=== PATIENT | male | born 1950 | race African-American/Black ===

== ENCOUNTER 2016-10-07 22:03 | Inpatient (IN) | payer BC, OTHER ==
[2016-10-07 22:08] VITALS: BMI 23.3
--- NOTE | 2016-10-07 23:19 | PDOC ---
History of Present Illness - History of Present Illness Initial Comments: 10/08/16 00:43 Patient is a 66 year old male with significant medical hx of pancreatitis s/p pancreatic resection (1983), HTN, [place], cocaine use and ETOH abuse who is presenting to the ED with slurred speech, chest pain, and unsteady gait since yesterday. Yesterday the patient was discharged after a week long incarceration for public urination. The patient states that on his way out he realized that he was stumbling and having difficulty ambulating. The patient does not usually walk with a cane or a walker. Patient was noted to have slurred speech by his daughter when he got home and currently has slurred speech on interview. He is also noted to be drooling during interview, which he states is unusual. The patient also endorses an episode of non-radiating, centralized chest pain that occurred one hour ago without any shortness of breath or palpitations. Social Hx: ETOH abuse, cocaine use. Patients last drink was a beer he had prior to leaving for the ED. The patient last used cocaine last night. Daughter: [phone] <TrentChayito - Last Filed: 10/08/16 01:33> <Krysten,Charlie - Last Filed: 10/08/16 02:38> - General Chief Complaint: Weakness Stated Complaint: CHEST PAIN Time Seen by Provider: 10/07/16 23:19 Past History <Chayito Newman - Last Filed: 10/08/16 01:33> - Past Medical History Asthma: No Cardiac Disorders: No COPD: No Diabetes: No GI Disorders: Yes (H/O PANCREATITIS.) Disorders: No HTN: Yes Kidney Stones: No Suicide Attempt (Hx): No Seizures: No - Surgical History Abdominal Surgery: Yes (pancreatic resection in 1983) Appendectomy: No Cardiac Surgery: No Cholecystectomy: No Lung Surgery: No Neurologic Surgery: No Orthopedic Surgery: Yes (left knee in 1988) - Reproductive History Testicular Surgery: No - Psycho/Social/Smoking Cessation Hx Anxiety: No Suicidal Ideation: No Smoking History: Current every day smoker Have you smoked in the past 12 months: Yes Number of Cigarettes Smoked Daily: 4 Information on smoking cessation initiated: No 'Breaking Loose' booklet given: 10/01/11 Hx Alcohol Use: Yes (4x/week) Drug/Substance Use Hx: Yes (none x 3 months) Substance Use Type: Alcohol, Cocaine Hx Substance Use Treatment: Yes ([facility]) <Charlie Bashir - Last Filed: 10/08/16 02:38> - Past Medical History Allergies/Adverse Reactions: Allergies Allergy/AdvReac Type Severity Reaction Status Date / Time No Known Allergies Allergy Verified 10/07/16 23:29 Home Medications: Ambulatory Orders Unobtainable [Unobtainable] 10/07/16 Review of Systems - Review of Systems Comments:: 10/08/16 00:43 CONSTITUTIONAL: No fever, no chills, no fatigue EYES: No visual changes ENT: No ear pain, no sore throat CARDIOVASCULAR: Chest pain. No palpitations RESPIRATORY: No cough, no SOB GI: No abdominal pain, no nausea, no vomiting, no constipation, no diarrhea GENITOURINARY: No dysuria, no frequency, no hematuria MUSKULOSKELETAL: No backpain, no joint pain, no myalgias SKIN: No rash NEURO: Slurred speech, difficulty ambulating. No headache <Chayito Newman - Last Filed: 10/08/16 01:33> *Physical Exam - Vital Signs Last Vital Signs Temp Pulse Resp BP Pulse Ox 98 F 72 18 123/84 96 10/07/16 22:05 10/07/16 22:05 10/07/16 22:05 10/07/16 22:05 10/07/16 22:05 <Chayito Newman - Last Filed: 10/08/16 01:33> - Vital Signs Last Vital Signs Temp Pulse Resp BP Pulse Ox 98 F 72 18 123/84 96 10/07/16 22:05 10/07/16 22:05 10/07/16 22:05 10/07/16 22:05 10/07/16 22:05 - Physical Exam Comments: 10/08/16 02:26 EXAMINATION CONSTITUTIONAL: alert, awake; follows commands; + aob; in no apparent distress HEAD: Normocephalic; atraumatic EYES: PERRL; EOM intact; no scleral icterus; conj-pink ENMT: + minimal flattening of the right nasolabial fold; normal oropharynx NECK: Supple; non-tender; no jvd CARD: Normal S1, S2; no murmurs, rubs, or gallops RESP: Normal chest excursion with respiration; breath sounds clear and equal bilaterally; no wheezes, rhonchi, or rales ABD: Soft, non-distended; non-tender; no palpable organomegaly, no palpable hernias EXT: no obvious derm; limitted left knee fle due to long standing pain; non- tender to palpation; distal pulses intact SKIN: Warm, dry, no rash NEURO: aox3; + dysarthria; no pronation drift; motor: 5/5x4; gait-deferred <Charlie Bashir - Last Filed: 10/08/16 02:38> Heart Score/ECG Review #1 10/08/16 01:29 Sinus rhythm with 1st degree AV block Septal infarct, age undetermined Abnormal ECG <Chayito Newman - Last Filed: 10/08/16 01:33> ED Treatment Course - LABORATORY CBC & Chemistry Diagram: 10/08/16 00:38 10/08/16 00:30 - ADDITIONAL ORDERS Additional order review: 10/08/16 00:38 RBC 3.63 L MCV 97.2 H MCHC 32.5 RDW 13.3 D MPV 8.2 Neutrophils % 44.9 Lymphocytes % 39.9 Monocytes % 11.3 H Eosinophils % 2.3 Basophils % 1.6 - RADIOLOGY Radiograph Interpretation: 10/08/16 01:33 Drying Machine Tender: ([email or web address]) Report Date: 10/08/2016 00:41:00 Report Status: Preliminary Begin of Report Content Referring Physician: Charlie Bashir Patient Name: Alex Camarena THIS IS A PRELIMINARY REPORT FROM IM[facility] EXAM: CT brain without contrast IMAGES: [id number] EXAM DATE AND TIME: 2016-10-08 00:41:30.0 REASON FOR EXAM: Slurred speech and falls COMPARISON: CT brain October 04, 2007 FINDINGS: Involutional changes. No hemorrhage. No mass. Tiny lacunar infarct right alvin of indeterminate age. Otherwise no visible infarct at this time. Osseous structures are intact. THIS DOCUMENT HAS BEEN ELECTRONICALLY SIGNED Mauricio Quiroz MD 10/08/2016 01:11 AMBER Kim Please call Imaging Sustainable Development Policy Analyst [phone] ([phone]) with questions. End of Report Content <Chayito Newman - Last Filed: 10/08/16 01:33> - LABORATORY CBC & Chemistry Diagram: 10/08/16 00:38 10/08/16 00:30 <Charlie Bashir - Last Filed: 10/08/16 02:38> Medical Decision Making - Medical Decision Making 10/08/16 02:31 Patient is a 66-year-old male with history polysubstance abuse, [place], hypertension or [place] with multiple complains including ataxia, associated with frequent falls, dysarthria, intermittent urinary incontinence and intermittent left-sided chest pain. Most patient's symptoms started during or immediately after his incarceration. Patient was discharged 24 hours prior to arrival in the ER. In the ER, patient is awake and alert, with alcohol on breath. Physical exam is noted for dysarthria and minimal flattening of the right nasolabial fold. There is no pronation drift. Patient is unable to ambulate at this time.CT of head shows a small lacunar infarct within the alvin of unknown chronicity. CBC is within normal limit. CMP reveals elevated CPK likely related to cocaine induced rhabdomyolysis with a normal troponin. Moderate hypomagnesemia is also noted. Patient has received IV fluid and IV magnesium sulfate. We'll administer aspirin. Patient has also received IV thiamine. Patient will require admission for continuous IV hydration, cardiac evaluation regarding his chest pain, further evaluation of ataxia and dysarthria which may be related to a Wernicke's encephalopathy versus cerebellar infarct not appreciated on head CT. Will admit. <Charlie Bashir - Last Filed: 10/08/16 02:38> *DC/Admit/Observation/Transfer - Attestations Scribe Attestion: 10/08/16 00:44 Documentation prepared by Chayito Newman, acting as phlebotomist medical lab assistant for Charlie Bashir MD. <Chayito Newman - Last Filed: 10/08/16 01:33> - Discharge Dispostion Admit: Yes <Charlie Bashir - Last Filed: 10/08/16 02:38> Diagnosis at time of Disposition: Dysarthria, Hypomagnesemia Chest pain Qualifiers: Chest pain type: unspecified Qualified Code(s): R07.9 - Chest pain, unspecified Rhabdomyolysis Qualifiers: Rhabdomyolysis type: non-traumatic Qualified Code(s): M62.82 - Rhabdomyolysis - Discharge Dispostion Condition at time of disposition: Fair
[2016-10-07] MEDS ORDERED: THIAMINE HCL 200 MG/2 ML VIAL IVPB ONE (23:34)
[2016-10-08 00:36] LABS: BASOPHIL 1.6 % (0-2.0); EOSINOPHIL 2.3 % (0-4.5); MCH 31.6 pg (25.7-33.7); MCHC 32.5 g/dl (32.0-35.9); MEAN CELL VOLUME 97.2 fl (80-96); MEAN PLT VOLUME 8.2 fl (7.5-11.1); NEUTROPHILS 44.9 % (42.8-82.8); PLATELET COUNT 202 K/MM3 (134-434); RDW 13.3 % (11.9-15.9); WHITE BLOOD COUNT 5.4 K/mm3 (4.0-10.0)
[2016-10-08] MEDS ORDERED: THIAMINE HCL 200 MG/2 ML VIAL ONE (00:49)
[2016-10-08 01:02] LABS: INR 1.19 (0.82-1.09); PROTHROMBIN TIME (PATIENT) 13.1 SEC (9.98-11.88)
[2016-10-08 01:13] LABS: ALBUMIN 3.9 g/dl (3.4-5.0); ANION GAP 11 (8-16); CO2 29 mmol/L (21-32); CREATININE 0.8 mg/dL (0.7-1.3); GLUCOSE,RANDOM 74 mg/dL (74-106); SGPT/ALT 39 U/L (12-78)
[2016-10-08 01:26] LABS: ALK PHOS 68 U/L (45-117); BILIRUBIN,TOTAL 0.3 mg/dL (0.2-1.0); TOT PROT 7.4 g/dl (6.4-8.2); TROPONIN I < 0.02 ng/ml (0.00-0.05)
[2016-10-08 01:28] LABS: MAGNESIUM 1.4 mg/dL (1.8-2.4); SGOT/AST 67 U/L (15-37)
[2016-10-08] MEDS ORDERED: SODIUM CHLORIDE 500 ML IV STA (01:33)
[2016-10-08] MEDS ORDERED: MAGNESIUM SULF 50% (8.12 MEQ/2 ML-1 GM VIAL) IVPB ONE ×2 (01:33→09:02)
[2016-10-08] MEDS ORDERED: ASPIRIN 325 MG TABLET PO ONE (01:34)
[2016-10-08] MEDS ORDERED: ASPIRIN 325 MG ENTERIC COATED TABLET (FP) ONE (02:03)
[2016-10-08] MEDS ORDERED: MAGNESIUM SULF 50% (8.12 MEQ/2 ML-1 GM VIAL) ONE ×2 (02:04→10:10)
--- NOTE | 2016-10-08 02:46 | HP ---
CHIEF COMPLAINT: Chest Pain, Slurred Speech PCP: HISTORY OF PRESENT ILLNESS: This is a 66 y/o male with a past medical history of Hypertension, [place], Pancreatitis s/p pancreatic resection, Polysubstance Abuse- Alcohol, Cocaine. Who presents to the ED with chest pain, slurred speech. Patient received with dysarthia unable to get HPI. Per ED record: who is presenting to the ED with slurred speech, chest pain, and unsteady gait since yesterday. Yesterday the patient was discharged after a week long incarceration for public urination. The patient states that on his way out he realized that he was stumbling and having difficulty ambulating. The patient does not usually walk with a cane or a walker. Patient was noted to have slurred speech by his daughter when he got home and currently has slurred speech on interview. He is also noted to be drooling during interview, which he states is unusual. The patient also endorses an episode of non-radiating, centralized chest pain that occurred one hour ago without any shortness of breath or palpitations. Social Hx: ETOH abuse, cocaine use. Patients last drink was a beer he had prior to leaving for the ED. The patient last used cocaine last night. Daughter: Yesenia Johnson [phone] ER course was notable for: (1) Mg 1.7 (2) CK 1192, Trop < 0.02 (3) EKG- SR with 1st degree AV Block, Septal Infarct, age undetermined Recent Travel: None PAST MEDICAL HISTORY: See HPI PAST SURGICAL HISTORY: L- Knee Social History: Smoking: Cigarettes 1 PPD x 50 yrs Alcohol: Beers Daily Drugs: Cocaine, last use 10/07 Family History: Unable to Obtain Allergies No Known Allergies Allergy (Verified 10/07/16 23:29) HOME MEDICATIONS: Home Medications Medication Instructions Recorded Unobtainable [Unobtainable] 10/07/16 REVIEW OF SYSTEMS CONSTITUTIONAL: Absent: fever, chills, diaphoresis, generalized weakness, malaise, loss of appetite, weight change HEENT: Absent: rhinorrhea, nasal congestion, throat pain, throat swelling, difficulty swallowing, mouth swelling, ear pain, eye pain, visual changes CARDIOVASCULAR: chest pain Absent: syncope, palpitations, irregular heart rate, lightheadedness, peripheral edema RESPIRATORY: Absent: cough, shortness of breath, dyspnea with exertion, orthopnea, wheezing, stridor, hemoptysis GASTROINTESTINAL: Absent: abdominal pain, abdominal distension, nausea, vomiting, diarrhea, constipation, melena, hematochezia GENITOURINARY: Absent: dysuria, frequency, urgency, hesitancy, hematuria, flank pain, genital pain MUSCULOSKELETAL: arthralgia, back pain Absent: myalgia, joint swelling, neck pain SKIN: Absent: rash, itching, pallor HEMATOLOGIC/IMMUNOLOGIC: Absent: easy bleeding, easy bruising, lymphadenopathy, frequent infections ENDOCRINE: Absent: unexplained weight gain, unexplained weight loss, heat intolerance, cold intolerance NEUROLOGIC: unsteady gait, slurred speech Absent: headache, focal weakness or paresthesias, dizziness, seizure, mental status changes, bladder or bowel incontinence PSYCHIATRIC: Absent: anxiety, depression, suicidal or homicidal ideation, hallucinations. PHYSICAL EXAMINATION Vital Signs - 24 hr 10/07/16 22:05 Temperature 98 F Pulse Rate 72 Respiratory 18 Rate Blood Pressure 123/84 O2 Sat by Pulse 96 Oximetry (%) GENERAL: Asleep but easily arousable and oriented x2, in no acute distress. HEAD: Normal with no signs of trauma. EYES: Pupils equal, round and reactive to light, extraocular movements intact, sclera anicteric, conjunctiva clear. No lid lag. EARS, NOSE, THROAT: Ears normal, nares patent, oropharynx clear without exudates. Dry mucous membranes. NECK: Normal range of motion, supple without lymphadenopathy, JVD, or masses. LUNGS: Breath sounds equal, clear to auscultation bilaterally. No wheezes, and no crackles. No accessory muscle use. HEART: Regular rate and rhythm, normal S1 and S2 without murmur, rub or gallop. Chest Pain reproducible to mid-sternum upon palpation ABDOMEN: Soft, nontender, not distended, normoactive bowel sounds, no guarding, no rebound, no masses. No hepatomegaly or splenomegaly. MUSCULOSKELETAL: Normal range of motion at all joints. No bony deformities or tenderness. No CVA tenderness. UPPER EXTREMITIES: 2+ pulses, warm, well-perfused. No cyanosis. No clubbing. No peripheral edema. LOWER EXTREMITIES: 2+ pulses, warm, well-perfused. No calf tenderness. No peripheral edema. NEUROLOGICAL: Cranial nerves II-XII intact. Grasp equal bilaterally, no drift. Gait not observed. Slurred speech PSYCHIATRIC: Cooperative. Good eye contact. Appropriate mood and affect. SKIN: Warm, dry, normal turgor, no rashes or lesions noted, normal capillary refill. Laboratory Results - last 24 hr 10/08/16 10/08/16 10/08/16 00:30 00:30 00:30 WBC RBC Hgb Hct MCV MCHC RDW Plt Count MPV Neutrophils % Lymphocytes % Monocytes % Eosinophils % Basophils % INR 1.19 H Sodium 142 Potassium 3.7 Chloride 102 Carbon Dioxide 29 Anion Gap 11 BUN 10 D Creatinine 0.8 Creat Clearance w eGFR > 60 Random Glucose 74 D Calcium 9.0 Magnesium 1.4 L Total Bilirubin 0.3 AST 67 H D ALT 39 D Alkaline Phosphatase 68 Creatine Kinase 1192 H Troponin I < 0.02 Total Protein 7.4 Albumin 3.9 Alcohol, Quantitative 22.8 H* 10/08/16 00:38 WBC 5.4 RBC 3.63 L Hgb 11.5 L Hct 35.3 L MCV 97.2 H MCHC 32.5 RDW 13.3 D Plt Count 202 MPV 8.2 Neutrophils % 44.9 Lymphocytes % 39.9 Monocytes % 11.3 H Eosinophils % 2.3 Basophils % 1.6 INR Sodium Potassium Chloride Carbon Dioxide Anion Gap BUN Creatinine Creat Clearance w eGFR Random Glucose Calcium Magnesium Total Bilirubin AST ALT Alkaline Phosphatase Creatine Kinase Troponin I Total Protein Albumin Alcohol, Quantitative Heart Score/ECG Review #1 10/08/16 01:29 Sinus rhythm with 1st degree AV block Septal infarct, age undetermined Abnormal ECG <Trent,Chayito - Last Filed: RADIOLOGY Radiograph Interpretation: 10/08/16 01:33 Outpatient Services Director: ([email or web address]) Report Date: 10/08/2016 00:41:00 Report Status: Preliminary Begin of Report Content Referring Physician: Charlie Bashir Patient Name: Alex Camarena THIS IS A PRELIMINARY REPORT FROM IMAGING COMMERCIAL MARKETING SPECIALIST EXAM: CT brain without contrast IMAGES: 399 EXAM DATE AND TIME: 2016-10-08 00:41:30.0 REASON FOR EXAM: Slurred speech and falls COMPARISON: CT brain October 04, 2007 FINDINGS: Involutional changes. No hemorrhage. No mass. Tiny lacunar infarct right alvin of indeterminate age. Otherwise no visible infarct at this time. Osseous structures are intact. THIS DOCUMENT HAS BEEN ELECTRONICALLY SIGNED Mauricio Quiroz MD 10/08/2016 01:11 AMBER Kim Please call Imaging Customer Solutions Specialist [phone] ([phone]) with questions. End of Report Content ASSESSMENT/PLAN: This is a 66 y/o male with a PMHs of: HTN, [place], Pancreatitis, s/p pancreatic resection, Polysubstance Abuse- Cocaine/Alcohol. Admitted to Telemetry Chest Pain, Hypomagnesium, Rhabdomyolosis for further evaluation of their emergent condition. Plan: 1. Cardiac: Chest Pain r/o NH - Tele monitoring - Hx NH - HEART Score 4 - MAKI Score 1 - EKG- see above, no study avail to compare - Chest Xray- see above - Appreciate Cardiology Consult - Serial Enzymes - Asa given in ED - Continue Asa - Hold BB secondary to Cocaine Use - HgbA1C in am - Echo in am - CBC, BMP in am Hypertension - Controlled - Monitor BP - Consider ELVIS/ARB - Avoid BB- Cocaine Use - Monitor renal function 2. Hypomagensium - Likely secondary to Chronic Alcohol Abuse - Cardiac monitoring - Magnesium given in ED - Monitor BMP - Replete as indicated - Monitor phosphorous 3. Rhabdomyolosis - Likely secondary to Cocaine use - Tele monitoring - CK 1192 - NS bolus given in ED - IVF- monitor for fluids overload - Monitor CKs - Urine pending- patient voided on floor, ordered [place] Catheter 4. Neuro: - Slurred Speech - Likely secondary to Alcohol Abuse - CT Head- See above - NIHSS 4 - Swallow Eval - Appreciate Neuro Consult 4. Polysubstance Abuse Alcohol Abuse - ETOH 22.8 - CIWA Ar Score 4 - Monitor DTs - Folic Acid, Thiamine given in ED, will continue - Reassess in am for Librium prn - Alcohol Detox in outpatient when d/c Cocaine Abuse - Discussed with patient cessation - Consider Detox Consult - Will need Outpatient Rehab upon d/c - Continue to monitor Tobacco Dependency - Smoking Cessation discussed with patient - Nicoderm Patch 5. GI: Pancreatitis -stable - hx s/p pancreatic resection - Continue to monitor and treat with interventions accordingly 6. FEN - D5 1/2 NS 100ml/hr - Replete Mg, monitor - Low Na Diet 7. DVT Prophylaxis - SCDs - Heparin SQ Code Status: Full Code Dispo: Requires Inpatient Care Problem List - Problem (1) Chest pain Code(s): R07.9 - CHEST PAIN, UNSPECIFIED Qualifiers: Chest pain type: unspecified Qualified Code(s): R07.9 - Chest pain, unspecified (2) Alcohol dependence Code(s): F10.20 - ALCOHOL DEPENDENCE, UNCOMPLICATED (3) Dysarthria Code(s): R47.1 - DYSARTHRIA AND ANARTHRIA (4) Hypomagnesemia Code(s): E83.42 - HYPOMAGNESEMIA (5) Rhabdomyolysis Code(s): M62.82 - RHABDOMYOLYSIS Qualifiers: Rhabdomyolysis type: non-traumatic Qualified Code(s): M62.82 - Rhabdomyolysis (6) HTN (hypertension) Code(s): I10 - ESSENTIAL (PRIMARY) HYPERTENSION (7) Cocaine abuse Code(s): F14.10 - COCAINE ABUSE, UNCOMPLICATED (8) History of NH (myocardial infarction) Code(s): I25.2 - OLD MYOCARDIAL INFARCTION (9) DVT prophylaxis Code(s): XML7997 - Visit type - Emergency Visit Emergency Visit: Yes ED Registration Date: 10/08/16 Care time: The patient presented to the Emergency Department on the above date and was hospitalized for further evaluation of their emergent condition. - New Patient This patient is new to me today: Yes Date on this admission: 10/08/16 - Critical Care Critical Care patient: No
[2016-10-08] MEDS ORDERED: DEXTROSE 5%-0.45% SALINE 1,000 ML IV SCH (03:00)
[2016-10-08 06:19] LABS: EOSINOPHIL 2.6 % (0-4.5); MCH 31.8 pg (25.7-33.7); MCHC 32.9 g/dl (32.0-35.9); MEAN CELL VOLUME 96.8 fl (80-96); MEAN PLT VOLUME 8.5 fl (7.5-11.1); NEUTROPHILS 49.3 % (42.8-82.8); PLATELET COUNT 203 K/MM3 (134-434); RDW 13.9 % (11.9-15.9)
[2016-10-08 06:44] LABS: ANION GAP 6 (8-16); CALCIUM 8.4 mg/dL (8.5-10.1); CHOLESTEROL 117 mg/dL (50-200); CO2 32 mmol/L (21-32); CREATININE 0.8 mg/dL (0.7-1.3); GLUCOSE,RANDOM 93 mg/dL (74-106); LDL CHOLESTEROL (ONLY SJRH) 48 mg/dL (5-100); PHOSPHOROUS 3.1 mg/dL (2.5-4.9)
[2016-10-08 06:56] LABS: TROPONIN I < 0.02 ng/ml (0.00-0.05)
[2016-10-08] MEDS ORDERED: POTASSIUM CHLORIDE TABS 20 MEQ TABLET.ER (FP) PO ONE ×2 (07:45→14:00)
--- NOTE | 2016-10-08 09:35 | EKG ---
Test Reason : Blood Pressure : / mmHG Vent. Rate : 066 BPM Atrial Rate : 066 BPM P-R Int : 218 ms QRS Dur : 118 ms QT Int : 438 ms P-R-T Axes : 052 058 081 degrees QTc Int : 459 ms SINUS RHYTHM WITH 1ST DEGREE A-V BLOCK SEPTAL INFARCT , AGE UNDETERMINED ABNORMAL ECG WHEN COMPARED WITH ECG OF 28-FEB-2008 13:30, SEPTAL INFARCT IS NOW PRESENT QT HAS LENGTHENED Confirmed by APOLINAR KASPER MD ([id number]) on 10/08/2016 9:34:32 AM Referred By: Confirmed By:APOLINAR KASPER MD
[2016-10-08] MEDS ORDERED: FOLIC ACID 1 MG TABLET (FP) PO ONE (10:00)
[2016-10-08] MEDS: ASPIRIN 81 MG CHEWABLE TABLETS PO SCH (10:06)
--- NOTE | 2016-10-08 10:59 | CONSULT ---
Admitting History and Physical - Primary Care Physician PCP: Trung Nguyen - Admission History of Present Illness: Per EMR: "HISTORY OF PRESENT ILLNESS: This is a 66 y/o male with a past medical history of Hypertension, [place], Pancreatitis s/p pancreatic resection, Polysubstance Abuse- Alcohol, Cocaine. Who presents to the ED with chest pain, slurred speech. Patient received with dysarthia unable to get HPI. Per ED record: who is presenting to the ED with slurred speech, chest pain, and unsteady gait since yesterday. Yesterday the patient was discharged after a week long incarceration for public urination. The patient states that on his way out he realized that he was stumbling and having difficulty ambulating. The patient does not usually walk with a cane or a walker. Patient was noted to have slurred speech by his daughter when he got home and currently has slurred speech on interview. He is also noted to be drooling during interview, which he states is unusual. The patient also endorses an episode of non-radiating, centralized chest pain that occurred one hour ago without any shortness of breath or palpitations. Social Hx: ETOH abuse, cocaine use. Patients last drink was a beer he had prior to leaving for the ED. The patient last used cocaine last night." Tearful. Verbal but imprecise articulation. Fully oriented. History Source: Patient, Medical Record Limitations to Obtaining History: Clinical Condition - Smoking History Smoking history: Current every day smoker Have you smoked in the past 12 months: Yes Aproximately how many cigarettes per day: 4 - Alcohol/Substance Use Hx Alcohol Use: Yes (4x/week) History - Admission Reason For Visit: DYSARTHRIA/ CHEST PAIN - Diagnostics X-ray: Report Reviewed CT Scan: Report Reviewed - General Mental Status: Alert and Oriented, Awake and Alert, Able to Follow Commands Attention: Intact Ability to Follow Directions: Good - Hearing Hearing: Functional Speech Evaluation - Communication Primary Language: CHADIAN Oral Expression Ability: Yes: Mild Impairment - Speech Production Able to Make Needs Known: Yes: Mildly Impaired Intelligibility: Yes: Mildly Impaired - Speech Characteristics Voice Loudness: Mildly Soft/Quiet Voice Pitch: Yes: Normal Voice Phonatory-based Quality: Yes: Normal Speech Pattern: Impaired Speech Clarity: < 75% Nasal Resonance: Normal Articulation: Yes: Imprecise Rate of Speech: Too Fast - Language/Auditory Comprehension Follows: Yes: 1 Stage Simple Commands - Language/Verbal Expression Able to Communicate Wants and Needs: Yes: Mildly Impaired - Swallow Evaluation/Bedside Assessment Current Nutritional Intake: Regular, Thin Liquids Oral Secretions: Yes: WFL Dentition: Yes: Edentulous, Missing Teeth Facial Symmetry on Retraction: Symmetrical Facial Movement: Controlled Sensation: Normal Against Resistance Opening: Normal Against Resistance Closing: Normal Pucker Lips: Normal Smile: Normal Lingual Movement: Normal Lingual Speed of Movement: Normal Lingual Movement Strgth Against Opposition: Normal Lingual Movement Characteristics: Normal Velopharyngeal Movement: Normal Laryngeal Elevation: WFL Laryngeal Movement: Able to Palpate Rate of Intake: WFL Bolus Size: WFL Labial Seal: WFL Chewing: Impaired (extended time, edentulous) A-P Transit: WFL Pocketing: None Coughing/Throat Clear: No Change in Voice: No Recommendations - Speech Evaluation, Impression/Plan Impression: Tearful. Verbal but imprecise articulation. Fully oriented.Oral- peripheral evaluation symmetric Edentulous - Dysphagia Impressions/Plan Dysphagia Impressions: Mild Impairment (possible difficulty with mastication), Ongoing Evaluation *Silent aspiration: cannot be R/O at bedside - Recommendations Diet Consistency: Regular (very soft foods, may need ground meat with gravy) Medication Administration: Whole with water Liquids: Thin Liquids
[2016-10-08] MEDS: SODIUM CHLORIDE 1,000 ML IV SCH (11:17)
[2016-10-08] MEDS ORDERED: chlordiazePOXIDE HCL 25 MG CAPSULE PO PRN ×2 (11:43→15:17)
--- NOTE | 2016-10-08 11:45 | PN ---
Physical Exam: SUBJECTIVE: Patient seen and examined OBJECTIVE: Mildly anxious on exam, crying. Oxygen saturations noted to be in the 80s, 2 liters of nasal cannula ordered CIWA 1 on exam - no signs of acute alcohol withdrawal-Librium PRN with close monitoring If patient exhibits s/s of withdrawal, will order Librium protocol I spoke to patient's daughter Keyona [phone] and daughter confirmed that her father previously incarcerated for 1 week prior to admission and returned home yesterday. Daughter states that patient received Librium while incarcerated for ETOH withdrawal. Neuro consulted Alcohol level 22 Mag and K repleted, repeat labs in afternoon, CK elevated Blood and urine cultures to rule out infection Placed on a Librium taper by Dr. Mikie Cha Period Temp Pulse Resp BP Sys/Ramos Pulse Ox Last 24 Hr 97.6 F 50-68 14-14 99-111/62-86 95-100 GENERAL: The patient is awake, alert, and oriented, slow to respond, slurred speech HEAD: Normal with no signs of trauma. NECK: Trachea midline, full range of motion, supple. LUNGS: Breath sounds equal, clear/diminished to auscultation bilaterally-oxygen 87 on room air, now on 2 liters of nasal cannula HEART: sinus bradycardia 50s, chest pain reproducible on palpation ABDOMEN: Soft, nontender, nondistended, normoactive bowel sounds, no guarding, no rebound, no hepatosplenomegaly, no masses. EXTREMITIES: no edema. NEUROLOGICAL: slurred speech, crying, mild anxiety, facial symmetry PSYCH:depressed affect, crying SKIN: Warm, dry, normal turgor, no rashes or lesions noted Laboratory Results - last 24 hr 10/08/16 10/08/16 10/08/16 06:03 06:03 06:03 WBC 6.0 RBC 3.50 L Hgb 11.1 L Hct 33.8 L MCV 96.8 H MCHC 32.9 RDW 13.9 Plt Count 203 MPV 8.5 Neutrophils % 49.3 Lymphocytes % 33.9 Monocytes % 13.2 H Eosinophils % 2.6 Basophils % 1.0 Sodium 142 Potassium 3.1 L Chloride 104 Carbon Dioxide 32 Anion Gap 6 L BUN 10 Creatinine 0.8 Random Glucose 93 D Hemoglobin A1c % 6.2 H Calcium 8.4 L Phosphorus 3.1 Magnesium Creatine Kinase 1094 H CK-MB (CK-2) Rel Index Troponin I < 0.02 Triglycerides 51 Cholesterol 117 Total LDL Cholesterol 48 HDL Cholesterol 71 H 10/08/16 10/08/16 06:03 08:28 WBC RBC Hgb Hct MCV MCHC RDW Plt Count MPV Neutrophils % Lymphocytes % Monocytes % Eosinophils % Basophils % Sodium Potassium Chloride Carbon Dioxide Anion Gap BUN Creatinine Random Glucose Hemoglobin A1c % Calcium Phosphorus Magnesium 1.5 L Creatine Kinase CK-MB (CK-2) Rel Index Cancelled Troponin I Triglycerides Cholesterol Total LDL Cholesterol HDL Cholesterol Active Medications Generic Name Dose Route Start Last Admin Trade Name Freq PRN Reason Stop Dose Admin Aspirin 81 mg 10/08/16 10:00 10/08/16 10:06 Asa - PO 81 mg DAILY ALLY Administration Chlordiazepoxide HCl 25 mg 10/08/16 11:43 Librium - PO Q4H PRN WITHDRAWAL(CONT SUBST) Sodium Chloride 1,000 mls @ 125 mls/hr 10/08/16 11:15 10/08/16 11:17 Normal Saline - IV 125 mls/hr ASDIR ALLY Administration Potassium Chloride 20 meq 10/08/16 14:00 K-Dur - PO 10/08/16 14:01 ONCE ONE Thiamine HCl 100 mg 10/09/16 10:00 Vitamin B1 - PO DAILY ALLY ASSESSMENT/PLAN: Patient is a 66 year old male with a significant past medical history of hypertension, MO, pancreatitis s/p pancreatic resection, polysubstance abuse and alcohol abuse. He presented to the ER on 10/08/2016 with chest pain, slurred speech and unsteady gait since yesterday. Yesterday the patient was discharged after a week long incarceration for public urination. The patient states that on his way out he realized that he was stumbling and having difficulty ambulating. Patient was noted to have slurred speech by his daughter when he got home and currently has slurred speech on exam. The patient also endorses an episode of non-radiating, centralized chest pain that is reproducible on exam. Imagin10/08/2016 CT Head - No evidence of acute intracranial hemorrhage, edema, midline shift, mass effect or skull fracture 10/08/2016 Brain MRI ordered and pending Neurology: Rule out CVA Assessment/Plan: Patient presents with slurred speech and unsteady gait Continue ASA 81mg, started on Lipitor Physical Therapy requested Neurology consulted CT Head with no evidence of acute intracranial hemorrhage, edema, midline shift , mass effect or skull fracture Brain MRI ordered Blood cultures and urine cultures ordered to rule out infection Cardiology: Myocardial Infarction - history Assessment/Plan: On ASA 81mg Beta blockers contraindicated secondary to cocaine use BP at goal, sinus bradycardia on cardiac rehabilitation program director Troponins negative x 3 Cardiology following Muscular/Skeletal: Rhabdomylysis - acute Assessment/Plan: CPK [id number] Likely secondary to recent cocaine use Monitor CPK ivf of NS @ 125cc/hr Endocrine: Assessment/Plan: hmga1c 6.4, Start on sliding scale BGMs before meals Psyche: ETOH abuse/withdrawal Assessment/Plan: started on a Librium taper by Dr. Mikie Stout Fluids: Normal saline @125cc/hr Electrolytes: hypomagnesium repleted, hypokalemia repleted Nutrition: low sodium diet Prophylaxis: GI: protonix 40mg daily DVT: Lovenox 40mg daily Disposition: Patient requires inpatient hospitalization. Full Code. Visit type - Emergency Visit Emergency Visit: Yes ED Registration Date: 10/08/16 Care time: The patient presented to the Emergency Department on the above date and was hospitalized for further evaluation of their emergent condition. - New Patient This patient is new to me today: Yes Date on this admission: 10/08/16 - Critical Care Critical Care patient: No - Discharge Referral Referred to [facility] No
[2016-10-08 13:51] LABS: TROPONIN I < 0.02 ng/ml (0.00-0.05)
[2016-10-08] MEDS: FOLIC ACID 1 MG TABLET (FP) PO SCH (14:00)
--- NOTE | 2016-10-08 15:24 | CONSULT ---
Consult Detox [facility] Reason for Current Admission/Consult: Alcohol Detox Referred by:: Trung Nguyen NP - History History of Present Illness: 66 y/o man with a long hx. of alcoholism is admitted to r/o cva.Pt. has hx. of pancreatitis and pancreatic resection surgery. - History Source History Provided By: Patient, Medical Record - Alcohol/Substance Use Hx Alcohol Use: Yes (4x/week) - Current Drug/Alcohol Use Alcohol Route: Oral Frequency: Daily Amount used: Beer 1(6pack) Date of Last Use: 10/08/16 - Significant Medical Findings: Laboratory Last Values WBC 6.0 K/mm3 (4.0-10.0) 10/08/16 06:03 RBC 3.50 M/mm3 (4.00-5.60) L 10/08/16 06:03 Hgb 11.1 GM/dL (11.7-16.9) L 10/08/16 06:03 Hct 33.8 % (35.4-49) L 10/08/16 06:03 MCV 96.8 fl (80-96) H 10/08/16 06:03 MCHC 32.9 g/dl (32.0-35.9) 10/08/16 06:03 RDW 13.9 % (11.9-15.9) 10/08/16 06:03 Plt Count 203 K/MM3 (134-434) 10/08/16 06:03 MPV 8.5 fl (7.5-11.1) 10/08/16 06:03 Neutrophils % 49.3 % (42.8-82.8) 10/08/16 06:03 Lymphocytes % 33.9 % (8-40) 10/08/16 06:03 Monocytes % 13.2 % (3.8-10.2) H 10/08/16 06:03 Eosinophils % 2.6 % (0-4.5) 10/08/16 06:03 Basophils % 1.0 % (0-2.0) 10/08/16 06:03 INR 1.19 (0.82-1.09) H 10/08/16 00:30 Sodium 142 mmol/L (136-145) 10/08/16 06:03 Potassium 3.1 mmol/L (3.5-5.1) L 10/08/16 06:03 Chloride 104 mmol/L (98-107) 10/08/16 06:03 Carbon Dioxide 32 mmol/L (21-32) 10/08/16 06:03 Anion Gap 6 (8-16) L 10/08/16 06:03 BUN 10 mg/dL (7-18) 10/08/16 06:03 Creatinine 0.8 mg/dL (0.7-1.3) 10/08/16 06:03 Creat Clearance w eGFR > 60 (>60) 10/08/16 00:30 Random Glucose 93 mg/dL (74-106) D 10/08/16 06:03 Hemoglobin A1c % 6.2 % (4.8-6.0) H 10/08/16 06:03 Calcium 8.4 mg/dL (8.5-10.1) L 10/08/16 06:03 Phosphorus 3.1 mg/dL (2.5-4.9) 10/08/16 06:03 Magnesium 1.5 mg/dL (1.8-2.4) L 10/08/16 08:28 Total Bilirubin 0.3 mg/dL (0.2-1.0) 10/08/16 00:30 AST 67 U/L (15-37) H D 10/08/16 00:30 ALT 39 U/L (12-78) D 10/08/16 00:30 Alkaline Phosphatase 68 U/L (45-117) 10/08/16 00:30 Creatine Kinase 970 IU/L (39-308) H 10/08/16 12:40 Creatine Kinase Index 1.3 % (0.0-5.0) 10/08/16 12:40 CK-MB (CK-2) 12.672 ng/ml (0.5-3.6) H 10/08/16 12:40 CK-MB (CK-2) Rel Index Cancelled 10/08/16 00:30 Troponin I < 0.02 ng/ml (0.00-0.05) 10/08/16 12:40 Total Protein 7.4 g/dl (6.4-8.2) 10/08/16 00:30 Albumin 3.9 g/dl (3.4-5.0) 10/08/16 00:30 Triglycerides 51 mg/dL (35-160) 10/08/16 06:03 Cholesterol 117 mg/dL (50-200) 10/08/16 06:03 Total LDL Cholesterol 48 mg/dL (5-100) 10/08/16 06:03 HDL Cholesterol 71 mg/dL (40-60) H 10/08/16 06:03 Alcohol, Quantitative 22.8 mg/dl (0-5) H* 10/08/16 00:30 labs noted CIWA Score - CIWA Score Nausea/Vomitin-Mild Nausea/No Vomiting Muscle Tremors: 4-Moderate,w/Arms Extend Anxiety: 4-Mod. Anxious/Guarded Agitation: 3 Paroxysmal Sweats: 3 Orientation: 2-Disoriented Date<2 days Tacttile Disturbances: 1-Very Mild Itch/Numbness Auditory Disturbances: 0-None Visual Disturbances: 0-None Headache: 0-None Present CIWA-Ar Total Score: 18 Assessment Plan - Diagnosis (1) Alcohol dependence with uncomplicated withdrawal Status: Acute - Plan Plan: Detox with librium and after care treatment to avoid relapse. - Medication Detox Regimen/Protocol: Librium
--- NOTE | 2016-10-08 16:18 | CON.CARD ---
Cardiology Consult (text) - Consultation Consultation Note: CC: CP 66 yo smoker with h/o HTN, MA? (possible cath 6 months ago), pancreatitis s/p pancreatic resection (1983), cocaine use and ETOH abuse who is presenting to the ED with slurred speech, unsteady gait and who also noted symptoms of cp. Has been in alf since yesterday and was given librium. Upon discharge he drank alcohol and smoked cocaine. Subsequently, he noticed that he was staggering/off balance and states he did not drink enough alcohol to cause such symptoms. Additionally his daughter noted slurred speech although he states this is as a result of not wearing dentures. Per report he also endorsed brief episode of cp without any shortness of breath or palpitations. However, currently denying discomfort to me. PEARSON after walking 1/2 flight of stairs stable. States 6 months ago had episode of CP and was brought to [facility] where he describes something being done to his arm (an injection vs. radial artery catheterization?). He says he may have been "cleaned out" and being discharged on three medications which he is no longer taking. Does not recall the name plavix or clopidogrel, unclear if he was stented. no orthopnea, pnd, le edema, palps, bleeding no f/c/s, n/v/d, headache, cough, congestion, rashes. + raynaud's symptoms, + joint discomfort. pmhx/pshx: per hpi Social Hx: tobacco, ETOH abuse, crack/cocaine use. family hx: denies premature cad. ros: per hpi Ambulatory Orders Unobtainable [Unobtainable] 10/07/16 Current Medications Aspirin (Asa -) 81 mg PO DAILY [facility] Last Admin: 10/08/16 10:06 Dose: 81 mg Chlordiazepoxide HCl (Librium -) 25 mg PO Q4H PRN PRN Reason: WITHDRAWAL(CONT SUBST) Stop: 10/11/16 15:16 Chlordiazepoxide HCl (Librium -) 50 mg PO [id number] ALLY Stop: 10/09/16 11:01 Chlordiazepoxide HCl (Librium -) 25 mg PO [id number] ALLY Stop: 10/10/16 11:01 Chlordiazepoxide HCl (Librium -) 15 mg PO [id number] ALLY Stop: 10/11/16 11:01 Folic Acid (Folic Acid -) 1 mg PO DAILY [facility] Last Admin: 10/08/16 14:00 Dose: 1 mg Sodium Chloride (Normal Saline -) 1,000 mls @ 125 mls/hr IV ASDIR [facility] Last Admin: 10/08/16 11:17 Dose: 125 mls/hr Thiamine HCl (Vitamin B1 -) 100 mg PO DAILY [facility] Vital Signs - 24 hr 10/07/16 10/07/16 10/08/16 22:05 22:19 06:46 Temperature 98 F 97.6 F Pulse Rate 72 Pulse Rate [ 68 Left] Respiratory 18 14 Rate Blood Pressure 123/84 Blood Pressure 111/62 [Left Arm] O2 Sat by Pulse 96 96 96 Oximetry (%) 10/08/16 10/08/16 10/08/16 07:45 11:04 11:44 Temperature 97.4 F L Pulse Rate Pulse Rate [ 55 L 50 L 52 L Left] Respiratory 14 14 14 Rate Blood Pressure Blood Pressure 99/69 109/86 113/89 [Left Arm] O2 Sat by Pulse 100 95 95 Oximetry (%) 10/08/16 10/08/16 14:35 14:41 Temperature 98.7 F Pulse Rate 60 Pulse Rate [ Left] Respiratory 16 Rate Blood Pressure 101/62 Blood Pressure [Left Arm] O2 Sat by Pulse 99 Oximetry (%) Intake & Output 10/06/16 10/07/16 10/08/16 10/09/16 07:59 07:59 07:59 07:59 Intake Total 440 Balance 440 Weight 145 lb 145 lb nad, calm jvd flat, neck supple diminshed air mov't, exp wheezes rrr nl s1, s2 no mrg + bs soft nt nd ext without e/c/c + tapering of digits aaox3 no jaundice, diaphoresis no carotid bruits CBC, BMP 10/08/16 06:03 10/08/16 06:03 Laboratory Tests 10/08/16 10/08/16 10/08/16 00:30 00:30 06:03 INR 1.19 H Hemoglobin A1c % Magnesium Total Bilirubin 0.3 AST 67 H D ALT 39 D Alkaline Phosphatase 68 Creatine Kinase 1192 H 1094 H CK-MB (CK-2) 15.010 H Troponin I < 0.02 < 0.02 Triglycerides 51 Total LDL Cholesterol 48 HDL Cholesterol 71 H 10/08/16 10/08/16 10/08/16 06:03 08:28 12:40 INR Hemoglobin A1c % 6.2 H Magnesium 1.5 L Total Bilirubin AST ALT Alkaline Phosphatase Creatine Kinase 970 H CK-MB (CK-2) Troponin I < 0.02 Triglycerides Total LDL Cholesterol HDL Cholesterol EKG reviewed, sr av delay, poor r wave progression. no acute ischemic changes tele: SR/SB echo here: mild conc lvh. nl lvef. mild anterior apical HK. 1+ TR. bline ao root dilation CXR: chronic parenchymal/pleural disease in right paratracheal region, no acute pulmonary disease 66 yo smoker with h/o HTN, MA? (possible cath 6 months ago), pancreatitis s/p pancreatic resection (1983), cocaine use and ETOH abuse who is presenting to the ED with slurred speech, unsteady gait and who also noted symptoms of cp. CP - elevated CK c/w recent cocaine use trop negative. patient currently denies chest discomfort to me. prior cardiac hx unclear. Would clarify with daughter whether he had cardiac catheterization/cath 6 months ago. If so, patient has not been able to be compliant with DAPT and would be a poor candidate for future intervention especially in light of having other reasons to have had chest discomfort such as recent cocaine use, h/o pancreatitis - echo with distal HK. Would manage medically with ASA. Would not start statin given elevated ck, etoh abuse and abnormal lfts. - recommend ongoing outpatient follow up. - electrolyte repletion Abnormal gait - ongoing neuro work up per pmd tobacco/crack cocaine use. - cessation counseling
[2016-10-08 17:16] LABS: MAGNESIUM 2.1 mg/dL (1.8-2.4)
[2016-10-08] MEDS: chlordiazePOXIDE HCL 25 MG CAPSULE PO SCH ×2 (17:30→22:09)
[2016-10-08 20:04] LABS: URINE APPEARANCE CLEAR; URINE BILIRUBIN NEGATIVE (NEGATIVE); URINE BLOOD NEGATIVE (NEGATIVE); URINE COLOR LTYELLOW; URINE GLUCOSE (UA) NEGATIVE (NEGATIVE); URINE KETONE NEGATIVE (NEGATIVE); URINE LEUK ESTERASE NEGATIVE (NEGATIVE); URINE NITRITE NEGATIVE (NEGATIVE); URINE PROTEIN NEGATIVE (NEGATIVE); URINE UROBILINOGEN NEGATIVE E.U./dl (0.2-1.0)
[2016-10-08] MEDS ORDERED: ATORVASTATIN CA 20 MG TABLET (FP) PO SCH (22:00)
[2016-10-08] MEDS: INSULIN SLIDING SCALE (NOVOLOG) 1 VIAL SQ SCH (22:01)
[2016-10-08] MEDS: guaiFENesin 200 MG/10 ML 10 ML UNIT-DOSE CUPS PO PRN (22:08)
[2016-10-08] MEDS: ENOXAPARIN NA (PORCINE) 40 MG/0.4 ML DISP.SYRIN SQ SCH (22:08)
[2016-10-09] MEDS: chlordiazePOXIDE HCL 25 MG CAPSULE PO SCH ×4 (05:06→22:36)
[2016-10-09] MEDS: INSULIN SLIDING SCALE (NOVOLOG) 1 VIAL SQ SCH (06:01)
[2016-10-09 06:45] LABS: BASOPHIL 0.7 % (0-2.0); EOSINOPHIL 1.7 % (0-4.5); MCH 32.5 pg (25.7-33.7); MCHC 33.4 g/dl (32.0-35.9); MEAN CELL VOLUME 97.3 fl (80-96); MEAN PLT VOLUME 8.4 fl (7.5-11.1); NEUTROPHILS 53.4 % (42.8-82.8); PLATELET COUNT 184 K/MM3 (134-434); RDW 13.8 % (11.9-15.9); WHITE BLOOD COUNT 5.7 K/mm3 (4.0-10.0)
[2016-10-09 07:42] LABS: ALBUMIN 3.1 g/dl (3.4-5.0); ANION GAP 8 (8-16); CALCIUM 8.4 mg/dL (8.5-10.1); CO2 28 mmol/L (21-32); GLUCOSE,RANDOM 97 mg/dL (74-106); MAGNESIUM 1.6 mg/dL (1.8-2.4)
[2016-10-09 07:46] LABS: ALK PHOS 62 U/L (45-117); BILIRUBIN,TOTAL 0.3 mg/dL (0.2-1.0); CREATININE 0.7 mg/dL (0.7-1.3); SGOT/AST 38 U/L (15-37); SGPT/ALT 28 U/L (12-78); TOT PROT 5.9 g/dl (6.4-8.2)
[2016-10-09] MEDS ORDERED: PANTOPRAZOLE 40 MG TABLET (FP) PO SCH (10:00)
[2016-10-09] MEDS: ENOXAPARIN NA (PORCINE) 40 MG/0.4 ML DISP.SYRIN SQ SCH (10:42)
[2016-10-09] MEDS: THIAMINE HCL 100 MG TABLET (FP) PO SCH (10:42)
[2016-10-09] MEDS: ASPIRIN 81 MG CHEWABLE TABLETS PO SCH (10:42)
[2016-10-09] MEDS: FOLIC ACID 1 MG TABLET (FP) PO SCH (10:42)
[2016-10-09] MEDS: guaiFENesin 200 MG/10 ML 10 ML UNIT-DOSE CUPS PO PRN ×2 (10:44→22:56)
[2016-10-09] MEDS ORDERED: MAGNESIUM SULF 50% (8.12 MEQ/2 ML-1 GM VIAL) IVPB ONE (10:45)
--- NOTE | 2016-10-09 11:17 | PN ---
Progress Note (short form) - Note Progress Note: s: no cp sob palps dizzy o: Vital Signs Period Temp Pulse Resp BP Sys/Ramos Pulse Ox Last 24 Hr 97.4 F-98.7 F 50-60 14-20 86-113/51-89 95-100 nad, calm jvd flat, neck supple exp wheezes rrr nl s1, s2 no mrg + bs soft nt nd ext without e/c/c aaox3 no jaundice, diaphoresis no carotid bruits Current Medications Generic Name Dose Route Start Last Admin Trade Name Freq PRN Reason Stop Dose Admin Aspirin 81 mg 10/08/16 10:00 10/09/16 10:42 Asa - PO 81 mg DAILY ALLY Administration Chlordiazepoxide HCl 25 mg 10/08/16 15:17 Librium - PO 10/11/16 15:16 Q4H PRN WITHDRAWAL(CONT SUBST) Chlordiazepoxide HCl 25 mg 10/09/16 17:00 Librium - PO 10/10/16 11:01 [id number] ALLY Chlordiazepoxide HCl 15 mg 10/10/16 17:00 Librium - PO 10/11/16 11:01 [id number] ALLY Enoxaparin Sodium 40 mg 10/08/16 22:00 10/09/16 10:42 Lovenox - SQ 40 mg DAILY ALLY Administration Folic Acid 1 mg 10/08/16 12:15 10/09/16 10:42 Folic Acid - PO 1 mg DAILY ALLY Administration Guaifenesin 10 ml 10/08/16 19:57 10/09/16 10:44 Robitussin - PO 10 ml Q4H PRN Administration COUGH Sodium Chloride 1,000 mls @ 125 mls/hr 10/08/16 11:15 10/08/16 11:17 Normal Saline - IV 125 mls/hr ASDIR ALLY Administration Thiamine HCl 100 mg 10/09/16 10:00 10/09/16 10:42 Vitamin B1 - PO 100 mg DAILY ALLY Administration CBC, BMP 10/09/16 06:00 10/09/16 06:00 EKG reviewed, sr av delay, poor r wave progression. no acute ischemic changes tele: SR/SB echo 09/2016: mild conc lvh. nl lvef. mild anterior apical HK. 1+ TR. bline ao root dilation CXR: chronic parenchymal/pleural disease in right paratracheal region, no acute pulmonary disease a/p: 66 yo smoker with h/o HTN, [place]? (possible cath 6 months ago), pancreatitis s /p pancreatic resection (1983), cocaine use and ETOH abuse who is presenting to the ED with slurred speech, unsteady gait and who also noted symptoms of cp. CP - elevated CK c/w recent cocaine use, trop negative. prior cardiac hx unclear. Would clarify with daughter whether he had cardiac catheterization/cath 6 months ago. With active drug use pt has not been compliant with meds and thus would be a poor candidate for future interventions. -other reasons to have had chest discomfort such as recent cocaine use, h/o pancreatitis may be more likely than cad here -echo with distal HK. Would manage medically with ASA. Would not start statin given elevated ck, etoh abuse and abnormal lfts. -no bb given cocaine use and sinus kennedi here -recommend ongoing outpatient follow up. Abnormal gait - ongoing neuro work up per pmd tobacco/crack cocaine use. - cessation counseling htn: -stable off meds, monitor for now
--- NOTE | 2016-10-09 12:23 | CONSULT ---
Consult - text type - Consultation Consultation Note: Neurology History of Present Illness Patient is a 66 year old male with significant medical hx of pancreatitis s/p pancreatic resection (1983), HTN, MS, cocaine use and ETOH abuse who is presenting to the ED with slurred speech, chest pain, and unsteady gait since yesterday. Yesterday the patient was discharged after a week long incarceration for public urination. The patient states that on his way out he realized that he was stumbling and having difficulty ambulating. The patient does not usually walk with a cane or a walker. Patient was noted to have slurred speech by his daughter and brought to the hospital. He was admitted and consult for Dr. 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 Patient speech disturbance likely related to substances and currently producing speech but will obtain MRI brain. Past History Asthma: No Cardiac Disorders: No COPD: No Diabetes: No GI Disorders: Yes (H/O PANCREATITIS.) Disorders: No HTN: Yes Kidney Stones: No Suicide Attempt (Hx): No Seizures: No - Surgical History Abdominal Surgery: Yes (pancreatic resection in 1983) Appendectomy: No Cardiac Surgery: No Cholecystectomy: No Lung Surgery: No Neurologic Surgery: No Orthopedic Surgery: Yes (left knee in 1988) - Reproductive History Testicular Surgery: No - Psycho/Social/Smoking Cessation Hx Anxiety: No Suicidal Ideation: No Smoking History: Current every day smoker Have you smoked in the past 12 months: Yes Number of Cigarettes Smoked Daily: 4 Information on smoking cessation initiated: No 'Breaking Loose' booklet given: 10/01/11 Hx Alcohol Use: Yes (4x/week) Drug/Substance Use Hx: Yes (none x 3 months) Substance Use Type: Alcohol, Cocaine Hx Substance Use Treatment: Yes ([facility]) Allergies/Adverse Reactions: Allergies Allergy/AdvReac Type Severity Reaction Status Date / Time No Known Allergies Allergy Verified 10/07/16 23:29 Review of Systems - Review of Systems Comments:: 10/08/16 00:43 CONSTITUTIONAL: No fever, no chills, no fatigue EYES: No visual changes ENT: No ear pain, no sore throat CARDIOVASCULAR: Chest pain. No palpitations RESPIRATORY: No cough, no SOB GI: No abdominal pain, no nausea, no vomiting, no constipation, no diarrhea GENITOURINARY: No dysuria, no frequency, no hematuria MUSKULOSKELETAL: No backpain, no joint pain, no myalgias SKIN: No rash NEURO: Slurred speech, difficulty ambulating. No headache *Physical Exam Vital Signs Temperature 97.7 F 10/09/16 05:48 Pulse Rate 50 L 10/09/16 05:48 Respiratory Rate 18 10/09/16 05:48 Blood Pressure 105/65 10/09/16 05:48 O2 Sat by Pulse Oximetry (%) 100 10/08/16 21:00 CONSTITUTIONAL: alert, awake; follows commands; + aob; in no apparent distress HEAD: Normocephalic; atraumatic EYES: PERRL; EOM intact; no scleral icterus; conj-pink ENMT: + minimal flattening of the right nasolabial fold; normal oropharynx NECK: Supple; non-tender; no jvd CARD: Normal S1, S2; no murmurs, rubs, or gallops RESP: Normal chest excursion with respiration; breath sounds clear and equal bilaterally; no wheezes, rhonchi, or rales ABD: Soft, non-distended; non-tender; no palpable organomegaly, no palpable hernias EXT: no obvious derm; limitted left knee fle due to long standing pain; non- tender to palpation; distal pulses intact SKIN: Warm, dry, no rash NEURO: awake, alert, CN intact, strength grossly intact, sensory equal, gait deferred 10/08/16 00:38 RBC 3.63 L MCV 97.2 H MCHC 32.5 RDW 13.3 D MPV 8.2 Neutrophils % 44.9 Lymphocytes % 39.9 Monocytes % 11.3 H Eosinophils % 2.3 Basophils % 1.6 - RADIOLOGY Radiograph Interpretation: 10/08/16 01:33 Tube Buffer: ([id number]) Report Date: 10/08/2016 00:41:00 Report Status: Preliminary Begin of Report Content Referring Physician: Charlie Bashir Patient Name: Alex Camarena THIS IS A PRELIMINARY REPORT FROM [facility]ANIC EXAM: CT brain without contrast IMAGES: [id number] EXAM DATE AND TIME: 2016-10-08 00:41:30.0 REASON FOR EXAM: Slurred speech and falls COMPARISON: CT brain October 04, 2007 FINDINGS: Involutional changes. No hemorrhage. No mass. Tiny lacunar infarct right alvin of indeterminate age. Otherwise no visible infarct at this time. Osseous structures are intact. CBCD WBC 5.7 K/mm3 (4.0-10.0) 10/09/16 06:00 RBC 3.32 M/mm3 (4.00-5.60) L 10/09/16 06:00 Hgb 10.8 GM/dL (11.7-16.9) L 10/09/16 06:00 Hct 32.3 % (35.4-49) L 10/09/16 06:00 MCV 97.3 fl (80-96) H 10/09/16 06:00 MCHC 33.4 g/dl (32.0-35.9) 10/09/16 06:00 RDW 13.8 % (11.9-15.9) 10/09/16 06:00 Plt Count 184 K/MM3 (134-434) 10/09/16 06:00 MPV 8.4 fl (7.5-11.1) 10/09/16 06:00 CMP Sodium 142 mmol/L (136-145) 10/09/16 06:00 Potassium 4.0 mmol/L (3.5-5.1) 10/09/16 06:00 Chloride 106 mmol/L (98-107) 10/09/16 06:00 Carbon Dioxide 28 mmol/L (21-32) 10/09/16 06:00 Anion Gap 8 (8-16) 10/09/16 06:00 BUN 7 mg/dL (7-18) D 10/09/16 06:00 Creatinine 0.7 mg/dL (0.7-1.3) 10/09/16 06:00 Creat Clearance w eGFR > 60 (>60) 10/09/16 06:00 Calcium 8.4 mg/dL (8.5-10.1) L 10/09/16 06:00 Total Bilirubin 0.3 mg/dL (0.2-1.0) 10/09/16 06:00 AST 38 U/L (15-37) H D 10/09/16 06:00 ALT 28 U/L (12-78) D 10/09/16 06:00 Alkaline Phosphatase 62 U/L (45-117) 10/09/16 06:00 Total Protein 5.9 g/dl (6.4-8.2) L D 10/09/16 06:00 Albumin 3.1 g/dl (3.4-5.0) L D 10/09/16 06:00 Medical Decision Making 66 year old male with significant medical hx of pancreatitis s/p pancreatic resection (1983), HTN, MS, cocaine use and ETOH abuse who is presenting to the ED with slurred speech, chest pain, and unsteady gait since yesterday. Yesterday the patient was discharged after a week long incarceration for public urination. The patient states that on his way out he realized that he was stumbling and having difficulty ambulating. The patient does not usually walk with a cane or a walker. Patient was noted to have slurred speech by his daughter and brought to the hospital. He was admitted and consult for Dr. 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 Patient speech disturbance likely related to substances and currently producing speech but will obtain MRI brain. Continue medical optimization, monitor for withdrawal, follw up Dr. Mikie Cha.
[2016-10-09] MEDS: SODIUM CHLORIDE 1,000 ML IV SCH (15:20)
--- NOTE | 2016-10-09 18:54 | PN ---
Physical Exam: SUBJECTIVE: Patient seen and examined. His speech is clear, he says his L sided of chest is paining today, most CP happens when he walks. OBJECTIVE: Vital Signs Period Temp Pulse Resp BP Sys/Ramos Pulse Ox Last 24 Hr 97.7 F-98.7 F 50-60 18-20 103-109/59-66 100 PE Neuro: alert, awake, cn 2-12intact [place]: CTAB CV: s1 s2 rrr no mrg r sided reproducible CP Abd: s nt nd + bs Ext: limited abduction LUE, cannot go above head MSK: L sided neck tenderness Laboratory Results - last 24 hr 10/09/16 10/09/16 10/09/16 06:00 06:00 06:00 WBC 5.7 RBC 3.32 L Hgb 10.8 L Hct 32.3 L MCV 97.3 H MCHC 33.4 RDW 13.8 Plt Count 184 MPV 8.4 Neutrophils % 53.4 Lymphocytes % 31.7 Monocytes % 12.5 H Eosinophils % 1.7 Basophils % 0.7 Sodium 142 Potassium 4.0 Chloride 106 Carbon Dioxide 28 Anion Gap 8 BUN 7 D Creatinine 0.7 Creat Clearance w eGFR > 60 POC Glucometer Random Glucose 97 Calcium 8.4 L Magnesium 1.6 L D Total Bilirubin 0.3 AST 38 H D ALT 28 D Alkaline Phosphatase 62 Creatine Kinase 627 H D Creatine Kinase Index 0.9 CK-MB (CK-2) 6.048 H CK-MB (CK-2) Rel Index Cancelled Total Protein 5.9 L D Albumin 3.1 L D Urine Color Urine Appearance Urine pH Ur Specific [place] Urine Protein Urine Glucose (UA) Urine Ketones Urine Blood Urine Nitrite Urine Bilirubin Urine Urobilinogen Ur Leukocyte Esterase Active Medications Generic Name Dose Route Start Last Admin Trade Name Freq PRN Reason Stop Dose Admin Aspirin 81 mg 10/08/16 10:00 10/09/16 10:42 Asa - PO 81 mg DAILY ALLY Administration Chlordiazepoxide HCl 25 mg 10/08/16 15:17 Librium - PO 10/11/16 15:16 Q4H PRN WITHDRAWAL(CONT SUBST) Chlordiazepoxide HCl 25 mg 10/09/16 17:00 10/09/16 17:45 Librium - PO 10/10/16 11:01 25 mg [id number] ALLY Administration Chlordiazepoxide HCl 15 mg 10/10/16 17:00 Librium - PO 10/11/16 11:01 [id number] ALLY Enoxaparin Sodium 40 mg 10/08/16 22:00 10/09/16 10:42 Lovenox - SQ 40 mg DAILY ALLY Administration Folic Acid 1 mg 10/08/16 12:15 10/09/16 10:42 Folic Acid - PO 1 mg DAILY ALLY Administration Guaifenesin 10 ml 10/08/16 19:57 10/09/16 10:44 Robitussin - PO 10 ml Q4H PRN Administration COUGH Sodium Chloride 1,000 mls @ 125 mls/hr 10/08/16 11:15 10/09/16 15:20 Normal Saline - IV 125 mls/hr ASDIR ALLY Administration Thiamine HCl 100 mg 10/09/16 10:00 10/09/16 10:42 Vitamin B1 - PO 100 mg DAILY ALLY Administration Imagin10/08/2016 CT Head - No evidence of acute intracranial hemorrhage, edema, midline shift, mass effect or skull fracture Assessment: 66 year old smoker with h/o HTN, [place]? (possible cath 6 months ago), pancreatitis s/p pancreatic resection (1983), cocaine use and ETOH abuse admitted with slurred speech, unsteady gait, and non radiating sternal CP. Plan: 1. 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 Chest pain - Likely due to cocaine use - ASA daily - Elevated CK, stop statin - No BB due to cocaine - Need cardiac hx from daughter, ? DAPT 3. ETOH abuse - Librium detox 4. Rhabdo - Continue fluids - Trend CPK 5. Borderline DM II - Diabetic diet, exercise 6. DVT: Lovenox 40mg daily Visit type - Emergency Visit Emergency Visit: Yes ED Registration Date: 10/08/16 Care time: The patient presented to the Emergency Department on the above date and was hospitalized for further evaluation of their emergent condition. - New Patient This patient is new to me today: Yes Date on this admission: 10/09/16 - Critical Care Critical Care patient: No
[2016-10-10] MEDS: chlordiazePOXIDE HCL 25 MG CAPSULE PO SCH ×2 (05:04→10:01)
[2016-10-10 07:16] LABS: ANION GAP 7 (8-16); CALCIUM 8.9 mg/dL (8.5-10.1); CO2 29 mmol/L (21-32); CREATININE 0.8 mg/dL (0.7-1.3); GLUCOSE,RANDOM 94 mg/dL (74-106); MAGNESIUM 1.4 mg/dL (1.8-2.4)
[2016-10-10] MEDS: guaiFENesin 200 MG/10 ML 10 ML UNIT-DOSE CUPS PO PRN (10:00)
[2016-10-10] MEDS: THIAMINE HCL 100 MG TABLET (FP) PO SCH (10:00)
[2016-10-10] MEDS: ENOXAPARIN NA (PORCINE) 40 MG/0.4 ML DISP.SYRIN SQ SCH (10:01)
[2016-10-10] MEDS: ASPIRIN 81 MG CHEWABLE TABLETS PO SCH (10:01)
[2016-10-10] MEDS: FOLIC ACID 1 MG TABLET (FP) PO SCH (10:01)
--- NOTE | 2016-10-10 10:51 | PN ---
Progress Note (short form) - Note Progress Note: s: no sob palps dizzy; still with occasional atypical cp o: Vital Signs Period Temp Pulse Resp BP Sys/Ramos Pulse Ox Last 24 Hr 97.9 F-98.7 F 50-60 18-18 97-117/51-69 100 nad, calm jvd flat, neck supple exp wheezes rrr nl s1, s2 no mrg + bs soft nt nd ext without e/c/c aaox3 no jaundice, diaphoresis Current Medications Generic Name Dose Route Start Last Admin Trade Name Freq PRN Reason Stop Dose Admin Aspirin 81 mg 10/08/16 10:00 10/10/16 10:01 Asa - PO 81 mg DAILY ALLY Administration Chlordiazepoxide HCl 25 mg 10/08/16 15:17 Librium - PO 10/11/16 15:16 Q4H PRN WITHDRAWAL(CONT SUBST) Chlordiazepoxide HCl 25 mg 10/09/16 17:00 10/10/16 10:01 Librium - PO 10/10/16 11:01 25 mg [id number] ALLY Administration Chlordiazepoxide HCl 15 mg 10/10/16 17:00 Librium - PO 10/11/16 11:01 [id number] ALLY Enoxaparin Sodium 40 mg 10/08/16 22:00 10/10/16 10:01 Lovenox - SQ 40 mg DAILY ALLY Administration Folic Acid 1 mg 10/08/16 12:15 10/10/16 10:01 Folic Acid - PO 1 mg DAILY ALLY Administration Guaifenesin 10 ml 10/08/16 19:57 10/10/16 10:00 Robitussin - PO 10 ml Q4H PRN Administration COUGH Sodium Chloride 1,000 mls @ 125 mls/hr 10/08/16 11:15 10/09/16 15:20 Normal Saline - IV 125 mls/hr ASDIR ALLY Administration Thiamine HCl 100 mg 10/09/16 10:00 10/10/16 10:00 Vitamin B1 - PO 100 mg DAILY ALLY Administration CBC, BMP 10/09/16 06:00 10/10/16 06:00 EKG reviewed, sr av delay, poor r wave progression. no acute ischemic changes tele: SR echo 09/2016: mild conc lvh. nl lvef. mild anterior apical HK. 1+ TR. bline ao root dilation CXR: chronic parenchymal/pleural disease in right paratracheal region, no acute pulmonary disease a/p: 66 yo smoker with h/o HTN, [place]? (possible cath 6 months ago), pancreatitis s /p pancreatic resection (1983), cocaine use and ETOH abuse who is presenting to the ED with slurred speech, unsteady gait and who also noted symptoms of cp. CP - elevated CK c/w recent cocaine use, trop negative. - prior cardiac hx unclear-->he reports cardiac cath approx 6 mos ago but does not recall results or if needed pci. - here with atypical cp, intermittently persists so will eval further with mibi tomorrow - With active drug use pt has not been compliant with meds and thus would be a poor candidate for future interventions so would avoid cath unless high risk findings on mibi -other reasons to have had chest discomfort such as recent cocaine use, h/o pancreatitis -echo with distal HK. Cont ASA. Would not start statin given elevated ck, etoh abuse and abnormal lfts. -no bb given cocaine use and sinus kennedi here Abnormal gait - ongoing neuro work up per pmd tobacco/crack cocaine use. - cessation counseling htn: -stable off meds, monitor for now
--- NOTE | 2016-10-10 10:52 | PN ---
Progress Note (short form) - Note Progress Note: Neurology History of Present Illness Patient is a 66 year old male with significant medical hx of pancreatitis s/p pancreatic resection (1983), HTN, [place], cocaine use and ETOH abuse who is presenting to the ED with slurred speech, chest pain, and unsteady gait since yesterday. Yesterday the patient was discharged after a week long incarceration for public urination. The patient states that on his way out he realized that he was stumbling and having difficulty ambulating. The patient does not usually walk with a cane or a walker. Patient was noted to have slurred speech by his daughter and brought to the hospital. He was admitted and consult for Dr. 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 Patient speech disturbance likely related to substances and currently producing speech. MRI brain ordered and completed and did not show infarct. Active Medications Aspirin (Asa -) 81 mg PO DAILY [facility] Last Admin: 10/10/16 10:01 Dose: 81 mg Chlordiazepoxide HCl (Librium -) 25 mg PO Q4H PRN PRN Reason: WITHDRAWAL(CONT SUBST) Stop: 10/11/16 15:16 Chlordiazepoxide HCl (Librium -) 25 mg PO [id number] ALLY Stop: 10/10/16 11:01 Last Admin: 10/10/16 10:01 Dose: 25 mg Chlordiazepoxide HCl (Librium -) 15 mg PO [id number] [facility] Stop: 10/11/16 11:01 Enoxaparin Sodium (Lovenox -) 40 mg SQ DAILY [facility] Last Admin: 10/10/16 10:01 Dose: 40 mg Folic Acid (Folic Acid -) 1 mg PO DAILY [facility] Last Admin: 10/10/16 10:01 Dose: 1 mg Guaifenesin (Robitussin -) 10 ml PO Q4H PRN PRN Reason: COUGH Last Admin: 10/10/16 10:00 Dose: 10 ml Sodium Chloride (Normal Saline -) 1,000 mls @ 125 mls/hr IV ASDIR [facility] Last Admin: 10/09/16 15:20 Dose: 125 mls/hr Thiamine HCl (Vitamin B1 -) 100 mg PO DAILY [facility] Last Admin: 10/10/16 10:00 Dose: 100 mg *Physical Exam Vital Signs Temperature 98.2 F 10/10/16 06:00 Pulse Rate 53 L 10/10/16 06:00 Respiratory Rate 18 10/10/16 06:00 Blood Pressure 103/51 10/10/16 06:00 O2 Sat by Pulse Oximetry (%) 100 10/09/16 21:00 CONSTITUTIONAL: alert, awake; follows commands; + aob; in no apparent distress HEAD: Normocephalic; atraumatic EYES: PERRL; EOM intact; no scleral icterus; conj-pink ENMT: + minimal flattening of the right nasolabial fold; normal oropharynx NECK: Supple; non-tender; no jvd CARD: Normal S1, S2; no murmurs, rubs, or gallops RESP: Normal chest excursion with respiration; breath sounds clear and equal bilaterally; no wheezes, rhonchi, or rales ABD: Soft, non-distended; non-tender; no palpable organomegaly, no palpable hernias EXT: no obvious derm; limitted left knee fle due to long standing pain; non- tender to palpation; distal pulses intact SKIN: Warm, dry, no rash NEURO: awake, alert, CN intact, strength grossly intact, sensory equal, gait deferred CT head and MRI brain reviewed CBCD WBC 5.7 K/mm3 (4.0-10.0) 10/09/16 06:00 RBC 3.32 M/mm3 (4.00-5.60) L 10/09/16 06:00 Hgb 10.8 GM/dL (11.7-16.9) L 10/09/16 06:00 Hct 32.3 % (35.4-49) L 10/09/16 06:00 MCV 97.3 fl (80-96) H 10/09/16 06:00 MCHC 33.4 g/dl (32.0-35.9) 10/09/16 06:00 RDW 13.8 % (11.9-15.9) 10/09/16 06:00 Plt Count 184 K/MM3 (134-434) 10/09/16 06:00 MPV 8.4 fl (7.5-11.1) 10/09/16 06:00 CMP Sodium 142 mmol/L (136-145) 10/10/16 06:00 Potassium 3.9 mmol/L (3.5-5.1) 10/10/16 06:00 Chloride 106 mmol/L (98-107) 10/10/16 06:00 Carbon Dioxide 29 mmol/L (21-32) 10/10/16 06:00 Anion Gap 7 (8-16) L 10/10/16 06:00 BUN 5 mg/dL (7-18) L D 10/10/16 06:00 Creatinine 0.8 mg/dL (0.7-1.3) 10/10/16 06:00 Creat Clearance w eGFR > 60 (>60) 10/09/16 06:00 Calcium 8.9 mg/dL (8.5-10.1) 10/10/16 06:00 Total Bilirubin 0.3 mg/dL (0.2-1.0) 10/09/16 06:00 AST 38 U/L (15-37) H D 10/09/16 06:00 ALT 28 U/L (12-78) D 10/09/16 06:00 Alkaline Phosphatase 62 U/L (45-117) 10/09/16 06:00 Total Protein 5.9 g/dl (6.4-8.2) L D 10/09/16 06:00 Albumin 3.1 g/dl (3.4-5.0) L D 10/09/16 06:00 Medical Decision Making 66 year old male with significant medical hx of pancreatitis s/p pancreatic resection (1983), HTN, [place], cocaine use and ETOH abuse who is presenting to the ED with slurred speech, chest pain, and unsteady gait since yesterday. Yesterday the patient was discharged after a week long incarceration for public urination. The patient states that on his way out he realized that he was stumbling and having difficulty ambulating. The patient does not usually walk with a cane or a walker. Patient was noted to have slurred speech by his daughter and brought to the hospital. He was admitted and consult for Dr. 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 Patient speech disturbance likely related to substances and currently producing speech, MRI brain negative. On ASA and can continue for CVA prevention. Continue medical optimization, monitor for withdrawal, follw up Dr. Mikie Cha. No acute neurologic event, no further recommendations at this time.
[2016-10-10] MEDS ORDERED: MAGNESIUM OXIDE 400 MG TABLET (FP) PO ONE (11:45)
[2016-10-10] MEDS ORDERED: MAGNESIUM SULF 50% (8.12 MEQ/2 ML-1 GM VIAL) IVPB ONE (12:00)
[2016-10-10] MEDS: SODIUM CHLORIDE 1,000 ML IV SCH (12:00)
--- NOTE | 2016-10-10 14:49 | PN ---
Physical Exam: SUBJECTIVE: Patient seen and examined. He says his back hurts, he still cant extend his R arm past shoulder height, the pain shoots to his r neck. CP is intermittent goes from Left side to right. OBJECTIVE: Vital Signs Period Temp Pulse Resp BP Sys/Ramos Pulse Ox Last 24 Hr 97.8 F-98.7 F 50-68 18-18 97-117/51-69 98-100 PE Neuro: alert, awake, cn 2-12intact [place]: L base rhonchi, + wet cough, non productive, CV: s1 s2 rrr no mrg Abd: s nt nd + bs Ext: limited abduction LUE, cannot go above head MSK: L sided neck tenderness Laboratory Results - last 24 hr 10/10/16 10/10/16 06:00 06:00 Sodium 142 Potassium 3.9 Chloride 106 Carbon Dioxide 29 Anion Gap 7 L BUN 5 L D Creatinine 0.8 Random Glucose 94 Calcium 8.9 Magnesium 1.4 L Creatine Kinase 396 H D Creatine Kinase Index 0.9 CK-MB (CK-2) 3.522 CK-MB (CK-2) Rel Index Cancelled Active Medications Generic Name Dose Route Start Last Admin Trade Name Freq PRN Reason Stop Dose Admin Aspirin 81 mg 10/08/16 10:00 10/10/16 10:01 Asa - PO 81 mg DAILY ALLY Administration Chlordiazepoxide HCl 25 mg 10/08/16 15:17 Librium - PO 10/11/16 15:16 Q4H PRN WITHDRAWAL(CONT SUBST) Chlordiazepoxide HCl 15 mg 10/10/16 17:00 Librium - PO 10/11/16 11:01 [id number] ALLY Enoxaparin Sodium 40 mg 10/08/16 22:00 10/10/16 10:01 Lovenox - SQ 40 mg DAILY ALLY Administration Folic Acid 1 mg 10/08/16 12:15 10/10/16 10:01 Folic Acid - PO 1 mg DAILY ALLY Administration Guaifenesin 10 ml 10/08/16 19:57 10/10/16 10:00 Robitussin - PO 10 ml Q4H PRN Administration COUGH Thiamine HCl 100 mg 10/09/16 10:00 10/10/16 10:00 Vitamin B1 - PO 100 mg DAILY ALLY Administration Imagin10/08/2016 CT Head - No evidence of acute intracranial hemorrhage, edema, midline shift, mass effect or skull fracture Assessment: 66 year old smoker with h/o HTN, [place]? (possible cath 6 months ago), pancreatitis s/p pancreatic resection (1983), cocaine use and ETOH abuse admitted with slurred speech, unsteady gait, and non radiating sternal CP. Plan: 1. 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 Atypical chest pain - Stress test tomorrow - ASA daily - Elevated CK, stop statin - No BB due to cocaine - Need cardiac hx from daughter, ? DAPT 3. ETOH abuse - No active withdrawal - Librium detox 4. Rhabdo - Stop fluids, due to congestion - CPK down trended - Will check CXR today 5. Borderline DM II - Diabetic diet, exercise 6. DVT: Lovenox 40mg daily Visit type - Emergency Visit Emergency Visit: Yes ED Registration Date: 10/08/16 Care time: The patient presented to the Emergency Department on the above date and was hospitalized for further evaluation of their emergent condition. - New Patient This patient is new to me today: No - Critical Care Critical Care patient: No
[2016-10-10] MEDS: chlordiazePOXIDE 5 MG CAPSULE PO SCH ×2 (17:23→21:59)
[2016-10-10] MEDS ORDERED: PT OWN MED DRAWER 7, Y5N ONE (22:03)
[2016-10-10] MEDS ORDERED: ACETAMINOPHEN 325 MG TABLET (FP) PO PRN (23:27)
[2016-10-11] MEDS: chlordiazePOXIDE 5 MG CAPSULE PO SCH ×2 (05:01→11:59)
[2016-10-11] MEDS ORDERED: MAGNESIUM SULF 50% (8.12 MEQ/2 ML-1 GM VIAL) IVPB ONE (05:42)
[2016-10-11 08:31] LABS: MAGNESIUM 2.1 mg/dL (1.8-2.4); PHOSPHOROUS 3.5 mg/dL (2.5-4.9)
[2016-10-11] MEDS ORDERED: SODIUM CHLORIDE 500 ML IV STA (08:50)
[2016-10-11 09:48] LABS: BASOPHIL 0.9 % (0-2.0); EOSINOPHIL 0.7 % (0-4.5); MCH 32.4 pg (25.7-33.7); MEAN CELL VOLUME 98.1 fl (80-96); MEAN PLT VOLUME 9.3 fl (7.5-11.1); NEUTROPHILS 55.8 % (42.8-82.8); PLATELET COUNT 193 K/MM3 (134-434); RDW 13.7 % (11.9-15.9); WHITE BLOOD COUNT 7.8 K/mm3 (4.0-10.0)
[2016-10-11] MEDS: ASPIRIN 81 MG CHEWABLE TABLETS PO SCH (09:57)
[2016-10-11] MEDS: FOLIC ACID 1 MG TABLET (FP) PO SCH (09:57)
[2016-10-11] MEDS: ENOXAPARIN NA (PORCINE) 40 MG/0.4 ML DISP.SYRIN SQ SCH (09:57)
[2016-10-11] MEDS: THIAMINE HCL 100 MG TABLET (FP) PO SCH (09:57)
[2016-10-11 10:08] LABS: ANION GAP 8 (8-16); CALCIUM 8.9 mg/dL (8.5-10.1); CO2 28 mmol/L (21-32); CREATININE 0.8 mg/dL (0.7-1.3); GLUCOSE,RANDOM 94 mg/dL (74-106)
--- NOTE | 2016-10-11 10:45 | PN ---
Progress Note, MEDICAL TECH - Note Progress Note: Selected Entries 10/10/16 10/10/16 10/10/16 01:46 06:00 09:00 Breakfast 100% Lunch Supper Temperature 98.5 F 98.2 F 10/10/16 10/10/16 10/10/16 10:00 14:00 18:25 Breakfast Lunch 100% Supper 100% Temperature 97.8 F 98.0 F 97.9 F 10/10/16 10/11/16 10/11/16 22:00 02:00 06:00 Breakfast Lunch Supper Temperature 101.9 F H 99.5 F 98.1 F 10/11/16 10/11/16 08:35 10:24 Breakfast Lunch Supper Temperature 101.4 F H 99.8 F H No dysphagia reported or observed. CXR noted.
[2016-10-11] MEDS ORDERED: ALBUTEROL SO4 2.5/IPRATROPIUM 0.5 INH SOL 3 ML VIAL.NEB. NEB ONE (11:11)
[2016-10-11] MEDS: ALBUTEROL SO4 0.083% IH SOL 2.5 MG/3 ML VIAL.NEB. NEB SCH ×3 (11:55→23:00)
[2016-10-11 12:07] LABS: URINE APPEARANCE CLEAR; URINE BILIRUBIN NEGATIVE (NEGATIVE); URINE BLOOD NEGATIVE (NEGATIVE); URINE COLOR STRAW; URINE GLUCOSE (UA) NEGATIVE (NEGATIVE); URINE KETONE NEGATIVE (NEGATIVE); URINE NITRITE NEGATIVE (NEGATIVE); URINE PROTEIN NEGATIVE (NEGATIVE); URINE UROBILINOGEN NEGATIVE E.U./dl (0.2-1.0)
[2016-10-11 12:09] LABS: URINE LEUK ESTERASE 1+ (NEGATIVE)
[2016-10-11 12:29] LABS: URINE MUCUS RARE; URINE RBC <1 /hpf (0-3); URINE WBC 9 /hpf (3-5)
--- NOTE | 2016-10-11 12:30 | PN ---
Progress Note, Physician Chief Complaint: cp History of Present Illness: shooting pain L pectoral across to Right chest/R axillary line. lasts several seconds, better sometimes if rubs the area no assctd sob or diaph/dizzy + cocaine (last was 10/06) - Current Medication List Current Medications: Active Medications Acetaminophen (Tylenol -) 650 mg PO Q4H PRN PRN Reason: FEVER Albuterol Sulfate (Ventolin 0.083% Nebulizer Soln -) 1 amp NEB Q4H [facility] Last Admin: 10/11/16 11:55 Dose: 1 amp Aspirin (Asa -) 81 mg PO DAILY [facility] Last Admin: 10/11/16 09:57 Dose: 81 mg Chlordiazepoxide HCl (Librium -) 25 mg PO Q4H PRN PRN Reason: WITHDRAWAL(CONT SUBST) Stop: 10/11/16 15:16 Enoxaparin Sodium (Lovenox -) 40 mg SQ DAILY [facility] Last Admin: 10/11/16 09:57 Dose: 40 mg Folic Acid (Folic Acid -) 1 mg PO DAILY [facility] Last Admin: 10/11/16 09:57 Dose: 1 mg Guaifenesin (Robitussin -) 10 ml PO Q4H PRN PRN Reason: COUGH Last Admin: 10/10/16 10:00 Dose: 10 ml Thiamine HCl (Vitamin B1 -) 100 mg PO DAILY [facility] Last Admin: 10/11/16 09:57 Dose: 100 mg - Objective Vital Signs: Vital Signs Temperature 99.8 F H 10/11/16 10:24 Pulse Rate 64 10/11/16 10:24 Respiratory Rate 20 10/11/16 10:24 Blood Pressure 98/57 10/11/16 10:24 O2 Sat by Pulse Oximetry (%) 96 10/11/16 10:00 Constitutional: Yes: No Distress, Calm Eyes: No: Sclera Icterus HENT: No: Nasal Congestion Cardiovascular: Yes: Regular Rate and Rhythm, S1, S2, Other (PMI non diplaced). No: Gallop, Murmur Respiratory: Yes: CTA Bilaterally. No: Accessory Muscle Use, Rales, Wheezes Gastrointestinal: Yes: Normal Bowel Sounds, Soft. No: Tenderness Musculoskeletal: Yes: Other (No kyphosis) Extremities: No: Cold Edema: No Integumentary: No: Jaundice Neurological: Yes: Alert, Oriented (x3) Psychiatric: No: Agitated Labs: CBC, BMP 10/11/16 06:58 10/11/16 06:58 INR, PTT INR 1.19 (0.82-1.09) H 10/08/16 00:30 - ....Imaging EKG: Other (tele: NSR; 24 beat VT run) Assessment/Plan echo 09/2016: mild conc lvh. nl lvef. mild anterior apical HK. 1+ TR. bline ao root dilation CXR: chronic parenchymal/pleural disease in right paratracheal region, no acute pulmonary disease a/p: 66 yo smoker with h/o HTN, [place]? (possible cath 6 months ago), pancreatitis s /p pancreatic resection (1983), cocaine use and ETOH abuse who is presenting to the ED with slurred speech, unsteady gait and who also noted symptoms of cp. CP - elevated CK c/w recent cocaine use, trop negative, no isch ecg findings - prior cardiac hx unclear-->he reports cardiac cath approx 6 mos ago but does not recall results or if needed pci...says was at [facility]--report will be requested today from office - here with atypical cp, intermittently persists so will eval further with mibi (on hold today for fever)--unless cath was recent and can obtain report and was benign, in which case will defer stress testing - With active drug use and pt has not been compliant with meds and thus would be a poor candidate for future interventions so would avoid cath unless high risk findings on mibi (hi risk for premature discontinuation of DAPT/ noncompliance and stent thrombosis if has stent) - should f/u with us in office and if can demonstrated good med compliance, can reconsider cath, depending on mibi findings and clinical course - pt advised that he is potentially hi risk for [place] given also with run of VT on tele, advised that cocaine use increases the risk significantly and he should f/ u with us for med mgmt and observation...advised him there are meds would like to put him on to decr risk of /[place] but cannot do so unless he shows abstinence with cocaine and f/u's with us--he verbalizes understanding -echo with distal HK. Cont ASA. -LDL 48, ? if on statin at home (med list unknown)--defer statin at present time -no bb given cocaine use and sinus kennedi here VTach: -run of 26 beats VT on tele this am (5:16am) -deferring BB given active cocaine use and preserved LVEF -K/Mag optimization (both good today) -if demonstrates cocaine abstinence and f/u with us, would reconsider trial of BB fever: -per hospitalist Abnormal gait - ongoing neuro work up per pmd tobacco/crack cocaine use. - cessation counseling htn: -stable off meds, monitor for now
--- NOTE | 2016-10-11 15:24 | PN ---
Physical Exam: SUBJECTIVE: Patient seen and examined. He said he would get the chills at some point, he feels weak. Events: - Febrile overnight and this AM - Tele: V tach 26 beats OBJECTIVE: Vital Signs Period Temp Pulse Resp BP Sys/Ramos Pulse Ox Last 24 Hr 97.9 F-101.9 F 58-79 20-66 98-148/55-76 96-96 PE Neuro: alert, awake, cn 2-12intact [place]: L base rhonchi, diminished , R clear CV: s1 s2 rrr no mrg Abd: s nt nd + bs Ext: limited abduction LUE, cannot go above head MSK: L sided neck tenderness, weakness CBCD WBC 7.8 K/mm3 (4.0-10.0) D 10/11/16 06:58 RBC 3.83 M/mm3 (4.00-5.60) L 10/11/16 06:58 Hgb 12.4 GM/dL (11.7-16.9) D 10/11/16 06:58 Hct 37.6 % (35.4-49) D 10/11/16 06:58 MCV 98.1 fl (80-96) H 10/11/16 06:58 MCHC 33.0 g/dl (32.0-35.9) 10/11/16 06:58 RDW 13.7 % (11.9-15.9) 10/11/16 06:58 Plt Count 193 K/MM3 (134-434) 10/11/16 06:58 MPV 9.3 fl (7.5-11.1) D 10/11/16 06:58 CMP Sodium 139 mmol/L (136-145) 10/11/16 06:58 Potassium 4.0 mmol/L (3.5-5.1) 10/11/16 06:58 Chloride 103 mmol/L (98-107) 10/11/16 06:58 Carbon Dioxide 28 mmol/L (21-32) 10/11/16 06:58 Anion Gap 8 (8-16) 10/11/16 06:58 BUN 8 mg/dL (7-18) D 10/11/16 06:58 Creatinine 0.8 mg/dL (0.7-1.3) 10/11/16 06:58 Creat Clearance w eGFR > 60 (>60) 10/09/16 06:00 Calcium 8.9 mg/dL (8.5-10.1) 10/11/16 06:58 Total Bilirubin 0.3 mg/dL (0.2-1.0) 10/09/16 06:00 AST 38 U/L (15-37) H D 10/09/16 06:00 ALT 28 U/L (12-78) D 10/09/16 06:00 Alkaline Phosphatase 62 U/L (45-117) 10/09/16 06:00 Total Protein 5.9 g/dl (6.4-8.2) L D 10/09/16 06:00 Albumin 3.1 g/dl (3.4-5.0) L D 10/09/16 06:00 10/11/16 10/11/16 06:58 09:10 Lactic Acid 1.3 Magnesium 2.1 D Active Medications Generic Name Dose Route Start Last Admin Trade Name Freq PRN Reason Stop Dose Admin Acetaminophen 650 mg 10/11/16 10:49 Tylenol - PO Q4H PRN FEVER Albuterol Sulfate 1 amp 10/11/16 11:00 10/11/16 11:55 Ventolin 0.083% Nebulizer Soln - NEB 1 amp Q4H ALLY Administration Aspirin 81 mg 10/08/16 10:00 10/11/16 09:57 Asa - PO 81 mg DAILY ALLY Administration Enoxaparin Sodium 40 mg 10/08/16 22:00 10/11/16 09:57 Lovenox - SQ 40 mg DAILY ALLY Administration Folic Acid 1 mg 10/08/16 12:15 10/11/16 09:57 Folic Acid - PO 1 mg DAILY ALLY Administration Guaifenesin 10 ml 10/08/16 19:57 10/10/16 10:00 Robitussin - PO 10 ml Q4H PRN Administration COUGH Metoprolol Succinate 25 mg 10/11/16 13:15 Toprol Xl - PO DAILY ALLY Thiamine HCl 100 mg 10/09/16 10:00 10/11/16 09:57 Vitamin B1 - PO 100 mg DAILY ALLY Administration Imagin/16/CT Head - No evidence of acute intracranial hemorrhage, edema, midline shift, mass effect or skull fracture ECHO 09/2016: mild conc lvh. nl LVEF mild anterior apical HK. 1+ TR. borderline aortic root dilation Assessment: 66 year old smoker with h/o HTN, [place]? (possible cath 6 months ago), pancreatitis s/p pancreatic resection (1983), cocaine use and ETOH abuse admitted with slurred speech, unsteady gait, and non radiating sternal CP. Plan: 1. Atypical chest pain - V tach this AM - Stress cancelled d/t fever - Per cardiology [place] cath report shows significant LAD myocardial bridge with mid-anterolateral hypokinesis on ventriculogram EF normal 60% - Start metoprolol 25mg daily for risk of VT/VT over bb vasospasm - ASA daily - Elevated CK, hold statin - Appreciate cardiology consult 2. Fever - Lactic acid wnl - CXR negative for infiltrate - Blood, urine cx pending - UA with +1 LE, 9 wbc 3. Hypotension - s/p 500cc bolus, no change, pt hemodynamically stable 4. 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 ETOH abuse - No active withdrawal - Librium detox 6. Rhabdo - Resolving - CPK down trended 7. Borderline DM II - Diabetic diet 8. DVT: Lovenox 40mg daily Visit type - Emergency Visit Emergency Visit: Yes ED Registration Date: 10/08/16 Care time: The patient presented to the Emergency Department on the above date and was hospitalized for further evaluation of their emergent condition. - New Patient This patient is new to me today: No - Critical Care Critical Care patient: No
[2016-10-11] MEDS: METOPROLOL SUCCINATE 25 MG TAB.SR.24H (FP) PO SCH (16:06)
[2016-10-11] MEDS: ACETAMINOPHEN 325 MG TABLET (FP) PO PRN (16:06)
[2016-10-11] MEDS ORDERED: PT OWN MED DRAWER 7, Y5N ONE (17:49)
[2016-10-11] MEDS: guaiFENesin 200 MG/10 ML 10 ML UNIT-DOSE CUPS PO PRN (20:50)
[2016-10-12] MEDS: ALBUTEROL SO4 0.083% IH SOL 2.5 MG/3 ML VIAL.NEB. NEB SCH ×6 (02:30→22:19)
[2016-10-12 08:32] LABS: ANION GAP 7 (8-16); CALCIUM 8.9 mg/dL (8.5-10.1); CO2 30 mmol/L (21-32); CREATININE 0.8 mg/dL (0.7-1.3); GLUCOSE,RANDOM 140 mg/dL (74-106); MAGNESIUM 1.7 mg/dL (1.8-2.4)
[2016-10-12] MEDS: FOLIC ACID 1 MG TABLET (FP) PO SCH (09:10)
[2016-10-12] MEDS: THIAMINE HCL 100 MG TABLET (FP) PO SCH (09:10)
[2016-10-12] MEDS: METOPROLOL SUCCINATE 25 MG TAB.SR.24H (FP) PO SCH (09:10)
[2016-10-12] MEDS: ASPIRIN 81 MG CHEWABLE TABLETS PO SCH (09:11)
[2016-10-12] MEDS: ENOXAPARIN NA (PORCINE) 40 MG/0.4 ML DISP.SYRIN SQ SCH (09:11)
--- NOTE | 2016-10-12 09:45 | PN ---
Progress Note (short form) - Note Progress Note: Chief Complaint: cp History of Present Illness: no complaints today, no cp, palps, dizziness, sob Current Medications Acetaminophen (Tylenol -) 650 mg PO Q4H PRN PRN Reason: FEVER Last Admin: 10/11/16 16:06 Dose: 650 mg Albuterol Sulfate (Ventolin 0.083% Nebulizer Soln -) 1 amp NEB Q4H [facility] Last Admin: 10/12/16 14:20 Dose: Not Given Aspirin (Asa -) 81 mg PO DAILY [facility] Last Admin: 10/12/16 09:11 Dose: 81 mg Enoxaparin Sodium (Lovenox -) 40 mg SQ DAILY [facility] Last Admin: 10/12/16 09:11 Dose: 40 mg Folic Acid (Folic Acid -) 1 mg PO DAILY [facility] Last Admin: 10/12/16 09:10 Dose: 1 mg Guaifenesin (Robitussin -) 10 ml PO Q4H PRN PRN Reason: COUGH Last Admin: 10/11/16 20:50 Dose: 10 ml Levofloxacin (Levaquin 500 Mg Premixed Ivpb -) 100 mls @ 100 mls/hr IVPB DAILY [facility] Last Admin: 10/12/16 12:58 Dose: 100 mls/hr Magnesium Oxide (Mag-Ox -) 400 mg PO BID [facility] Last Admin: 10/12/16 12:58 Dose: 400 mg Metoprolol Succinate (Toprol Xl -) 25 mg PO DAILY [facility] Last Admin: 10/12/16 09:10 Dose: 25 mg Thiamine HCl (Vitamin B1 -) 100 mg PO DAILY [facility] Last Admin: 10/12/16 09:10 Dose: 100 mg Vital Signs - 24 hr 10/11/16 10/12/16 10/12/16 21:00 01:00 09:00 Temperature 98.0 F 100.1 F H Pulse Rate 62 76 Respiratory 18 18 18 Rate Blood Pressure 109/50 106/66 O2 Sat by Pulse 96 96 Oximetry (%) 10/12/16 14:13 Temperature 98.3 F Pulse Rate 60 Respiratory 16 Rate Blood Pressure 91/56 O2 Sat by Pulse Oximetry (%) Intake & Output 10/10/16 10/11/16 10/12/16 10/13/16 07:59 07:59 07:59 07:59 Intake Total 3075 1900 1100 970 Output Total 1750 1650 Balance 6271 376 1099 970 Constitutional: Yes: No Distress, Calm Eyes: No: Sclera Icterus HENT: No: Nasal Congestion Cardiovascular: Yes: Regular Rate and Rhythm, S1, S2, Other (PMI non diplaced). No: Gallop, Murmur Respiratory: Yes: CTA Bilaterally. No: Accessory Muscle Use, Rales, Wheezes Gastrointestinal: Yes: Normal Bowel Sounds, Soft. No: Tenderness Musculoskeletal: Yes: Other (No kyphosis) Extremities: No: Cold Edema: No Integumentary: No: Jaundice Neurological: Yes: Alert, Oriented (x3) Psychiatric: No: Agitated Labs: CBC, BMP 10/11/16 06:58 10/12/16 06:30 Laboratory Tests 10/12/16 06:30 Magnesium 1.7 L - ....Imaging EKG: Other (tele: NSR;no more vt) Assessment/Plan echo 09/2016: mild conc lvh. nl lvef. mild anterior apical HK. 1+ TR. bline ao root dilation CXR: chronic parenchymal/pleural disease in right paratracheal region, no acute pulmonary disease chest CT: scarring/cystic changes RUL. subpleural cystic densities/bulla in [place]ETTE. atelectasis/infiltrates LLL. minimal pl effusion. mod dil of bile ducts with stones. [place] cath report reviewed by cardiology service--04/09. mild luminal irregularities. however significant LAD myocardial bridge with mid- anterolateral hypokinesis on ventriculogram (overall EF normal 60%). a/p: 66 yo smoker with h/o HTN, pancreatitis s/p pancreatic resection (1983), cocaine use and ETOH abuse who is presenting to the ED with slurred speech, unsteady gait and who also noted symptoms of cp. Pre-op clearance ERCP - Patient with recent cath with no significant disease. No prior h/o CVA or CHF. RCRI of 0 but with poor functional capacity. Would estimate his CV risk as intermediate. Given recent episode of VT I would monitor closely and replete electrolytes. No further episodes of VT on low dose metoprolol. EF preserved and no significant coronary disease. VT may have been related to transient LAD ischemia from myocardial bridge. Would minimize vasodilation with anesthesia when possible to avoid excessive LV hypercontractility and decrease the likelihood of inducing transient ischemia related to bridge. CP - elevated CK c/w recent cocaine use, trop negative, no isch ecg findings - prior cardiac hx unclear-->he reports cardiac cath approx 6 mos ago but does not recall results or if needed pci...says was at [facility]--report requested and records received as summarized above. - pt advised that he is potentially hi risk for CA given also with run of VT on tele, advised that cocaine use increases the risk significantly and he should f/ u with us for med mgmt and observation...advised him regarding risk/benefit of beta pat and cocaine use, he verbalizes understanding -echo with distal HK. Cont ASA. -LDL 48, ? if on statin at home (med list unknown)--defer statin at present time VTach/intramyocardial bridge: -run of 26 beats VT on tele this am (5:16am) -K/Mag optimization - while limited clinical trial data exists on med mgmt of LAD myocardial bridge , the standard of care is b-blockers, then CCBs if need be. surgical resection limited to symptomatic pts (angina or VT) despite meds. - given it is very possible his current CP and/or his long run of VT are related to bridging (with anterior wall hypo noted on echo here as well), and given the risks of BB in cocaine are theoretical, with the vast majority of pts tolerating bb well, the pt seems to be at higher risk from VT/CA than for bb- related coronary vasospasm. Started low dose BB (metopr succ 25 qd). Monitor for hypotension or bradycardia - in light of recent cath with no obstructive CAD, nuclear perfusion imaging is very unlikely to add further diagnostic info, or change mgmt. treatment will be sx-based, monitoring cp and ventricular ectopy on tele with BB +/- CCB. fever: -per hospitalist. chest ct images and report reviewed Abnormal gait - ongoing neuro work up per pmd. brain mri results noted, neuro consult report reviewed. tobacco/crack cocaine use. - cessation counseling htn: -stable/running low off meds, monitor now on BB.
[2016-10-12] MEDS ORDERED: POTASSIUM CHLORIDE TABS 20 MEQ TABLET.ER (FP) PO ONE (10:30)
[2016-10-12] MEDS ORDERED: MAGNESIUM SULF 50% (8.12 MEQ/2 ML-1 GM VIAL) IVPB ONE (10:30)
--- NOTE | 2016-10-12 11:20 | PN ---
Physical Exam: SUBJECTIVE: Patient seen and examined. He is oob to chair, complaints are similar. He dose note R sided abdominal pain for ~2 weeks. Events: - No events on tele - Tmax 100.1 OBJECTIVE: Vital Signs Period Temp Pulse Resp BP Sys/Ramos Pulse Ox Last 24 Hr 97.8 F-100.1 F 62-76 18-20 106-128/50-77 96-96 PE Neuro: alert, awake, cn 2-12intact [place]: L base rhonchi, R clear CV: s1 s2 rrr no mrg Abd: R lateral abd pain, soft nd +bs Ext: limited abduction LUE, cannot go above head MSK: weakness Laboratory Results - last 24 hr 10/11/16 10/12/16 11:55 06:30 Sodium 141 Potassium 3.6 Chloride 104 Carbon Dioxide 30 Anion Gap 7 L BUN 9 Creatinine 0.8 Random Glucose 140 H D Calcium 8.9 Magnesium 1.7 L Urine Color Straw Urine Appearance Clear Urine pH 5.0 Ur Specific [place] 1.010 Urine Protein Negative Urine Glucose (UA) Negative Urine Ketones Negative Urine Blood Negative Urine Nitrite Negative Urine Bilirubin Negative Urine Urobilinogen Negative Ur Leukocyte Esterase 1+ H Urine RBC <1 Urine WBC 9 Ur Epithelial Cells Rare Urine Mucus Rare Active Medications Generic Name Dose Route Start Last Admin Trade Name Freq PRN Reason Stop Dose Admin Acetaminophen 650 mg 10/11/16 10:49 10/11/16 16:06 Tylenol - PO 650 mg Q4H PRN Administration FEVER Albuterol Sulfate 1 amp 10/11/16 11:00 10/12/16 10:30 Ventolin 0.083% Nebulizer Soln - NEB 1 amp Q4H [facility] Administration Aspirin 81 mg 10/08/16 10:00 10/12/16 09:11 Asa - PO 81 mg DAILY [facility] Administration Enoxaparin Sodium 40 mg 10/08/16 22:00 10/12/16 09:11 Lovenox - SQ 40 mg DAILY [facility] Administration Folic Acid 1 mg 10/08/16 12:15 10/12/16 09:10 Folic Acid - PO 1 mg DAILY [facility] Administration Guaifenesin 10 ml 10/08/16 19:57 10/11/16 20:50 Robitussin - PO 10 ml Q4H PRN Administration COUGH Levofloxacin 100 mls @ 100 mls/hr 10/12/16 10:30 Levaquin 500 Mg Premixed Ivpb - IVPB DAILY [facility] Metoprolol Succinate 25 mg 10/11/16 13:15 10/12/16 09:10 Toprol Xl - PO 25 mg DAILY [facility] Administration Thiamine HCl 100 mg 10/09/16 10:00 10/12/16 09:10 Vitamin B1 - PO 100 mg DAILY [facility] Administration Imagin/16/CT Head - No evidence of acute intracranial hemorrhage, edema, midline shift, mass effect or skull fracture ECHO 09/2016: mild conc lvh. nl LVEF mild anterior apical HK. 1+ TR. borderline aortic root dilation Assessment: 66 year old smoker with h/o HTN, [place]? (possible cath 6 months ago), pancreatitis s/p pancreatic resection (1983), cocaine use and ETOH abuse admitted with slurred speech, unsteady gait, and non radiating sternal CP. Plan: 1. Fever d/t PNA - Low grade this AM - CT chest reviewed, left base infiltrate noted - Start levaquin 500mg daily - Urine and blood cx negative, lactic acid wnl 2. Choledocholithiasis - s/p cholecystectomy - 10cm stone noted in CBD - LFT's ordered - GI consulted for ?ERCP and addition of flagyl 3. Atypical chest pain - No need for stress test going forward - [place] cath report shows significant LAD myocardial bridge with mid- anterolateral hypokinesis on ventriculogram EF normal 60% - Continue metoprolol 25mg daily for risk of [place]/VT over bb vasospasm - ASA daily - Elevated CK, hold statin - Will start PO mg BID 4. 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 ETOH abuse - No active withdrawal - Librium detox 6. Rhabdo - Improved, off fluids 7. Borderline DM II - Diabetic diet 8. DVT - Lovenox 40mg daily Visit type - Emergency Visit Emergency Visit: Yes ED Registration Date: 10/08/16 Care time: The patient presented to the Emergency Department on the above date and was hospitalized for further evaluation of their emergent condition. - New Patient This patient is new to me today: No - Critical Care Critical Care patient: No
[2016-10-12] MEDS: LEVOFLOXACIN 500 MG IVPB 100 ML IVPB SCH (12:58)
[2016-10-12] MEDS: MAGNESIUM OXIDE 400 MG TABLET (FP) PO SCH ×2 (12:58→21:05)
--- NOTE | 2016-10-12 14:41 | EKG ---
Test Reason : Blood Pressure : / mmHG Vent. Rate : 061 BPM Atrial Rate : 061 BPM P-R Int : 232 ms QRS Dur : 114 ms QT Int : 418 ms P-R-T Axes : 049 060 084 degrees QTc Int : 420 ms SINUS RHYTHM WITH 1ST DEGREE A-V BLOCK OTHERWISE NORMAL ECG WHEN COMPARED WITH ECG OF 08-OCT-2016 00:16, NO SIGNIFICANT CHANGE WAS FOUND Confirmed by ANASTASIA COHEN MD ([id number]) on 10/12/2016 2:40:52 PM Referred By: Confirmed By:ANASTASIA COHEN MD
--- NOTE | 2016-10-12 15:29 | CON.GI ---
Consult Consult Specialty:: GI Referred by:: Hospitalist Reason for Consultation:: Stones in CBD on CT scan of chest - History of Present Illness Chief Complaint: I had pain in my chest History of Present Illness: 66M admitted for evaluation of chest pain / slurred speech and unsteady gait. He recently used intranasal cocaine. Initial blood work revealed elevated CPK and AST c/w component of rhabdomyolysis. He also had episodes of V-Tach. He is being evaluated by cardiology and has been admitted since 10/07. CT scan of chest revealed CBD stones. He has had fevers during admission and is being treated for PNA. he denies abdominal pain and says that he has loose bowel movements after meals since he had a surgery on his pancreas several years ago. he describes having pancreatitis in 1983 "because he was drinking a whole lot of alcohol" that led to the need for surgery on his pancreas and he also says that he had surgery on his stomach at that time as well. - History Source History Provided By: Patient Limitations to Obtaining History: Poor Historian - Past Medical History Cardio/Vascular: Yes: CAD, Other (LAD myocardial bridge) Gastrointestinal: Yes: Pancreatitis - Past Surgical History Additional Surgical History: Pancreatic surgery and ? gastric surgery following an episode of pancreatitis in 1983 - Alcohol/Substance Use Hx Alcohol Use: Yes (4x/week) History of Substance Use: reports: Cocaine - Smoking History Smoking history: Current every day smoker Have you smoked in the past 12 months: Yes Aproximately how many cigarettes per day: 4 - Social History Usual Living Arrangement: Alone ADL: Independent Place of : [facility] History of Recent Travel: No Home Medications - Allergies Allergies/Adverse Reactions: Allergies Allergy/AdvReac Type Severity Reaction Status Date / Time No Known Allergies Allergy Verified 10/07/16 23:29 - Home Medications Home Medications: Ambulatory Orders Unobtainable [Unobtainable] 10/07/16 Family Disease History - Family Disease History Other Family History: No family history of colorectal cancer or other GI malignancy Review of Systems - Review of Systems Constitutional: denies: Chills Cardiovascular: reports: Chest Pain Respiratory: denies: SOB Gastrointestinal: reports: Diarrhea. denies: Abdominal Pain Physical Exam-GI Vital Signs: Vital Signs Temperature 98.3 F 10/12/16 14:13 Pulse Rate 60 10/12/16 14:13 Respiratory Rate 16 10/12/16 14:13 Blood Pressure 91/56 10/12/16 14:13 O2 Sat by Pulse Oximetry (%) 96 10/12/16 09:00 Constitutional: Yes: Calm Eyes: No: Sclera Icterus Cardiovascular: Yes: Regular Rate and Rhythm, Murmur Respiratory: Yes: CTA Bilaterally Gastrointestinal Inspection: Yes: Scars (+ long surgical scar spanning from LUQ to RUQ). No: Distention ...Palpate: No: Guarding, Hepatomegaly, Splenomegaly, Tenderness Edema: No Neurological: Yes: Alert, Oriented Labs: CBC, BMP 10/11/16 06:58 10/12/16 06:30 INR, PTT INR 1.19 (0.82-1.09) H 10/08/16 00:30 Hepatic Panel Total Bilirubin 0.3 mg/dL (0.2-1.0) 10/09/16 06:00 AST 38 U/L (15-37) H D 10/09/16 06:00 ALT 28 U/L (12-78) D 10/09/16 06:00 Alkaline Phosphatase 62 U/L (45-117) 10/09/16 06:00 Albumin 3.1 g/dl (3.4-5.0) L D 10/09/16 06:00 Imaging - Results Cat Scan: Report Reviewed, Image Reviewed Problem List - Problems (1) Choledocholithiasis Assessment/Plan: Currently asymptomatic. I did discuss with Mr. Camarena that retained stones in the CBD could lead to life threatening illnesses such as bile duct infection / cholangitis and pancreatitis. I explained that for further evaluation, once cleared by cardiology, ERCP could be performed for evaluated the bile duct in an attemp to remove the stones. We discussed potential risks of the procedure like but not limited to bleeding, perforation requiring surgery to repair, infection, sedation, pancreatitis all of which could be potentially life threatening. He did not consent for the procedure but said that he would need to think about it. i asked if he wanted me to discuss trhings with his daughter and he said no. I did suggest that he discuss things with his family. I discussed Mr. Camarena' decision with Hospitalist Fernando as well. I advised alcohol cessation as well as alcohol cessation Code(s): K80.50 - CALCULUS OF BILE DUCT W/O CHOLANGITIS OR CHOLECYST W/O OBST
[2016-10-13] MEDS: ALBUTEROL SO4 0.083% IH SOL 2.5 MG/3 ML VIAL.NEB. NEB SCH ×6 (03:10→22:37)
[2016-10-13] MEDS: ACETAMINOPHEN 325 MG TABLET (FP) PO PRN ×2 (04:53→21:21)
[2016-10-13] MEDS ORDERED: MAGNESIUM SULF 50% (8.12 MEQ/2 ML-1 GM VIAL) IVPB ONE (10:45)
--- NOTE | 2016-10-13 10:47 | PN ---
Progress Note (short form) - Note Progress Note: s: no sob palps dizzy; c/o body aches (including atypical cp worse with movements), ruq pain o: Vital Signs Period Temp Pulse Resp BP Sys/Ramos Pulse Ox Last 24 Hr 98.3 F-100.6 F 58-67 16-18 91-126/56-74 95 nad, calm jvd flat, neck supple cta bl nl eff rrr nl s1, s2 no mrg + bs soft nd, mild right abd pain ext without e/c/c alert awake appropriate no jaundice, diaphoresis Current Medications Generic Name Dose Route Start Last Admin Trade Name Freq PRN Reason Stop Dose Admin Acetaminophen 650 mg 10/11/16 10:49 10/13/16 04:53 Tylenol - PO 650 mg Q4H PRN Administration FEVER Albuterol Sulfate 1 amp 10/11/16 11:00 10/13/16 07:19 Ventolin 0.083% Nebulizer Soln - NEB 1 amp Q4H ALLY Administration Aspirin 81 mg 10/08/16 10:00 10/12/16 09:11 Asa - PO 81 mg DAILY [facility] Administration Enoxaparin Sodium 40 mg 10/08/16 22:00 10/12/16 09:11 Lovenox - SQ 40 mg DAILY [facility] Administration Folic Acid 1 mg 10/08/16 12:15 10/12/16 09:10 Folic Acid - PO 1 mg DAILY [facility] Administration Guaifenesin 10 ml 10/08/16 19:57 10/11/16 20:50 Robitussin - PO 10 ml Q4H PRN Administration COUGH Levofloxacin 100 mls @ 100 mls/hr 10/12/16 10:30 10/12/16 12:58 Levaquin 500 Mg Premixed Ivpb - IVPB 100 mls/hr DAILY [facility] Administration Magnesium Oxide 400 mg 10/12/16 12:00 10/12/16 21:05 Mag-Ox - PO 400 mg BID [facility] Administration Magnesium Sulfate 2 gm 10/13/16 10:45 Magnesium Sulfate IVPB 10/13/16 10:46 ONCE ONE Metoprolol Succinate 25 mg 10/11/16 13:15 10/12/16 09:10 Toprol Xl - PO 25 mg DAILY [facility] Administration Thiamine HCl 100 mg 10/09/16 10:00 10/12/16 09:10 Vitamin B1 - PO 100 mg DAILY [facility] Administration CBC, BMP 10/11/16 06:58 10/12/16 06:30 EKG reviewed, sr av delay, poor r wave progression. no acute ischemic changes tele: SR echo 09/2016: mild conc lvh. nl lvef. mild anterior apical HK. 1+ TR. bline ao root dilation CXR: chronic parenchymal/pleural disease in right paratracheal region, no acute pulmonary disease [facility] cath report reviewed by cardiology service--04/09. mild luminal irregularities. however significant LAD myocardial bridge with mid- anterolateral hypokinesis on ventriculogram (overall EF normal 60%). a/p: 66 yo smoker with h/o HTN, pancreatitis s/p pancreatic resection (1983), cocaine use and ETOH abuse who is presenting to the ED with slurred speech, unsteady gait and who also noted symptoms of cp. Pre-op clearance ERCP - Patient with recent cath with no significant disease. No prior h/o CVA or CHF. RCRI of 0 but with poor functional capacity. Would estimate his CV risk as intermediate. Given recent episode of VT I would monitor closely and replete electrolytes. No further episodes of VT on low dose metoprolol. EF preserved and no significant coronary disease. VT may have been related to transient LAD ischemia from myocardial bridge. Would minimize vasodilation with anesthesia when possible to avoid excessive LV hypercontractility and decrease the likelihood of inducing transient ischemia related to bridge. CP - elevated CK c/w recent cocaine use, trop negative, no isch ecg findings - prior cardiac hx unclear-->he reports cardiac cath approx 6 mos ago but does not recall results or if needed pci...says was at [facility]--report requested and records received as summarized above. - pt advised that he is potentially hi risk for OK given also with run of VT on tele, advised that cocaine use increases the risk significantly and he should f/ u with us for med mgmt and observation...advised him regarding risk/benefit of beta pat and cocaine use, he verbalizes understanding -echo with distal HK. Cont ASA. -LDL 48, ? if on statin at home (med list unknown)--defer statin at present time VTach/intramyocardial bridge: -run of 26 beats VT on tele during this admit -K/Mag optimization - while limited clinical trial data exists on med mgmt of LAD myocardial bridge , the standard of care is b-blockers, then CCBs if need be. surgical resection limited to symptomatic pts (angina or VT) despite meds. - given it is very possible his current CP and/or his long run of VT are related to bridging (with anterior wall hypo noted on echo here as well), and given the risks of BB in cocaine are theoretical, with the vast majority of pts tolerating bb well, the pt seems to be at higher risk from VT/OK than for bb- related coronary vasospasm. Started low dose BB (metopr succ 25 qd) - in light of recent cath with no obstructive CAD, nuclear perfusion imaging is very unlikely to add further diagnostic info, or change mgmt. treatment will be sx-based, monitoring cp and ventricular ectopy on tele with BB +/- CCB. fever: -per hospitalist. chest ct images and report reviewed Abnormal gait - ongoing neuro work up per pmd. brain mri results noted, neuro consult report reviewed. tobacco/crack cocaine use. - cessation counseling htn: -stable, monitor now on BB.
[2016-10-13] MEDS: FOLIC ACID 1 MG TABLET (FP) PO SCH (10:59)
[2016-10-13] MEDS: MAGNESIUM OXIDE 400 MG TABLET (FP) PO SCH ×2 (10:59→21:21)
[2016-10-13] MEDS: ASPIRIN 81 MG CHEWABLE TABLETS PO SCH (10:59)
[2016-10-13] MEDS: LEVOFLOXACIN 500 MG IVPB 100 ML IVPB SCH (10:59)
[2016-10-13] MEDS: ENOXAPARIN NA (PORCINE) 40 MG/0.4 ML DISP.SYRIN SQ SCH (11:00)
[2016-10-13] MEDS: THIAMINE HCL 100 MG TABLET (FP) PO SCH (11:00)
[2016-10-13] MEDS: METOPROLOL SUCCINATE 25 MG TAB.SR.24H (FP) PO SCH (11:00)
--- NOTE | 2016-10-13 15:18 | PN ---
Physical Exam: SUBJECTIVE: Patient seen and examined. His CP is intermittent, however the pain seems to refer from his R side of abdomen. He appears more alert OBJECTIVE: Vital Signs Period Temp Pulse Resp BP Sys/Ramos Pulse Ox Last 24 Hr 98.7 F-100.6 F 58-67 16-18 105-126/62-74 95 PE Neuro: alert, awake, cn 2-12intact [place]: L base improving- scattered crackles, R clear CV: s1 s2 rrr no mrg Abd: R lateral abd pain, soft nd +bs Ext: limited abduction LUE, cannot go above head Laboratory Results - last 24 hr 10/13/16 05:35 Magnesium 1.6 L Active Medications Generic Name Dose Route Start Last Admin Trade Name Freq PRN Reason Stop Dose Admin Acetaminophen 650 mg 10/11/16 10:49 10/13/16 04:53 Tylenol - PO 650 mg Q4H PRN Administration FEVER Albuterol Sulfate 1 amp 10/11/16 11:00 10/13/16 07:19 Ventolin 0.083% Nebulizer Soln - NEB 1 amp Q4H ALLY Administration Aspirin 81 mg 10/08/16 10:00 10/13/16 10:59 Asa - PO 81 mg DAILY ALLY Administration Enoxaparin Sodium 40 mg 10/08/16 22:00 10/13/16 11:00 Lovenox - SQ 40 mg DAILY [facility]Y Administration Folic Acid 1 mg 10/08/16 12:15 10/13/16 10:59 Folic Acid - PO 1 mg DAILY [facility]Y Administration Guaifenesin 10 ml 10/08/16 19:57 10/11/16 20:50 Robitussin - PO 10 ml Q4H PRN Administration COUGH Levofloxacin 100 mls @ 100 mls/hr 10/12/16 10:30 10/13/16 10:59 Levaquin 500 Mg Premixed Ivpb - IVPB 100 mls/hr DAILY [facility]Y Administration Magnesium Oxide 400 mg 10/12/16 12:00 10/13/16 10:59 Mag-Ox - PO 400 mg BID ALLY Administration Metoprolol Succinate 25 mg 10/11/16 13:15 10/13/16 11:00 Toprol Xl - PO 25 mg DAILY ALLY Administration Thiamine HCl 100 mg 10/09/16 10:00 10/13/16 11:00 Vitamin B1 - PO 100 mg DAILY ALLY Administration Imaging: CT Head 10/08: Pontine infarct of indeterminate age, no acute intracranial hemorrhage, edema, midline shift, mass effect or skull fracture ECHO 09/2016: mild conc lvh. nl LVEF mild anterior apical HK. 1+ TR. borderline aortic root dilation CT Chest: Left base infiltrate noted, 10cm stone noted in CBD MRI brain: Negative Assessment: 66 year old smoker with h/o HTN, [place]? (possible cath 6 months ago), pancreatitis s/p pancreatic resection (1983), cocaine use and ETOH abuse admitted with slurred speech, unsteady gait, and non radiating sternal CP. Plan: 1. PNA - Levaquin 500mg daily (day 2) 2. Choledocholithiasis - For MRCP today - ERCP tentatively scheduled for Tuesday - Cardiology clearance deems pt an intermediate CV risk with recs to minimize vasodilation with anesthesia when possible to avoid excessive LV hypercontractility and decrease the likelihood of inducing transient ischemia related to bridge - D/w above with GI 3. Atypical chest pain - [place] cath report shows significant LAD myocardial bridge with mid- anterolateral hypokinesis on ventriculogram EF normal 60% - Continue metoprolol 25mg daily for risk of [place]/VT over bb vasospasm - ASA daily - Elevated CK, hold statin 4. Chronic hypomagnesemia - Likely d/t long ETOH abuse hx - Mg oxide 400mg BID - 2mg mg x1 IV 5. r/o CVA/slurred speech,unstable gait - At baseline - Likely due to intoxication 6. ETOH abuse - No active withdrawal - Librium detox 7. Rhabdo - Improved, off fluids - Check CPK for statin restart 8. Borderline DM II - Diabetic diet 9. DVT - Lovenox 40mg daily Visit type - Emergency Visit Emergency Visit: Yes ED Registration Date: 10/08/16 Care time: The patient presented to the Emergency Department on the above date and was hospitalized for further evaluation of their emergent condition. - New Patient This patient is new to me today: No - Critical Care Critical Care patient: No
[2016-10-13] MEDS ORDERED: PT OWN MED DRAWER 7, Y5N ONE (18:20)
[2016-10-14] MEDS: ALBUTEROL SO4 0.083% IH SOL 2.5 MG/3 ML VIAL.NEB. NEB SCH ×6 (03:10→22:53)
[2016-10-14 07:58] LABS: MAGNESIUM 1.8 mg/dL (1.8-2.4)
[2016-10-14 08:02] LABS: PHOSPHOROUS 4.7 mg/dL (2.5-4.9)
[2016-10-14] MEDS: ASPIRIN 81 MG CHEWABLE TABLETS PO SCH (09:43)
[2016-10-14] MEDS: FOLIC ACID 1 MG TABLET (FP) PO SCH (09:43)
[2016-10-14] MEDS: THIAMINE HCL 100 MG TABLET (FP) PO SCH (09:43)
[2016-10-14] MEDS: METOPROLOL SUCCINATE 25 MG TAB.SR.24H (FP) PO SCH (09:43)
[2016-10-14] MEDS: MAGNESIUM OXIDE 400 MG TABLET (FP) PO SCH ×2 (09:43→21:54)
[2016-10-14] MEDS: ENOXAPARIN NA (PORCINE) 40 MG/0.4 ML DISP.SYRIN SQ SCH (09:44)
[2016-10-14] MEDS: LEVOFLOXACIN 500 MG IVPB 100 ML IVPB SCH (09:44)
--- NOTE | 2016-10-14 10:15 | PN ---
Progress Note (short form) - Note Progress Note: s: no sob palps dizzy; c/o body aches (including atypical cp worse with movements), ruq pain o: Vital Signs Period Temp Pulse Resp BP Sys/Ramos Pulse Ox Last 24 Hr 98.0 F-99.5 F 59-65 16-18 100-118/59-67 100 nad, calm jvd flat, neck supple cta bl nl eff rrr nl s1, s2 no mrg + bs soft nd, mild right abd pain ext without e/c/c alert awake appropriate no jaundice, diaphoresis Current Medications Generic Name Dose Route Start Last Admin Trade Name Freq PRN Reason Stop Dose Admin Acetaminophen 650 mg 10/11/16 10:49 10/13/16 21:21 Tylenol - PO 650 mg Q4H PRN Administration FEVER Albuterol Sulfate 1 amp 10/11/16 11:00 10/14/16 07:09 Ventolin 0.083% Nebulizer Soln - NEB 1 amp Q4H ALLY Administration Aspirin 81 mg 10/08/16 10:00 10/14/16 09:43 Asa - PO 81 mg DAILY ALLY Administration Enoxaparin Sodium 40 mg 10/08/16 22:00 10/14/16 09:44 Lovenox - SQ 40 mg DAILY ALLY Administration Folic Acid 1 mg 10/08/16 12:15 10/14/16 09:43 Folic Acid - PO 1 mg DAILY ALLY Administration Guaifenesin 10 ml 10/08/16 19:57 10/11/16 20:50 Robitussin - PO 10 ml Q4H PRN Administration COUGH Levofloxacin 100 mls @ 100 mls/hr 10/12/16 10:30 10/14/16 09:44 Levaquin 500 Mg Premixed Ivpb - IVPB 100 mls/hr DAILY ALLY Administration Magnesium Oxide 400 mg 10/12/16 12:00 10/14/16 09:43 Mag-Ox - PO 400 mg BID ALLY Administration Metoprolol Succinate 25 mg 10/11/16 13:15 10/14/16 09:43 Toprol Xl - PO 25 mg DAILY ALLY Administration Thiamine HCl 100 mg 10/09/16 10:00 10/14/16 09:43 Vitamin B1 - PO 100 mg DAILY ALLY Administration CBC, BMP 10/11/16 06:58 10/12/16 06:30 EKG reviewed, sr av delay, poor r wave progression. no acute ischemic changes tele: SR echo 09/2016: mild conc lvh. nl lvef. mild anterior apical HK. 1+ TR. bline ao root dilation CXR: chronic parenchymal/pleural disease in right paratracheal region, no acute pulmonary disease [place] cath report reviewed by cardiology service--04/09. mild luminal irregularities. however significant LAD myocardial bridge with mid- anterolateral hypokinesis on ventriculogram (overall EF normal 60%). a/p: 66 yo smoker with h/o HTN, pancreatitis s/p pancreatic resection (1983), cocaine use and ETOH abuse who is presenting to the ED with slurred speech, unsteady gait and who also noted symptoms of cp. Pre-op clearance ERCP - Patient with recent cath with no significant disease. No prior h/o CVA or CHF. RCRI of 0 but with poor functional capacity. Would estimate his CV risk as intermediate. Given recent episode of VT I would monitor closely and replete electrolytes. No further episodes of VT on low dose metoprolol. EF preserved and no significant coronary disease. VT may have been related to transient LAD ischemia from myocardial bridge. Would minimize vasodilation with anesthesia when possible to avoid excessive LV hypercontractility and decrease the likelihood of inducing transient ischemia related to bridge. CP - elevated CK c/w recent cocaine use, trop negative, no isch ecg findings - recent cath showing myocardial bridging, no sig cad - pt advised that he is potentially hi risk for DE given also with run of VT on tele, advised that cocaine use increases the risk significantly and he should f/ u with us for med mgmt and observation...advised him regarding risk/benefit of beta pat and cocaine use, he verbalizes understanding -echo with distal HK. Cont ASA. -LDL 48, ? if on statin at home (med list unknown)--defer statin at present time -cont bb for myocardial bridging, current cp does not seem cardiac VTach/intramyocardial bridge: -run of 26 beats VT on tele during this admit -K/Mag optimization - while limited clinical trial data exists on med mgmt of LAD myocardial bridge , the standard of care is b-blockers, then CCBs if need be. surgical resection limited to symptomatic pts (angina or VT) despite meds. - given it is very possible his current CP and/or his long run of VT are related to bridging (with anterior wall hypo noted on echo here as well), and given the risks of BB in cocaine are theoretical, with the vast majority of pts tolerating bb well, the pt seems to be at higher risk from VT/DE than for bb- related coronary vasospasm. Started low dose BB (metopr succ 25 qd), no further vt on tele and current cp does not seem cardiac Abnormal gait - ongoing neuro work up per pmd. brain mri results noted, neuro consult report reviewed. tobacco/crack cocaine use. - cessation counseling htn: -stable, monitor now on BB.
--- NOTE | 2016-10-14 13:44 | PN ---
Progress Note (short form) - Note Progress Note: Patient sitting up eating, no distress. MRCP faile to reveal choledocholithiasis. He denies any abdominal pain. It did reveal a pancreas with multiple calcifications within the pancreatic duct. He has chronic calcific pancreatitis secondary to his prior and continued alcohol use At this point deferring ERCP at this time Pancreatic enzyme supplementation and patient advised that he needs to completely refrain from alcohol consumption He could be referred for an opinion regarding the pancreatic stones at [facility] where they have dedicated pancreaticobiliary surgeons and endoscopists that more readily deal with the pancreatic duct/ Problem List - Problems (1) Choledocholithiasis Code(s): K80.50 - CALCULUS OF BILE DUCT W/O CHOLANGITIS OR CHOLECYST W/O OBST
--- NOTE | 2016-10-14 14:02 | PN ---
Physical Exam: SUBJECTIVE: Patient seen and examined at bedside. No complaints. OBJECTIVE: Vital Signs Period Temp Pulse Resp BP Sys/Ramos Pulse Ox Last 24 Hr 98.0 F-99.5 F 59-67 16-18 100-118/59-67 98-100 GENERAL: The patient is awake, alert, and fully oriented, in no acute distress. HEAD: Normal with no signs of trauma. EYES: PERRL, extraocular movements intact, sclera anicteric, conjunctiva clear. No ptosis. LUNGS: Breath sounds equal, clear to auscultation bilaterally, no wheezes, no crackles, no accessory muscle use. HEART: Regular rate and rhythm, S1, S2 without murmur, rub or gallop. ABDOMEN: Soft, nontender, nondistended, normoactive bowel sounds, no guarding, no rebound EXTREMITIES: 2+ pulses, warm, well-perfused, no edema. NEUROLOGICAL: Cranial nerves II through XII grossly intact. Normal speech, gait not observed. CBCD WBC 7.8 K/mm3 (4.0-10.0) D 10/11/16 06:58 RBC 3.83 M/mm3 (4.00-5.60) L 10/11/16 06:58 Hgb 12.4 GM/dL (11.7-16.9) D 10/11/16 06:58 Hct 37.6 % (35.4-49) D 10/11/16 06:58 MCV 98.1 fl (80-96) H 10/11/16 06:58 MCHC 33.0 g/dl (32.0-35.9) 10/11/16 06:58 RDW 13.7 % (11.9-15.9) 10/11/16 06:58 Plt Count 193 K/MM3 (134-434) 10/11/16 06:58 MPV 9.3 fl (7.5-11.1) D 10/11/16 06:58 CMP Sodium 141 mmol/L (136-145) 10/12/16 06:30 Potassium 3.6 mmol/L (3.5-5.1) 10/12/16 06:30 Chloride 104 mmol/L (98-107) 10/12/16 06:30 Carbon Dioxide 30 mmol/L (21-32) 10/12/16 06:30 Anion Gap 7 (8-16) L 10/12/16 06:30 BUN 9 mg/dL (7-18) 10/12/16 06:30 Creatinine 0.8 mg/dL (0.7-1.3) 10/12/16 06:30 Creat Clearance w eGFR > 60 (>60) 10/09/16 06:00 Calcium 8.9 mg/dL (8.5-10.1) 10/12/16 06:30 Total Bilirubin 0.3 mg/dL (0.2-1.0) 10/09/16 06:00 AST 38 U/L (15-37) H D 10/09/16 06:00 ALT 28 U/L (12-78) D 10/09/16 06:00 Alkaline Phosphatase 62 U/L (45-117) 10/09/16 06:00 Total Protein 5.9 g/dl (6.4-8.2) L D 10/09/16 06:00 Albumin 3.1 g/dl (3.4-5.0) L D 10/09/16 06:00 Laboratory Results - last 24 hr 10/14/16 06:15 Phosphorus 4.7 D Magnesium 1.8 Creatine Kinase 130 Active Medications Generic Name Dose Route Start Last Admin Trade Name Freq PRN Reason Stop Dose Admin Acetaminophen 650 mg 10/11/16 10:49 10/13/16 21:21 Tylenol - PO 650 mg Q4H PRN Administration FEVER Albuterol Sulfate 1 amp 10/11/16 11:00 10/14/16 11:00 Ventolin 0.083% Nebulizer Soln - NEB 1 amp Q4H ALLY Administration Aspirin 81 mg 10/08/16 10:00 10/14/16 09:43 Asa - PO 81 mg DAILY ALLY Administration Enoxaparin Sodium 40 mg 10/08/16 22:00 10/14/16 09:44 Lovenox - SQ 40 mg DAILY ALLY Administration Folic Acid 1 mg 10/08/16 12:15 10/14/16 09:43 Folic Acid - PO 1 mg DAILY ALLY Administration Guaifenesin 10 ml 10/08/16 19:57 10/11/16 20:50 Robitussin - PO 10 ml Q4H PRN Administration COUGH Levofloxacin 100 mls @ 100 mls/hr 10/12/16 10:30 10/14/16 09:44 Levaquin 500 Mg Premixed Ivpb - IVPB 100 mls/hr DAILY ALLY Administration Magnesium Oxide 400 mg 10/12/16 12:00 10/14/16 09:43 Mag-Ox - PO 400 mg BID ALLY Administration Metoprolol Succinate 25 mg 10/11/16 13:15 10/14/16 09:43 Toprol Xl - PO 25 mg DAILY ALLY Administration Thiamine HCl 100 mg 10/09/16 10:00 10/14/16 09:43 Vitamin B1 - PO 100 mg DAILY ALLY Administration Imagin/16 CT Head: no acute process 10/09 MRI brain: no acute process 10/08 Echo: mild cLVH, normal LV, mild apical anterior wall hypokinesis; RV normal; trace MR, mild TR 10/11 CT chest: pneumonic infiltrate left base, minimal b/l pleural effusions; moderate dilitation of the central intrahepatic bile ducts with stones in CBD 10/12 MRCP: no evidence of choledocholilithiasis; no evidence of dilitation of the common hepatic, common bile duct or intrahepatic biliary radicles; diffuse dilitation of the pancreatic duct from head to tail with multiple stones in the dilated duct ASSESSMENT & PLAN 66 year-old male with a significant PMH of HTN, questionable CAD, chronic pancreatitis s/p pancreatic resection (1983), cocaine and ETOH abuse. Admitted with symptoms of chest pain and possible CVA. Fund to have pneumonia, patient recently released from [facility]. Chest pain LAD myocardial bridging --recent cath at [facility] showed myocardial bridging and he has had runs of VT on telemetry --per cardiology, continue beta pat nothwithstanding recent cocaine use since patient at higher relative risk from VT/CO than bb-related coronary vasospasm; patient agrees with plan --continue ASA, defer statin due to elevated CPK Healthcare associated pneumonia --recently discharged from [facility], needs to be treated as HCAP --low-grade fevers --continue levaquin; start Zosyn, Vanco --ID consult requested Chronic calcific pancreatitis Choledocholithiasis ruled out --MRCP findings as above --per GI, no indication for ERCP at this time --start pancreatic enzyme supplementation --outpatient followup with pancreaticobiliary specialist Chronic hypomagnesemia --increase to 600mg PO BID --Mg 2g IV x 1 today Slurred speech Unsteady gait --symptoms resolved --CT and MRI imaging no acute process ETOH abuse --librium taper complete --stable Rhabdomyolysis --check CPK in am NIDDM --diet controlled F/E/N Fluids: PO intake adequate Electrolytes: replete as indicated Nutrition: diabetic diet Physical therapy daily DVT prophylaxis: lovenox Dispo: continues to require inpatient care. Full Code. Visit type - Emergency Visit Emergency Visit: Yes ED Registration Date: 10/08/16 Care time: The patient presented to the Emergency Department on the above date and was hospitalized for further evaluation of their emergent condition. - New Patient This patient is new to me today: Yes Date on this admission: 10/14/16 - Critical Care Critical Care patient: No
[2016-10-14] MEDS ORDERED: PT OWN MED DRAWER 7, Y5N ONE ×3 (15:22→16:58)
[2016-10-14] MEDS ORDERED: VANCOMYCIN 1,250 MG in DEXTROSE 5%-WATER - 250 ML IVPB ONE (16:18)
[2016-10-14] MEDS ORDERED: MAGNESIUM SULF 50% (8.12 MEQ/2 ML-1 GM VIAL) IVPB ONE (16:33)
[2016-10-14] MEDS: LIPASE/PROTEASE/AMYLASE 6,000 UNIT CAPSULE PO SCH (16:43)
[2016-10-14] MEDS: PIPERACILLIN/TAZOB 3.375 GM 50 ML IVPB SCH (17:37)
[2016-10-14] MEDS: ACETAMINOPHEN 325 MG TABLET (FP) PO PRN (21:54)
[2016-10-15] MEDS: PIPERACILLIN/TAZOB 3.375 GM 50 ML IVPB SCH (01:51)
[2016-10-15] MEDS: ALBUTEROL SO4 0.083% IH SOL 2.5 MG/3 ML VIAL.NEB. NEB SCH ×4 (03:00→14:00)
[2016-10-15 08:32] LABS: BASOPHIL 0.9 % (0-2.0); EOSINOPHIL 2.2 % (0-4.5); MCH 32.4 pg (25.7-33.7); MCHC 33.3 g/dl (32.0-35.9); MEAN CELL VOLUME 97.3 fl (80-96); MEAN PLT VOLUME 8.3 fl (7.5-11.1); NEUTROPHILS 57.2 % (42.8-82.8); PLATELET COUNT 257 K/MM3 (134-434); RDW 13.5 % (11.9-15.9); WHITE BLOOD COUNT 6.3 K/mm3 (4.0-10.0)
[2016-10-15] MEDS: LIPASE/PROTEASE/AMYLASE 6,000 UNIT CAPSULE PO SCH ×3 (09:00→16:56)
[2016-10-15 09:11] LABS: ALBUMIN 3.7 g/dl (3.4-5.0); ALK PHOS 73 U/L (45-117); ANION GAP 11 (8-16); BILIRUBIN,TOTAL 0.3 mg/dL (0.2-1.0); CO2 29 mmol/L (21-32); CREATININE 0.9 mg/dL (0.7-1.3); GLUCOSE,RANDOM 98 mg/dL (74-106); MAGNESIUM 2.1 mg/dL (1.8-2.4); SGOT/AST 39 U/L (15-37); SGPT/ALT 39 U/L (12-78); TOT PROT 7.8 g/dl (6.4-8.2)
[2016-10-15] MEDS ORDERED: PIPERACILLIN/TAZOB 3.375 GM 50 ML IVPB SCH (10:00)
--- NOTE | 2016-10-15 10:40 | EKG ---
Test Reason : Blood Pressure : / mmHG Vent. Rate : 067 BPM Atrial Rate : 067 BPM P-R Int : 218 ms QRS Dur : 120 ms QT Int : 422 ms P-R-T Axes : 058 076 085 degrees QTc Int : 445 ms SINUS RHYTHM WITH 1ST DEGREE A-V BLOCK SEPTAL INFARCT , AGE UNDETERMINED ABNORMAL ECG WHEN COMPARED WITH ECG OF 28-FEB-2008 13:30, SEPTAL INFARCT IS NOW PRESENT Confirmed by RANJITH BEACH, APOLINAR ([id number]) on 10/15/2016 10:40:05 AM Referred By: Confirmed By:APOLINAR KASPER MD
--- NOTE | 2016-10-15 10:50 | PN ---
Progress Note (short form) - Note Progress Note: s: no sob palps dizzy; c/o body aches (including atypical cp worse with movements), ruq pain o: Vital Signs Period Temp Pulse Resp BP Sys/Ramos Pulse Ox Last 24 Hr 98.1 F-99.3 F 64-71 16-20 91-108/51-65 93-100 nad, calm jvd flat, neck supple cta bl nl eff rrr nl s1, s2 no mrg + bs soft nd, mild right abd pain ext without e/c/c alert awake appropriate no jaundice, diaphoresis Current Medications Generic Name Dose Route Start Last Admin Trade Name Freq PRN Reason Stop Dose Admin Acetaminophen 650 mg 10/11/16 10:49 10/14/16 21:54 Tylenol - PO 650 mg Q4H PRN Administration FEVER Albuterol Sulfate 1 amp 10/11/16 11:00 10/15/16 06:16 Ventolin 0.083% Nebulizer Soln - NEB 1 amp Q4H ALLY Administration Aspirin 81 mg 10/08/16 10:00 10/14/16 09:43 Asa - PO 81 mg DAILY ALLY Administration Enoxaparin Sodium 40 mg 10/08/16 22:00 10/14/16 09:44 Lovenox - SQ 40 mg DAILY ALLY Administration Folic Acid 1 mg 10/08/16 12:15 10/14/16 09:43 Folic Acid - PO 1 mg DAILY ALLY Administration Guaifenesin 10 ml 10/08/16 19:57 10/11/16 20:50 Robitussin - PO 10 ml Q4H PRN Administration COUGH Levofloxacin 100 mls @ 100 mls/hr 10/12/16 10:30 10/14/16 09:44 Levaquin 500 Mg Premixed Ivpb - IVPB 100 mls/hr DAILY ALLY Administration Piperacillin Sod/Tazobactam Sod 50 mls @ 100 mls/hr 10/15/16 10:00 Zosyn 3.375gm Ivpb (Pre-Docked) IVPB Q8H-IV ALLY Protocol Magnesium Oxide 600 mg 10/14/16 22:00 10/14/16 21:54 Mag-Ox - PO 600 mg BID ALLY Administration Metoprolol Succinate 25 mg 10/11/16 13:15 10/14/16 09:43 Toprol Xl - PO 25 mg DAILY ALLY Administration Pancrelipase 1 cap 10/14/16 17:30 10/14/16 16:43 Creon 6,000 Units Capsule PO 1 cap TIDCM ALLY Administration Thiamine HCl 100 mg 10/09/16 10:00 10/14/16 09:43 Vitamin B1 - PO 100 mg DAILY ALLY Administration CBC, BMP 10/15/16 06:00 10/15/16 06:00 EKG reviewed, sr av delay, poor r wave progression. no acute ischemic changes tele: SR, no VT echo 09/2016: mild conc lvh. nl lvef. mild anterior apical HK. 1+ TR. bline ao root dilation CXR: chronic parenchymal/pleural disease in right paratracheal region, no acute pulmonary disease [place] cath report reviewed by cardiology service--04/09. mild luminal irregularities. however significant LAD myocardial bridge with mid- anterolateral hypokinesis on ventriculogram (overall EF normal 60%). a/p: 66 yo smoker with h/o HTN, pancreatitis s/p pancreatic resection (1983), cocaine use and ETOH abuse who is presenting to the ED with slurred speech, unsteady gait and who also noted symptoms of cp. Pre-op clearance ERCP - Patient with recent cath with no significant disease. No prior h/o CVA or CHF. RCRI of 0 but with poor functional capacity. Would estimate his CV risk as intermediate. Given recent episode of VT I would monitor closely and replete electrolytes. No further episodes of VT on low dose metoprolol. EF preserved and no significant coronary disease. VT may have been related to transient LAD ischemia from myocardial bridge. Would minimize vasodilation with anesthesia when possible to avoid excessive LV hypercontractility and decrease the likelihood of inducing transient ischemia related to bridge. CP - elevated CK c/w recent cocaine use, trop negative, no isch ecg findings - recent cath showing myocardial bridging, no sig cad - pt advised that he is potentially hi risk for MN given also with run of VT on tele, advised that cocaine use increases the risk significantly and he should f/ u with us for med mgmt and observation...advised him regarding risk/benefit of beta pat and cocaine use, he verbalizes understanding -echo with distal HK. Cont ASA. -LDL 48, ? if on statin at home (med list unknown)--defer statin at present time -cont bb for myocardial bridging, current cp does not seem cardiac VTach/intramyocardial bridge: -run of 26 beats VT on tele during this admit -K/Mag optimization - while limited clinical trial data exists on med mgmt of LAD myocardial bridge , the standard of care is b-blockers, then CCBs if need be. surgical resection limited to symptomatic pts (angina or VT) despite meds. - given it is very possible his current CP and/or his long run of VT are related to bridging (with anterior wall hypo noted on echo here as well), and given the risks of BB in cocaine are theoretical, with the vast majority of pts tolerating bb well, the pt seems to be at higher risk from VT/MN than for bb- related coronary vasospasm. Started low dose BB (metopr succ 25 qd), no further vt on tele and current cp does not seem cardiac Abnormal gait - ongoing neuro work up per pmd. brain mri results noted, neuro consult report reviewed. tobacco/crack cocaine use. - cessation counseling htn: -stable, monitor now on BB. cardiac tran remains stable
[2016-10-15] MEDS ORDERED: PT OWN MED DRAWER 7, Y5N ONE ×2 (11:24→16:54)
[2016-10-15] MEDS: LEVOFLOXACIN 500 MG IVPB 100 ML IVPB SCH (11:26)
[2016-10-15] MEDS: FOLIC ACID 1 MG TABLET (FP) PO SCH (11:26)
[2016-10-15] MEDS: ASPIRIN 81 MG CHEWABLE TABLETS PO SCH (11:26)
[2016-10-15] MEDS: THIAMINE HCL 100 MG TABLET (FP) PO SCH (11:27)
[2016-10-15] MEDS: MAGNESIUM OXIDE 400 MG TABLET (FP) PO SCH (11:27)
[2016-10-15] MEDS: guaiFENesin 200 MG/10 ML 10 ML UNIT-DOSE CUPS PO PRN (11:27)
[2016-10-15] MEDS: METOPROLOL SUCCINATE 25 MG TAB.SR.24H (FP) PO SCH (11:27)
[2016-10-15] MEDS: ACETAMINOPHEN 325 MG TABLET (FP) PO PRN ×2 (11:28→18:20)
--- NOTE | 2016-10-15 11:55 | PN ---
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
--- NOTE | 2016-10-15 12:25 | CONS ---
DATE OF CONSULTATION: DATE OF DICTATION: 10/15/2016 HISTORY OF PRESENT ILLNESS: The patient is a 66-year-old male evaluated for pneumonia. He was admitted to the hospital on October 08, 2016, with chest pain, slurred speech, and ataxia. He had apparently been just released from long term after being incarcerated for one week. He had also been drinking. He presented to the emergency room where toxicology screen was positive for alcohol. CT scan and MRI of the head were performed as well as neurology consultation. 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 No acute neurological event was diagnosed, and no further recommendations were made. His course was complicated by fever to 101.4 on October 11, 2016. CT scan of the chest shows chronic changes in the apices as well as patchy consolidation, left lower lobe. He was empirically treated with Levaquin. He is now day 4 of Levaquin. In addition, imaging studies showed pancreatic duct stones for which he was seen in consultation by GI. No further workup was initiated here. At the present time, he is awake and alert. He is out of bed to chair. He reports occasional cough productive of whitish sputum. He denies any chest pain. No purulent sputum production or hemoptysis. He denies any dyspnea. He has been afebrile with a normal white blood cell count. PAST MEDICAL HISTORY: Positive for alcohol abuse, pancreatitis, coronary artery disease, hypertension. ALLERGIES: No known allergies. SOCIAL HISTORY: Positive for tobacco, alcohol, and cocaine use. SYSTEMS REVIEW: Neurologic: As per HPI. Cardiac: No chest pain at present. Respiratory: As per HPI. Gastrointestinal: Negative for vomiting or diarrhea. Genitourinary: Negative for urinary tract infection. LABORATORY DATA: White count 6.3, hematocrit 36.7, platelet count 257. BUN 16, creatinine 0.9. Urinalysis 9 white cells. Blood and urine cultures negative. PHYSICAL EXAMINATION: General: Patient is out of bed to chair, in no acute distress, breathing is non-labored on room air. Vital signs: Temperature 98.1, blood pressure 108/65, pulse 64 and regular, respirations 20 per minute. HEENT: Sclerae anicteric. Heart: Heart sounds S1, S2. Lungs: Clear. No rhonchi, rales, or wheezing. Abdomen: Soft. No tenderness elicited. Extremities: Negative for edema. IMPRESSION: 1. Left lower lobe pneumonia, community-acquired versus atypical. 2. Status post dysarthria and ataxia, possibly alcohol related. 3. Pancreatic stones. 4. Alcohol abuse. Patient has defervesced and is clinically stable on Levaquin. Would substitute oral Levaquin 500 mg daily for additional 7 days, outpatient followup, HIV testing. Patient consents. He denies any risk factors and reports having tested HIV negative in the recent past. However, he consents to be retested. Please re-consult as needed. Thank you for the kind referral. APOLINAR WOODS M.D. [id number]
[2016-10-15 15:45] VITALS: BP 95/63; PULSE 63; TEMP 98.3
--- NOTE | 2016-10-15 15:59 | DS ---
Physical Exam: SUBJECTIVE: Patient seen and examined OBJECTIVE: Vital Signs Period Temp Pulse Resp BP Sys/Ramos Pulse Ox Last 24 Hr 98.1 F-98.9 F 63-68 16-20 91-112/51-67 93-95 PHYSICAL EXAM GENERAL: The patient is awake, alert, and fully oriented, in no acute distress. HEAD: Normal with no signs of trauma. EYES: PERRL, extraocular movements intact, sclera anicteric, conjunctiva clear. ENT: Ears normal, nares patent, oropharynx clear without exudates, moist mucous membranes. NECK: Trachea midline, full range of motion, supple. LUNGS: Breath sounds equal, clear to auscultation bilaterally, no wheezes, no crackles, no accessory muscle use. HEART: Regular rate and rhythm, S1, S2 without murmur, rub or gallop. ABDOMEN: Soft, nontender, nondistended, normoactive bowel sounds, no guarding, no rebound, no hepatosplenomegaly, no masses. EXTREMITIES: 2+ pulses, warm, well-perfused, no edema. NEUROLOGICAL: Cranial nerves II through XII grossly intact. Normal speech, gait not observed. PSYCH: Normal mood, normal affect. SKIN: Warm, dry, normal turgor, no rashes or lesions noted. LABS Laboratory Results - last 24 hr 10/15/16 10/15/16 10/15/16 06:00 06:00 06:00 WBC 6.3 RBC 3.77 L Hgb 12.2 Hct 36.7 MCV 97.3 H MCHC 33.3 RDW 13.5 Plt Count 257 D MPV 8.3 D Neutrophils % 57.2 Lymphocytes % 27.0 Monocytes % 12.7 H Eosinophils % 2.2 D Basophils % 0.9 Sodium 137 Potassium 4.8 D Chloride 97 L Carbon Dioxide 29 Anion Gap 11 BUN 16 D Creatinine 0.9 Creat Clearance w eGFR > 60 Random Glucose 98 D Calcium 10.0 Magnesium 2.1 Total Bilirubin 0.3 AST 39 H ALT 39 D Alkaline Phosphatase 73 Creatine Kinase 196 D Creatine Kinase Index 0.8 CK-MB (CK-2) 1.528 CK-MB (CK-2) Rel Index Cancelled Total Protein 7.8 D Albumin 3.7 HOSPITAL COURSE: Date of Admission:10/08/16 Date of Discharge: 10/15/16 Minutes to complete discharge: 35 Discharge Summary Reason For Visit: DYSARTHRIA/ CHEST PAIN Current Active Problems Alcohol dependence with uncomplicated withdrawal (Acute) Chest pain (Acute) Choledocholithiasis (Acute) Cocaine abuse (Acute) DVT prophylaxis (Acute) Dysarthria (Acute) HTN (hypertension) (Acute) History of [place] (myocardial infarction) (Acute) Hypomagnesemia (Acute) Rhabdomyolysis (Acute) Condition: Improved - Instructions Diet, Activity, Other Instructions: Seven prescriptions have been sent to your pharmacy. You should take these medications as directed. You should call on Tuesday morning and make an appointment to see Dr. Wright who can become your primary care provider if you choose. Return to the emergency department for any new or worsening symptoms. Referrals: Barrera Wright MD [Staff Physician] - Disposition: HOME - Home Medications Comprehensive Discharge Medication List: Ambulatory Orders Aspirin [ASA -] 81 mg PO DAILY tab.chew 10/15/16 Atorvastatin Ca [Lipitor] 20 mg PO HS #30 tablet 10/15/16 Folic Acid - 1 mg PO DAILY #30 tablet 10/15/16 Levofloxacin [Levaquin -] 500 mg PO DAILY #7 tablet 10/15/16 Lipase/Protease/Amylase [Creon Dr 6,000 Units Capsule] 1 cap PO TIDCM #90 cap Magnesium Oxide [Mag-Ox -] 600 mg PO BID #60 tablet 10/15/16 Metoprolol Succinate [Toprol XL -] 25 mg PO DAILY #30 tab 10/15/16 Thiamine HCl [Vitamin B1 -] 100 mg PO DAILY #30 tablet 10/15/16 This patient is new to me today: No Emergency Visit: Yes ED Registration Date: 10/08/16 Care time: The patient presented to the Emergency Department on the above date and was hospitalized for further evaluation of their emergent condition. Critical Care patient: No - Discharge Referral Referred to [facility] Med [facility].C[facility] Yes Physician Referral: Barrera Wong MD ([facility])
[2016-10-16] MEDS ORDERED: LEVOFLOXACIN 500 MG TABLET (FP) PO SCH (10:00)
== END 2016-10-15 18:40 | disposition home or self-care (01) | DRG 896 ==
LOC: JER 22:03 → JERBED 10-08 02:38 → UNDOADMIN 10-08 02:42 → JERBED 10-08 02:42 → J4S 10-08 12:12
PROVIDERS: ADMIT Internal Medicine; ATTEND Nurse Practitioner Acute Care
PROC: HZ2ZZZZ Detoxification Services for Substance Abuse Treatment (ICD-10-PCS; principal; 2016-10-08)
DX: F10.230 Alcohol dependence with withdrawal, uncomplicated (principal); J18.9 Pneumonia, unspecified organism; M62.82 Rhabdomyolysis; I47.2 Ventricular tachycardia; K86.1 Other chronic pancreatitis; R07.89 Other chest pain; I10 Essential (primary) hypertension; E83.42 Hypomagnesemia; F14.10 Cocaine abuse, uncomplicated; F17.210 Nicotine dependence, cigarettes, uncomplicated; K80.50 Calculus of bile duct without cholangitis or cholecystitis without obstruction; R26.81 Unsteadiness on feet; E11.9 Type 2 diabetes mellitus without complications; I95.9 Hypotension, unspecified; F10.220 Alcohol dependence with intoxication, uncomplicated
CPT/HCPCS: 36415; 70450-TC; 70551-TC; 71010-TC; 71260-TC; 74181-TC; 80048; 80053; 80061; 80307; 81003; 81015; 82550; 82553; 83036; 83605; 83721; 83735; 84100; 84132; 84484; 85025; 85610; 87040; 87086; 87899; 93005; 93010; 93306-TC; 94010; 94640; 97116-GP; 97161-GP; 99284-25

== ENCOUNTER 2016-11-02 09:15 | Emergency (ER) | payer BC, OTHER ==
[2016-11-02 09:22] VITALS: BP 112/71; PULSE 61; TEMP 98.1; BMI 20.9
[2016-11-02] MEDS ORDERED: SODIUM CHLORIDE 500 ML IV STA (09:58)
--- NOTE | 2016-11-02 10:05 | PDOC ---
Attending Attestation - Resident Resident Name: Ezio Zaldivar - HPI HPI: 11/02/16 10:14 Pt comes with total body aches and pains; no fever. He is an alcoholic. Last beer was yesterday 1 beer. Pt has no PMD and he was in the hospital 1 month ago for pancreatitis and pneumonia. He had never filled his abx, and thus never fully treated his pneumonia. - Physicial Exam PE: 11/02/16 10:15 Norrmal heart, lungs, neuro; no epigastric pain. Pt has arthritis and aches and he states he ate nothing today. 11/02/16 11:27 CXR is normal. - Medical Decision Making 11/02/16 12:26 CXR normal; labs normal; EKG unchanged from previous. Pt is stable for discharge home.
--- NOTE | 2016-11-02 10:22 | PDOC ---
History of Present Illness <Myra Abreu - Last Filed: 11/02/16 12:51> - General History Source: Patient, Family Exam Limitations: Clinical Condition - History of Present Illness Initial Comments: 11/02/16 10:16 Patient is a 66M with history of alcohol and cocaine abuse, HTN, NM, and pancreatitis is here today complaining of pain and confusion. He was admitted on 10/08 and discharged on 10/15 with a diagnosis of pancreatitis and pneumonia. Per daughter, he was unable to take his medications as an outpatient due to insurance issues with the pharmacy. Today, he complains of vague pains in his feet, back and neck. He complains of a cough and chills. His daughter says he's had decreased PO intake since coming back from the hospital. He denies nausea, vomiting, fevers, constipation, diarrhea and dysuria. <Ezio Zaldivar - Last Filed: 11/02/16 13:35> - General Chief Complaint: Pain Stated Complaint: PAIN/ LOWER BACK, LEGS, BODY Time Seen by Provider: 11/02/16 09:27 Past History <Myra Abreu - Last Filed: 11/02/16 12:51> - Past Medical History Asthma: No Cardiac Disorders: No COPD: No Diabetes: No GI Disorders: Yes (H/O PANCREATITIS.) Disorders: No HTN: Yes Kidney Stones: No Suicide Attempt (Hx): No Seizures: No - Surgical History Abdominal Surgery: Yes (pancreatic resection in 1983) Appendectomy: No Cardiac Surgery: No Cholecystectomy: No Lung Surgery: No Neurologic Surgery: No Orthopedic Surgery: Yes (left knee in 1988) - Reproductive History Testicular Surgery: No - Psycho/Social/Smoking Cessation Hx Anxiety: No Suicidal Ideation: No Smoking History: Current every day smoker Have you smoked in the past 12 months: Yes Number of Cigarettes Smoked Daily: 4 Information on smoking cessation initiated: Yes 'Breaking Loose' booklet given: 11/02/16 Hx Alcohol Use: No Drug/Substance Use Hx: No Substance Use Type: None Hx Substance Use Treatment: Yes <Ezio Zaldivar - Last Filed: 11/02/16 13:35> - Past Medical History Allergies/Adverse Reactions: Allergies Allergy/AdvReac Type Severity Reaction Status Date / Time No Known Allergies Allergy Verified 11/02/16 09:17 Home Medications: Ambulatory Orders Aspirin [ASA -] 81 mg PO DAILY tab.chew 10/15/16 Atorvastatin Ca [Lipitor] 20 mg PO HS #30 tablet 10/15/16 Folic Acid - 1 mg PO DAILY #30 tablet 10/15/16 Levofloxacin [Levaquin -] 500 mg PO DAILY #7 tablet 10/15/16 Lipase/Protease/Amylase [Brock Bynum 6,000 Units Capsule] 1 cap PO TIDCM #90 cap Magnesium Oxide [Mag-Ox -] 600 mg PO BID #60 tablet 10/15/16 Metoprolol Succinate [Toprol XL -] 25 mg PO DAILY #30 tab 10/15/16 Thiamine HCl [Vitamin B1 -] 100 mg PO DAILY #30 tablet 10/15/16 Methocarbamol [Robaxin -] 500 mg PO TID #30 tablet 11/02/16 Review of Systems - Review of Systems Constitutional: Yes: Chills, Loss of Appetite, Malaise. No: Fever HEENTM: No: Difficulty Swallowing Respiratory: Yes: Cough, Shortness of Breath Cardiac (ROS): No: Chest Pain ABD/GI: No: Constipated, Diarrhea, Nausea, Vomiting : No: Burning, Dysuria Musculoskeletal: Yes: Back Pain, Joint Pain, Muscle Pain, Neck Pain Neurological: Yes: Headache <Ezio Zaldivar - Last Filed: 11/02/16 13:35> *Physical Exam - Vital Signs Last Vital Signs Temp Pulse Resp BP Pulse Ox 98.1 F 61 18 112/71 100 11/02/16 09:17 11/02/16 09:17 11/02/16 09:17 11/02/16 09:17 11/02/16 09:17 <Myra Abreu - Last Filed: 11/02/16 12:51> - Vital Signs Last Vital Signs Temp Pulse Resp BP Pulse Ox 98.1 F 61 18 112/71 100 11/02/16 09:17 11/02/16 09:17 11/02/16 09:17 11/02/16 09:17 11/02/16 09:17 - Physical Exam Comments: 11/02/16 10:24 Gen: Well nourished, in no acute distress Neuro: Alert and oriented x4, CN2-12 intact, no focal neuro deficits HEENT: Atraumatic, normocephalic CV: RRR, no murmurs rubs or gallops Lungs: Normal work of breathing, clear to auscultation bilaterally Ext: 2+ pulses in both lower extremities, no edema. Thighs nontender to palpation Abd: Normal bowel sounds, nontender to palpation <Ezio Zaldivar - Last Filed: 11/02/16 13:35> ED Treatment Course - LABORATORY CBC & Chemistry Diagram: 11/02/16 10:33 11/02/16 10:33 - ADDITIONAL ORDERS Additional order review: Laboratory Results 11/02/16 11/02/16 10:33 10:33 Sodium 138 Potassium 4.3 Chloride 101 Carbon Dioxide 29 Anion Gap 8 BUN 10 D Creatinine 0.7 D Creat Clearance w eGFR > 60 Random Glucose 132 H D Calcium 9.2 Total Bilirubin 0.7 D AST 36 ALT 21 D Alkaline Phosphatase 71 LD Total 339 H Creatine Kinase 165 CK-MB (CK-2) < 1.0 CK-MB (CK-2) Rel Index < 1.0 Troponin I < 0.02 Total Protein 6.8 Albumin 3.0 L Lipase 29 L 11/02/16 10:33 RBC 3.51 L MCV 95.7 MCHC 33.4 RDW 13.2 MPV 8.0 Neutrophils % 62.2 Lymphocytes % 23.4 Monocytes % 11.6 H Eosinophils % 2.0 Basophils % 0.8 - Medications Given in the ED: ED Medications Discontinued Medications Generic Name Dose Route Start Last Admin Trade Name Freq PRN Reason Stop Dose Admin Sodium Chloride 500 mls @ 500 mls/hr 11/02/16 09:58 11/02/16 11:15 Normal Saline - IV 11/02/16 10:57 500 mls/hr ASDIR STA Administration Ketorolac Tromethamine 30 mg 11/02/16 11:06 11/02/16 11:15 Toradol Injection - IVPUSH 11/02/16 11:07 30 mg ONCE ONE Administration Methocarbamol 1,000 mg 11/02/16 12:25 11/02/16 12:40 Robaxin - PO 11/02/16 12:26 1,000 mg ONCE ONE Administration <Myra Abreu - Last Filed: 11/02/16 12:51> - LABORATORY CBC & Chemistry Diagram: 11/02/16 10:33 11/02/16 10:33 - RADIOLOGY Radiology Studies Ordered: Category Date Time Status CHEST X-RAY PORTABLE* [RAD] Stat Radiology 11/02/16 10:02 Ordered <Ezio Zaldivar - Last Filed: 11/02/16 13:35> Medical Decision Making - Medical Decision Making 11/02/16 10:26 Patient is 66M with history of pneumonia (not treated), alcohol abuse, cocaine abuse, htn, NM and pancreatitis here today complaining of pain. Vital signs stable and normal. Differential includes, but is not limited to: delirium secondary to pneumonia or other infection, intoxication, pancreatitis. Will do chest x-ray and labs to evaluate. 11/02/16 12:40 CBC, CMP, Cardiac Enzymes all normal. CXR shows no sign of infiltrate. Vital signs normal and stable. Pain under control. Patient and patient's daughter advised to take medications as directed by their hospital discharge instructions. Patient is able to ambulate and is no longer confused, per daughter. Will discharge patient. <Ezio Zaldivar - Last Filed: 11/02/16 13:35> *DC/Admit/Observation/Transfer - Discharge Dispostion Admit: No <Myra Abreu - Last Filed: 11/02/16 12:51> - Discharge Dispostion Admit: No - Attestations Physician Attestion: 11/02/16 12:43 I, Dr. Ezio Zaldivar, attest that this document has been prepared under my direction and personally reviewed by me in its entirety. I further attest, that it accurately reflects all work, treatment, procedures and medical decision -making performed by me. <Ezio Zaldivar - Last Filed: 11/02/16 13:35> Diagnosis at time of Disposition: Musculoskeletal back pain - Discharge Dispostion Disposition: HOME Condition at time of disposition: Stable - Prescriptions Prescriptions: Methocarbamol [Robaxin -] 500 mg PO TID #30 tablet - Patient Instructions Printed Discharge Instructions: Managing Chronic Low Back Pain, DI for Arthritis Additional Instructions: Please come back if you develop fever, chills, vomiting, or if the shortness of breath persists or worsens.
[2016-11-02] MEDS ORDERED: KETOROLAC TROMETHAMINE 30 MG/1 ML VIAL IVPUSH ONE (11:06)
[2016-11-02 11:12] LABS: BASOPHIL 0.8 % (0-2.0); MCHC 33.4 g/dl (32.0-35.9); MEAN CELL VOLUME 95.7 fl (80-96); NEUTROPHILS 62.2 % (42.8-82.8); PLATELET COUNT 236 K/MM3 (134-434); RDW 13.2 % (11.9-15.9); WHITE BLOOD COUNT 7.1 K/mm3 (4.0-10.0)
[2016-11-02] MEDS ORDERED: KETOROLAC TROMETHAMINE 30 MG/1 ML VIAL ONE (11:14)
[2016-11-02 11:35] LABS: ANION GAP 8 (8-16); CALCIUM 9.2 mg/dL (8.5-10.1); CO2 29 mmol/L (21-32); CREATININE 0.7 mg/dL (0.7-1.3); GLUCOSE,RANDOM 132 mg/dL (74-106); SGPT/ALT 21 U/L (12-78)
[2016-11-02 11:37] LABS: ALK PHOS 71 U/L (45-117); BILIRUBIN,TOTAL 0.7 mg/dL (0.2-1.0); TOT PROT 6.8 g/dl (6.4-8.2)
[2016-11-02 11:43] LABS: SGOT/AST 36 U/L (15-37)
[2016-11-02] MEDS ORDERED: METHOCARBAMOL 500 MG TABLET PO ONE (12:25)
--- NOTE | 2016-11-02 12:26 | EKG ---
Test Reason : Blood Pressure : / mmHG Vent. Rate : 054 BPM Atrial Rate : 054 BPM P-R Int : 224 ms QRS Dur : 118 ms QT Int : 450 ms P-R-T Axes : 011 072 078 degrees QTc Int : 426 ms SINUS BRADYCARDIA WITH 1ST DEGREE A-V BLOCK NON-SPECIFIC INTRA-VENTRICULAR CONDUCTION DELAY QS PATTERN IN aVL AND SLIGHT ST SEGMENT ELIVATION AND T WAVE INVERSION,POSSIBILITY OF HIGH LATERAL WALL VA NEEDS TT BE RULED OUT. WHEN COMPARED WITH ECG OF 11-OCT-2016 05:36, NO SIGNIFICANT CHANGE WAS FOUND PLEASE CORELATE CLINICALLY. Confirmed by RHEA WONG MD ([id number]) on 11/02/2016 12:26:14 PM Referred By: Confirmed By:RHEA WONG MD
[2016-11-02 12:27] LABS: LDH 339 U/L (87-241); TROPONIN I < 0.02 ng/ml (0.00-0.05)
[2016-11-02] MEDS ORDERED: METHOCARBAMOL 500 MG TABLET ONE (12:39)
== END 2016-11-02 13:28 | disposition home or self-care (01) ==
LOC: JER 09:15
PROC: 3E0337Z Introduction of Electrolytic and Water Balance Substance into Peripheral Vein, Percutaneous Approach (ICD-10-PCS; principal; 2016-11-02)
PROC: 3E0333Z Introduction of Anti-inflammatory into Peripheral Vein, Percutaneous Approach (ICD-10-PCS; 2016-11-02)
DX: M54.89 Other dorsalgia (principal); F10.10 Alcohol abuse, uncomplicated; F14.10 Cocaine abuse, uncomplicated; I25.2 Old myocardial infarction; I10 Essential (primary) hypertension; K85.90 Acute pancreatitis without necrosis or infection, unspecified
CPT/HCPCS: 36415; 71010-TC; 80053; 82550; 82553; 83615; 83690; 84484; 85025; 93005; 93010; 96361; 96374; 99283-25

== ENCOUNTER 2018-09-26 09:15 | Emergency (ER) | payer OTHER ==
[2018-09-26 09:24] VITALS: BP 133/79; PULSE 66; TEMP 98.5; BMI 21.6
[2018-09-26] MEDS ORDERED: ALBUTEROL SO4 2.5/IPRATROPIUM 0.5 INH SOL 3 ML VIAL.NEB. NEB ONE ×2 (10:01→10:10)
[2018-09-26] MEDS ORDERED: DEXAMETHASONE LIQUID 0.5 MG/5 ML 240 ML BULK BOTTLE PO ONE (10:01)
[2018-09-26] MEDS ORDERED: DEXAMETHASONE SOD PHOSPHATE 10 MG/1 ML VIAL ONE (10:11)
--- NOTE | 2018-09-26 10:49 | PDOC ---
History of Present Illness - General History Source: Patient Exam Limitations: No Limitations <Liv Cervantes - Last Filed: 09/26/18 11:18> <Zulema Collier - Last Filed: 09/26/18 15:27> - General Chief Complaint: Respiratory Stated Complaint: COUGHING UP PHLEGM Time Seen by Provider: 09/26/18 09:46 Past History - Travel Traveled outside of the country in the last 30 days: No Close contact w/someone who was outside of country & ill: No - Past Medical History Asthma: No Cardiac Disorders: No COPD: No Diabetes: No GI Disorders: Yes (H/O PANCREATITIS.) Disorders: No HTN: Yes Kidney Stones: No Seizures: No - Surgical History Abdominal Surgery: Yes (pancreatic resection in 1983) Appendectomy: No Cardiac Surgery: No Cholecystectomy: No Lung Surgery: No Neurologic Surgery: No Orthopedic Surgery: Yes (left knee in 1988) - Reproductive History Testicular Surgery: No - Immunization History Immunization Up to Date: No - Suicide/Smoking/Psychosocial Hx Smoking History: Current every day smoker Have you smoked in the past 12 months: Yes Number of Cigarettes Smoked Daily: 5 Information on smoking cessation initiated: No 'Breaking Loose' booklet given: 11/02/16 Hx Alcohol Use: No Drug/Substance Use Hx: No Substance Use Type: None Hx Substance Use Treatment: Yes <Liv Cervantes - Last Filed: 09/26/18 11:18> <Zulema Collier - Last Filed: 09/26/18 15:27> - Past Medical History Allergies/Adverse Reactions: Allergies Allergy/AdvReac Type Severity Reaction Status Date / Time No Known Allergies Allergy Verified 11/02/16 09:17 Home Medications: Ambulatory Orders Albuterol Sulfate Inhaler - [Ventolin HFA Inhaler -] 1 - 2 inh PO Q4H #1 inhaler 09/26/18 Azithromycin [Zithromax 250mg Tablets -] 250 mg PO UTDICT #6 tab 09/26/18 Benzonatate [Tessalon Pearls -] 100 mg PO TID #21 capsule 09/26/18 predniSONE [Deltasone -] 40 mg PO DAILY #8 tablet 09/26/18 Review of Systems - Review of Systems Able to Perform ROS?: Yes Comments:: 09/26/18 10:00 CONSTITUTIONAL: Absent: fever, chills, diaphoresis, generalized weakness, malaise, loss of appetite HEENT: Absent: rhinorrhea, nasal congestion, throat pain, throat swelling, difficulty swallowing, mouth swelling, ear pain, eye pain, visual Changes CARDIOVASCULAR: Absent: chest pain, loss of consciousness, palpitations, irregular heart rate, peripheral edema RESPIRATORY: Present: productive cough Absent: shortness of breath, dyspnea with exertion, orthopnea, wheezing, stridor, hemoptysis GASTROINTESTINAL: Absent: abdominal pain, abdominal distension, nausea, vomiting, diarrhea, constipation, melena, hematochezia GENITOURINARY: Absent: dysuria, frequency, urgency, hesitancy, hematuria, flank pain, genital pain MUSCULOSKELETAL: Absent: myalgia, arthralgia, joint swelling SKIN: Absent: rash, itching, pallor HEMATOLOGIC/IMMUNOLOGIC: Absent: easy bleeding, easy bruising, lymphadenopathy, frequent infections ENDOCRINE: Absent: unexplained weight gain, unexplained weight loss, heat intolerance, cold intolerance NEUROLOGIC: Absent: headache, focal weakness or paresthesias, dizziness, unsteady gait, seizure, mental status changes, bladder or bowel incontinence PSYCHIATRIC: Absent: anxiety, depression, suicidal or homicidal ideation, hallucinations. Is the patient limited Danish proficient: No <Liv Cervantes - Last Filed: 09/26/18 11:18> *Physical Exam - Vital Signs Last Vital Signs Temp Pulse Resp BP Pulse Ox 98.5 F 66 16 133/79 97 09/26/18 09:21 09/26/18 09:21 09/26/18 09:21 09/26/18 09:21 09/26/18 09:21 - Physical Exam Comments: 09/26/18 10:01 GENERAL: Well developed, well nourished. Awake and alert. No acute distress. HEENT: Normocephalic, atraumatic. PERRLA, EOMI. No conjunctival pallor. Sclera are non- icteric. Moist mucous membranes. Oropharynx is clear. NECK: Supple. Full ROM. No JVD. Carotid pulses 2+ and symmetric, without bruits. No thyromegaly. No lymphadenopathy. CARDIOVASCULAR: Regular rate and rhythm. No murmurs, rubs, or gallops. Distal pulses are 2+ and symmetric. PULMONARY: No evidence of respiratory distress. Lungs clear to auscultation bilaterally. No wheezing, rales or rhonchi. SKIN: Warm and dry. Normal capillary refill. No rashes. No jaundice. NEUROLOGICAL: Alert, awake, appropriate. Cranial nerves 2-12 intact. No deficits to light touch and temperature in face, upper extremities and lower extremities. No motor deficits in the in face, upper extremities and lower extremities. Normoreflexic in the upper and lower extremities. Normal speech. Toes are down- going bilaterally. Gait is normal without ataxia. PSYCHIATRIC: Cooperative. Good eye contact. Appropriate mood and affect. <Liv Cervantes - Last Filed: 09/26/18 11:18> - Vital Signs Last Vital Signs Temp Pulse Resp BP Pulse Ox 98.5 F 66 16 133/79 99 09/26/18 09:21 09/26/18 09:21 09/26/18 09:21 09/26/18 09:21 09/26/18 10:17 <Zulema Collier - Last Filed: 09/26/18 15:27> ED Treatment Course - Medications Given in the ED: ED Medications Discontinued Medications Generic Name Dose Route Start Last Admin Trade Name Freq PRN Reason Stop Dose Admin Albuterol/Ipratropium 1 amp 09/26/18 10:01 09/26/18 10:16 Duoneb - NEB 09/26/18 10:02 1 amp ONCE ONE Administration Dexamethasone 10 mg 09/26/18 10:01 09/26/18 10:15 Decadron Liquid - PO 09/26/18 10:02 10 mg ONCE ONE Administration <Zulema Collier - Last Filed: 09/26/18 15:27> Medical Decision Making - Medical Decision Making 09/26/18 10:49 The patient is a 68-year-old male with past medical history of pancreatitis, hypertension, who presents to the ER with 3 weeks of cough and chest congestion. He states that when he takes a deep breath it hurts. He'll he also states coughing makes his chest hurt. He has tried DayQuil and NyQuil with minimal relief of his symptoms. Patient has a [id number] history. Denies fevers, chills, sore throat, earache, lightheadedness, dizziness, chest pain, nausea, vomiting and diarrhea. A/P: Upper respiratory infection On exam lungs are clear to auscultation bilaterally, heart with regular rate and rhythm S1 and S2 present no murmurs rubs or gallops. Vital signs are stable, patient is afebrile. Minimal coughing and exam room. EKG shows normal sinus rhythm with a rate of 66 bpm. Normal intervals and axis. No acute ST-T wave changes. Overall normal EKG. Decadron, DuoNeb given for symptomatic treatment. Chest x-ray to be obtained Reevaluate 09/26/18 11:18 X-ray is negative for acute pathology. Old rib fractures of 5-6 L ribs noted Pt reports feeling better after medication Will treat with a z-pack and symptomatic therapy given smoking hx DC home with PCP follow up I discussed the physical exam findings, ancillary test results and final diagnoses with the patient. I answered all of the patient's questions. The patient was satisfied with the care received and felt comfortable with the discharge plan and treatment plan. The Patient agrees to follow up with the primary care physician/specialist within 24-72 hours. Return precautions were given. <Liv Cervantes - Last Filed: 09/26/18 11:18> - Medical Decision Making The patient was seen and evaluated in conjunction with midlevel provider under my direct supervision, ancillary studies were reviewed. I agree with the plan as outlined PA Billy HPI, workup/dispo as outlined. VS reviewed, wnl. Chest x-ray with old left-sided rib fractures chest x-ray with clear lungs, old left-sided rib fractures fifth and sixth ribs, no acute findings, no effusion or infiltrate, hyperinflated lungs consistent with underlying smoking history of possible COPD. We'll treat with Z-Adria given history, albuterol and Decadron administered as well for his cough 09/26/18 15:25 <Zulema Collier - Last Filed: 09/26/18 15:27> *DC/Admit/Observation/Transfer - Discharge Dispostion Decision to Admit order: No <Liv Cervantes - Last Filed: 09/26/18 11:18> <Zulema Collier - Last Filed: 09/26/18 15:27> Diagnosis at time of Disposition: Bronchitis - Discharge Dispostion Disposition: HOME Condition at time of disposition: Stable - Prescriptions Prescriptions: Albuterol Sulfate Inhaler - [Ventolin HFA Inhaler -] 1 - 2 inh PO Q4H #1 inhaler Azithromycin [Zithromax 250mg Tablets -] 250 mg PO UTDICT #6 tab Benzonatate [Tessalon Pearls -] 100 mg PO TID #21 capsule predniSONE [Deltasone -] 40 mg PO DAILY #8 tablet - Referrals Referrals: Erlin Goldberg MD [Staff Physician] - - Patient Instructions Printed Discharge Instructions: DI for Acute Bronchitis Additional Instructions: You have bronchitis Please use the inhaler every 4 hours for the next week to help with your cough. Take all other medications as directed Your chest x-ray did not show a pneumonia Please follow up with your primary care doctor in 1 week if your symptoms are not improving. Return to the emergency department if you have fevers, chills, worsening cough, chest pain, worsening shortness of breath or if you have any changes in your symptoms. - Post Discharge Activity Forms/Work/School Notes: Back to Work
--- NOTE | 2018-09-27 10:09 | EKG ---
Test Reason : Blood Pressure : / mmHG Vent. Rate : 066 BPM Atrial Rate : 066 BPM P-R Int : 188 ms QRS Dur : 108 ms QT Int : 392 ms P-R-T Axes : 081 068 071 degrees QTc Int : 410 ms POOR DATA QUALITY, INTERPRETATION MAY BE ADVERSELY AFFECTED NORMAL SINUS RHYTHM NORMAL ECG WHEN COMPARED WITH ECG OF 02-NOV-2016 10:23, LA INTERVAL HAS DECREASED NONSPECIFIC T WAVE ABNORMALITY NO LONGER EVIDENT IN ANTERIOR LEADS Confirmed by MONAE MILLER MD ([id number]) on 09/27/2018 10:08:31 AM Referred By: Confirmed By:MONAE MILLER MD
== END 2018-09-26 11:49 | disposition home or self-care (01) ==
LOC: JER 09:15
PROC: 3E0F7GC Introduction of Other Therapeutic Substance into Respiratory Tract, Via Natural or Artificial Opening (ICD-10-PCS; principal; 2018-09-26)
DX: J40 Bronchitis, not specified as acute or chronic (principal); I10 Essential (primary) hypertension; K86.89 Other specified diseases of pancreas; F17.210 Nicotine dependence, cigarettes, uncomplicated
CPT/HCPCS: 71046-TC-FY; 93005; 93010; 94640; 99282-25

== ENCOUNTER 2020-09-24 08:59 | Inpatient (IN) | payer OTHER ==
[2020-09-24 10:14] LABS: BASO % 0.8 % (0-2.0); EOS % 0.6 % (0-4.5); HEMATOCRIT 35.5 % (35.4-49); LYMPH % 22.9 % (8-40); MCH 32.1 pg (25.7-33.7); MCHC 33.9 g/dl (32.0-35.9); MEAN CELL VOLUME 94.6 fl (80-96); MEAN PLT VOLUME 7.9 fl (7.5-11.1); MONO % 11.1 % (3.8-10.2); NEUT % 64.6 % (42.8-82.8); PLATELET COUNT 246 K/MM3 (134-434); RBC 3.75 M/mm3 (4.00-5.60); RDW 14.5 % (11.9-15.9); WHITE BLOOD COUNT 7.2 K/mm3 (4.0-10.0)
[2020-09-24 10:19] LABS: INR 1.04 (0.83-1.09); PROTHROMBIN TIME (PATIENT) 12.6 SEC (9.7-13.0)
[2020-09-24 10:22] LABS: ACTIVATED PTT 37.2 SECONDS (25.2-36.5)
[2020-09-24 10:33] LABS: CALCIUM 9.5 mg/dL (8.5-10.1)
[2020-09-24 10:34] LABS: ALBUMIN 3.8 g/dl (3.4-5.0); BLOOD UREA NITROGEN 7.7 mg/dL (7-18)
[2020-09-24 10:37] LABS: CREATININE 0.7 mg/dL (0.55-1.3)
[2020-09-24 10:39] LABS: BILIRUBIN,TOTAL 0.9 mg/dL (0.2-1); TOT PROT 7.6 g/dl (6.4-8.2)
[2020-09-25 00:23] VITALS: BMI 19.7
[2020-09-25] MEDS: HEPARIN NA (PORCINE) 5,000 UNITS/ML 1ML VIAL SQ SCH ×2 (13:45→21:48)
[2020-09-25] MEDS: ACETAMINOPHEN 500 MG TABLET (FP) PO PRN ×2 (13:46→21:47)
[2020-09-26] MEDS: POLYETHYLENE GLYCOL 3350 119 GM BTL PO PRN ×2 (06:58→21:13)
[2020-09-26 09:06] LABS: CHOLESTEROL 120 mg/dL (50-200)
[2020-09-26 09:07] LABS: LDL CHOLESTEROL (ONLY SJRH) 28 mg/dL (5-100); TRIGLYCERIDES 49 mg/dL (0-150)
[2020-09-26 09:09] LABS: HDL CHOLESTEROL 85 mg/dL (40-60)
[2020-09-26] MEDS: HEPARIN NA (PORCINE) 5,000 UNITS/ML 1ML VIAL SQ SCH ×2 (09:24→21:02)
[2020-09-26] MEDS: ACETAMINOPHEN 500 MG TABLET (FP) PO PRN (21:12)
[2020-09-27] MEDS: ASPIRIN 81 MG CHEWABLE TABLETS PO SCH (09:47)
[2020-09-27] MEDS: HEPARIN NA (PORCINE) 5,000 UNITS/ML 1ML VIAL SQ SCH ×2 (09:47→21:38)
[2020-09-27] MEDS ORDERED: MAG HYDROX/AL HYDROX/SIMETH -MYLANTA- ORAL SUSPENSION PO ONE (21:02)
[2020-09-27] MEDS ORDERED: MAG HYDROX/AL HYDROX/SIMETH 30 ML UNIT-DOSE CUP PO ONE (21:30)
[2020-09-27] MEDS: ACETAMINOPHEN 500 MG TABLET (FP) PO PRN (21:38)
[2020-09-28] MEDS: ASPIRIN 81 MG CHEWABLE TABLETS PO SCH (09:10)
[2020-09-28] MEDS: HEPARIN NA (PORCINE) 5,000 UNITS/ML 1ML VIAL SQ SCH ×2 (09:10→22:36)
[2020-09-28 12:08] LABS: BASO % 0.9 % (0-2.0); EOS % 2.4 % (0-4.5); HEMATOCRIT 31.9 % (35.4-49); HEMOGLOBIN 10.9 GM/dL (11.7-16.9); LYMPH % 22.2 % (8-40); MEAN CELL VOLUME 94.1 fl (80-96); MEAN PLT VOLUME 7.7 fl (7.5-11.1); MONO % 12.3 % (3.8-10.2); NEUT % 62.2 % (42.8-82.8); PLATELET COUNT 258 K/MM3 (134-434); RBC 3.39 M/mm3 (4.00-5.60); WHITE BLOOD COUNT 6.1 K/mm3 (4.0-10.0)
[2020-09-28 12:31] LABS: ALBUMIN 3.4 g/dl (3.4-5.0); CALCIUM 9.6 mg/dL (8.5-10.1)
[2020-09-28 12:33] LABS: BLOOD UREA NITROGEN 10.4 mg/dL (7-18)
[2020-09-28 12:35] LABS: CREATININE 0.6 mg/dL (0.55-1.3)
[2020-09-28 12:36] LABS: BILIRUBIN,TOTAL 0.3 mg/dL (0.2-1)
[2020-09-28] MEDS ORDERED: PT OWN MED DRAWER 7, Y5N ONE (14:19)
[2020-09-29] MEDS: ACETAMINOPHEN 500 MG TABLET (FP) PO PRN ×2 (07:51→16:18)
[2020-09-29 08:10] LABS: BASO % 0.6 % (0-2.0); EOS % 2.4 % (0-4.5); HEMATOCRIT 31.4 % (35.4-49); HEMOGLOBIN 10.8 GM/dL (11.7-16.9); LYMPH % 25.2 % (8-40); MCH 32.3 pg (25.7-33.7); MCHC 34.4 g/dl (32.0-35.9); MEAN CELL VOLUME 93.8 fl (80-96); MEAN PLT VOLUME 8.2 fl (7.5-11.1); MONO % 14.3 % (3.8-10.2); NEUT % 57.5 % (42.8-82.8); PLATELET COUNT 264 K/MM3 (134-434); RBC 3.35 M/mm3 (4.00-5.60); RDW 13.8 % (11.9-15.9); WHITE BLOOD COUNT 7.1 K/mm3 (4.0-10.0)
[2020-09-29 08:27] LABS: BLOOD UREA NITROGEN 12.1 mg/dL (7-18)
[2020-09-29 08:28] LABS: ALBUMIN 3.3 g/dl (3.4-5.0); CALCIUM 9.4 mg/dL (8.5-10.1)
[2020-09-29 08:32] LABS: BILIRUBIN,TOTAL 0.3 mg/dL (0.2-1); CREATININE 0.6 mg/dL (0.55-1.3)
[2020-09-29] MEDS: ASPIRIN 81 MG CHEWABLE TABLETS PO SCH (09:05)
[2020-09-29] MEDS: HEPARIN NA (PORCINE) 5,000 UNITS/ML 1ML VIAL SQ SCH ×2 (09:05→21:07)
[2020-09-29] MEDS ORDERED: MAG HYDROX/AL HYDROX/SIMETH 30 ML UNIT-DOSE CUP PO ONE (14:30)
[2020-09-29] MEDS ORDERED: PT OWN MED DRAWER 7, Y5N ONE (17:26)
[2020-09-29] MEDS: POLYETHYLENE GLYCOL 3350 119 GM BTL PO PRN (21:07)
[2020-09-30] MEDS ORDERED: MAG HYDROX/AL HYDROX/SIMETH 30 ML UNIT-DOSE CUP PO ONE (01:24)
[2020-09-30] MEDS: HEPARIN NA (PORCINE) 5,000 UNITS/ML 1ML VIAL SQ SCH ×2 (09:41→21:44)
[2020-09-30] MEDS: ASPIRIN 81 MG CHEWABLE TABLETS PO SCH (09:41)
[2020-09-30] MEDS ORDERED: MAG HYDROX/AL HYDROX/SIMETH -MYLANTA- ORAL SUSPENSION PO ONE (22:41)
[2020-10-01 06:10] VITALS: BP 108/58; PULSE 56; TEMP 98.3
[2020-10-01] MEDS: HEPARIN NA (PORCINE) 5,000 UNITS/ML 1ML VIAL SQ SCH (09:31)
[2020-10-01] MEDS: ASPIRIN 81 MG CHEWABLE TABLETS PO SCH (09:31)
[2020-10-01] MEDS: ACETAMINOPHEN 500 MG TABLET (FP) PO PRN (11:11)
== END 2020-10-01 13:00 | DRG 536 ==
LOC: JER 08:59 → JERBED 14:10 → J8W 22:33
PROVIDERS: ADMIT Family Medicine; ATTEND Family Medicine
DX: S72.115A Nondisplaced fracture of greater trochanter of left femur, initial encounter for closed fracture (principal); I10 Essential (primary) hypertension; I25.10 Atherosclerotic heart disease of native coronary artery without angina pectoris; I25.2 Old myocardial infarction; R29.6 Repeated falls; F14.10 Cocaine abuse, uncomplicated; F10.20 Alcohol dependence, uncomplicated; W01.0XXA Fall on same level from slipping, tripping and stumbling without subsequent striking against object, initial encounter; Y92.89 Other specified places as the place of occurrence of the external cause
CPT/HCPCS: 36415; 70450-TC; 71045-TC-FY; 72100-TC-FY; 72125-TC; 72192-TC; 73523-TC-FY; 73630-TC-RT-FY; 73721-LT-TC; 80053; 80061; 82272; 82728; 83540; 83550; 83721; 84443; 85025; 85610; 85730; 93005; 93010; 97116-GP; 97161-GP; 99285-25; C9803; J1644; U0003; U0005

== ENCOUNTER 2021-08-10 09:31 | Inpatient (IN) | payer BC, OTHER ==
[2021-08-10] MEDS ORDERED: ACETAMINOPHEN 1000 MG/100 ML BAG IVPB ONE (11:29)
[2021-08-10] MEDS ORDERED: ACETAMINOPHEN INJECTION 100 ML IVPB ONE (11:48)
[2021-08-10 14:04] LABS: BASO % 0.5 % (0-2.0); EOS % 0.3 % (0-4.5); HEMATOCRIT 34.4 % (35.4-49); HEMOGLOBIN 11.7 GM/dL (11.7-16.9); MCH 30.8 pg (25.7-33.7); MEAN CELL VOLUME 90.6 fl (80-96); MEAN PLT VOLUME 7.8 fl (7.5-11.1); MONO % 12.9 % (3.8-10.2); NEUT % 71.3 % (42.8-82.8); PLATELET COUNT 406 10^3/uL (134-434); RDW 12.9 % (11.9-15.9); WHITE BLOOD COUNT 10.2 K/mm3 (4.0-10.0)
[2021-08-10 14:13] LABS: BLOOD UREA NITROGEN 7.5 mg/dL (7-18); CALCIUM 9.2 mg/dL (8.5-10.1)
[2021-08-10 14:14] LABS: ALBUMIN 3.4 g/dl (3.4-5.0)
[2021-08-10 14:17] LABS: CREATININE 0.8 mg/dL (0.55-1.3)
[2021-08-10 14:18] LABS: BILIRUBIN,TOTAL 0.6 mg/dL (0.2-1); TOT PROT 7.8 g/dl (6.4-8.2)
[2021-08-10] MEDS ORDERED: POTASSIUM CHLORIDE TABS 20 MEQ TABLET.ER (FP) PO ONE ×4 (14:43→21:28)
[2021-08-10] MEDS ORDERED: ACETAMINOPHEN 500 MG TABLET (FP) PO ONE (15:54)
[2021-08-10] MEDS ORDERED: ACETAMINOPHEN 500 MG TABLET (FP) ONE (15:55)
[2021-08-10] MEDS ORDERED: ALBUTEROL SO4 2.5/IPRATROPIUM 0.5 INH SOL 3 ML VIAL.NEB. NEB ONE (17:56)
[2021-08-10 20:29] LABS: MAGNESIUM 1.3 mg/dL (1.8-2.4)
[2021-08-10 20:32] LABS: PHOSPHOROUS 3.7 mg/dL (2.5-4.9)
[2021-08-10] MEDS ORDERED: MAGNESIUM SULF 50% (8.12 MEQ/2 ML-1 GM VIAL) IVPB ONE (21:11)
[2021-08-10] MEDS ORDERED: ACETAMINOPHEN 1000 MG/100 ML BAG IVPB PRN (21:17)
[2021-08-10] MEDS ORDERED: ACETAMINOPHEN 325 MG TABLET (FP) PO PRN (21:17)
[2021-08-10] MEDS ORDERED: IBUPROFEN 600 MG TABLET (FP) PO PRN (21:22)
[2021-08-10] MEDS ORDERED: LIDOCAINE 5% TOPICAL PATCH ONE (21:29)
[2021-08-10] MEDS ORDERED: MAGNESIUM 1GM/D5W - 1 GM/100 ML IVPB IVPB ONE (21:30)
[2021-08-10] MEDS: LIDOCAINE 5% TOPICAL PATCH TP SCH (21:48)
[2021-08-10] MEDS: LIDOCAINE PATCH REMOVAL MC SCH (22:09)
[2021-08-10 22:40] LABS: URIC ACID 4.1 mg/dL (2.6-7.2)
[2021-08-11] MEDS ORDERED: ACETAMINOPHEN 500 MG TABLET (FP) ONE (04:51)
[2021-08-11] MEDS: ACETAMINOPHEN 500 MG TABLET (FP) PO PRN (04:56)
[2021-08-11] MEDS ORDERED: IBUPROFEN 400 MG TABLET (FP) PO SCH (06:00)
[2021-08-11 06:35] LABS: BASO % 0.3 % (0-2.0); EOS % 0.1 % (0-4.5); HEMATOCRIT 30.8 % (35.4-49); HEMOGLOBIN 10.4 GM/dL (11.7-16.9); LYMPH % 15.9 % (8-40); MCH 30.7 pg (25.7-33.7); MCHC 33.8 g/dl (32.0-35.9); MEAN CELL VOLUME 90.8 fl (80-96); MEAN PLT VOLUME 7.9 fl (7.5-11.1); MONO % 11.6 % (3.8-10.2); NEUT % 72.1 % (42.8-82.8); PLATELET COUNT 370 10^3/uL (134-434); RBC 3.39 M/mm3 (4.00-5.60); RDW 12.9 % (11.9-15.9); WHITE BLOOD COUNT 9.4 K/mm3 (4.0-10.0)
[2021-08-11 06:59] LABS: CALCIUM 8.6 mg/dL (8.5-10.1)
[2021-08-11 07:00] LABS: ALBUMIN 2.8 g/dl (3.4-5.0); BLOOD UREA NITROGEN 10.3 mg/dL (7-18); MAGNESIUM 1.4 mg/dL (1.8-2.4)
[2021-08-11 07:02] LABS: CREATININE 0.7 mg/dL (0.55-1.3); PHOSPHOROUS 2.9 mg/dL (2.5-4.9)
[2021-08-11 07:04] LABS: BILIRUBIN,TOTAL 0.5 mg/dL (0.2-1); TOT PROT 6.3 g/dl (6.4-8.2)
[2021-08-11] MEDS ORDERED: MAGNESIUM SULF 50% (8.12 MEQ/2 ML-1 GM VIAL) IVPB ONE (07:30)
[2021-08-11] MEDS ORDERED: PANTOPRAZOLE 20 MG TABLET PO ONE (09:04)
[2021-08-11] MEDS ORDERED: IBUPROFEN 400 MG TABLET (FP) PO ONE (09:04)
[2021-08-11] MEDS ORDERED: MAGNESIUM 1GM/D5W - 2 GM/200 ML IVPB IVPB ONE (09:05)
[2021-08-11] MEDS ORDERED: LIDOCAINE 5% TOPICAL PATCH ONE (09:05)
[2021-08-11] MEDS: LIDOCAINE 5% TOPICAL PATCH TP SCH (09:07)
[2021-08-11] MEDS: PANTOPRAZOLE 20 MG TABLET PO SCH (09:09)
[2021-08-11] MEDS: AMPICILLIN NA/SULBACTAM NA 3 GM in SODIUM CHLORIDE 100 ML IVPB SCH ×3 (10:13→23:04)
[2021-08-11] MEDS ORDERED: CYCLOBENZAPRINE HCL 5 MG TABLET PO ONE (12:30)
[2021-08-11] MEDS ORDERED: CYCLOBENZAPRINE HCL 5 MG TABLET ONE (12:48)
[2021-08-11] MEDS ORDERED: NAPROXEN 500 MG TABLET ONE (13:37)
[2021-08-11] MEDS ORDERED: NAPROXEN 500 MG TABLET PO ONE (14:00)
[2021-08-11] MEDS ORDERED: ALBUTEROL SO4 HFA INHALER IH PRN (15:12)
[2021-08-11 17:44] LABS: EPI CELLS 17 /uL (0-25.1); HYALINE CASTS 1 /uL (0-3.1); URINE APPEARANCE CLEAR; URINE BACTERIA 151 /uL (0-1359); URINE BILIRUBIN NEGATIVE (NEGATIVE); URINE COLOR YELLOW; URINE GLUCOSE (UA) NEGATIVE (NEGATIVE); URINE KETONE NEGATIVE (NEGATIVE); URINE LEUK ESTERASE 1+ (NEGATIVE); URINE NITRITE NEGATIVE (NEGATIVE); URINE PROTEIN NEGATIVE (NEGATIVE); URINE RBC 6 /uL (0-23.9); URINE UROBILINOGEN 0.2 mg/dL (0.2-1.0); URINE WBC 126 /uL (0-25.8)
[2021-08-11 17:56] LABS: COCAINE, UR NEGATIVE (NEGATIVE); METHADONE, UR NEGATIVE (NEGATIVE); OPIATES, URI NEGATIVE (NEGATIVE); PHENCYCLIDINE,URINE NEGATIVE (NEGATIVE); URINE AMPHETAMINES NEGATIVE (NEGATIVE); URINE BENZODIAZEPINES NEGATIVE (NEGATIVE)
[2021-08-11 18:04] LABS: URINE BARBITURATES NEGATIVE (NEGATIVE)
[2021-08-11] MEDS: LIDOCAINE PATCH REMOVAL MC SCH (23:05)
[2021-08-11] MEDS: BUDESONIDE/FORMETEROL FUMARATE 160/4.5 mcg INHALER IH SCH (23:05)
[2021-08-11] MEDS: CYCLOBENZAPRINE HCL 5 MG TABLET PO SCH (23:05)
[2021-08-11] MEDS: NAPROXEN 500 MG TABLET PO SCH (23:05)
[2021-08-12 01:09] VITALS: BMI 21.2
[2021-08-12] MEDS: AMPICILLIN NA/SULBACTAM NA 3 GM in SODIUM CHLORIDE 100 ML IVPB SCH ×4 (03:25→16:25)
[2021-08-12] MEDS: CYCLOBENZAPRINE HCL 5 MG TABLET PO SCH ×4 (05:57→21:37)
[2021-08-12 09:16] LABS: BASO % 0.3 % (0-2.0); EOS % 0.4 % (0-4.5); HEMATOCRIT 29.9 % (35.4-49); HEMOGLOBIN 10.2 GM/dL (11.7-16.9); LYMPH % 20.5 % (8-40); MCH 31.1 pg (25.7-33.7); MCHC 34.2 g/dl (32.0-35.9); MEAN PLT VOLUME 7.8 fl (7.5-11.1); NEUT % 67.8 % (42.8-82.8); PLATELET COUNT 363 10^3/uL (134-434); RBC 3.29 M/mm3 (4.00-5.60); RDW 12.7 % (11.9-15.9); WHITE BLOOD COUNT 7.5 K/mm3 (4.0-10.0)
[2021-08-12 09:51] LABS: CALCIUM 8.6 mg/dL (8.5-10.1)
[2021-08-12 09:52] LABS: BLOOD UREA NITROGEN 9.4 mg/dL (7-18); MAGNESIUM 1.5 mg/dL (1.8-2.4)
[2021-08-12 09:55] LABS: CREATININE 0.7 mg/dL (0.55-1.3)
[2021-08-12] MEDS: FERROUS SO4 325 MG TABLET (FP) PO SCH (11:16)
[2021-08-12] MEDS: MULTIVITAMINS (DAILY MVI) TABLET (FP) PO SCH (11:16)
[2021-08-12] MEDS: PANTOPRAZOLE 20 MG TABLET PO SCH (11:16)
[2021-08-12] MEDS: ASPIRIN 81 MG CHEWABLE TABLETS PO SCH (11:16)
[2021-08-12] MEDS: NAPROXEN 500 MG TABLET PO SCH ×2 (11:16→21:37)
[2021-08-12] MEDS: LIDOCAINE 5% TOPICAL PATCH TP SCH (11:17)
[2021-08-12] MEDS: BUDESONIDE/FORMETEROL FUMARATE 160/4.5 mcg INHALER IH SCH ×2 (11:18→21:37)
[2021-08-12] MEDS ORDERED: MAGNESIUM SULF 50% (8.12 MEQ/2 ML-1 GM VIAL) IVPB ONE (15:16)
[2021-08-12] MEDS ORDERED: SODIUM CHLORIDE 100 ML IVPB ONE (16:12)
[2021-08-12] MEDS ORDERED: AMPICILLIN NA/SULBACTAM NA 3 GM VIAL ONE ×2 (16:12→16:27)
[2021-08-12] MEDS: LIDOCAINE PATCH REMOVAL MC SCH (21:37)
[2021-08-13] MEDS: CYCLOBENZAPRINE HCL 5 MG TABLET PO SCH ×3 (05:49→21:19)
[2021-08-13 08:32] LABS: BASO % 0.7 % (0-2.0); EOS % 1.1 % (0-4.5); HEMATOCRIT 28.3 % (35.4-49); HEMOGLOBIN 9.8 GM/dL (11.7-16.9); LYMPH % 24.8 % (8-40); MCH 31.3 pg (25.7-33.7); MCHC 34.7 g/dl (32.0-35.9); MEAN CELL VOLUME 90.1 fl (80-96); MEAN PLT VOLUME 7.5 fl (7.5-11.1); MONO % 11.3 % (3.8-10.2); NEUT % 62.1 % (42.8-82.8); PLATELET COUNT 346 10^3/uL (134-434); RBC 3.14 M/mm3 (4.00-5.60); WHITE BLOOD COUNT 6.3 K/mm3 (4.0-10.0)
[2021-08-13 09:04] LABS: CALCIUM 8.8 mg/dL (8.5-10.1); MAGNESIUM 1.6 mg/dL (1.8-2.4)
[2021-08-13 09:05] LABS: BLOOD UREA NITROGEN 8.9 mg/dL (7-18)
[2021-08-13 09:08] LABS: CREATININE 0.7 mg/dL (0.55-1.3)
[2021-08-13 09:32] LABS: ERYTHROCYTE SEDIMENTATION RATE 104 mm/hr (0-20)
[2021-08-13] MEDS: FERROUS SO4 325 MG TABLET (FP) PO SCH (09:54)
[2021-08-13] MEDS: ASPIRIN 81 MG CHEWABLE TABLETS PO SCH (09:54)
[2021-08-13] MEDS: MULTIVITAMINS (DAILY MVI) TABLET (FP) PO SCH (09:54)
[2021-08-13] MEDS: PANTOPRAZOLE 20 MG TABLET PO SCH (09:54)
[2021-08-13] MEDS: BUDESONIDE/FORMETEROL FUMARATE 160/4.5 mcg INHALER IH SCH ×2 (09:55→21:20)
[2021-08-13] MEDS: NAPROXEN 500 MG TABLET PO SCH ×2 (09:55→21:19)
[2021-08-13] MEDS: LIDOCAINE 5% TOPICAL PATCH TP SCH (09:55)
[2021-08-13] MEDS ORDERED: MAGNESIUM 2GM/50ML STERILE WATER IVPB IVPB ONE (17:05)
[2021-08-13] MEDS: ACETAMINOPHEN 500 MG TABLET (FP) PO PRN (17:19)
[2021-08-13] MEDS: traMADol HCL 50 MG TABLET PO PRN (21:19)
[2021-08-13] MEDS: LIDOCAINE PATCH REMOVAL MC SCH (21:20)
[2021-08-14] MEDS: CYCLOBENZAPRINE HCL 5 MG TABLET PO SCH ×2 (06:36→14:47)
[2021-08-14 07:23] LABS: CALCIUM 8.9 mg/dL (8.5-10.1)
[2021-08-14 07:24] LABS: BLOOD UREA NITROGEN 7.2 mg/dL (7-18); MAGNESIUM 1.7 mg/dL (1.8-2.4)
[2021-08-14 07:26] LABS: URIC ACID 4.8 mg/dL (2.6-7.2)
[2021-08-14 07:27] LABS: CREATININE 0.6 mg/dL (0.55-1.3)
[2021-08-14] MEDS ORDERED: MAGNESIUM SULF 50% (8.12 MEQ/2 ML-1 GM VIAL) IVPB ONE (08:15)
[2021-08-14] MEDS: FERROUS SO4 325 MG TABLET (FP) PO SCH (10:35)
[2021-08-14] MEDS: LIDOCAINE 5% TOPICAL PATCH TP SCH (10:35)
[2021-08-14] MEDS: MULTIVITAMINS (DAILY MVI) TABLET (FP) PO SCH (10:35)
[2021-08-14] MEDS: ASPIRIN 81 MG CHEWABLE TABLETS PO SCH (10:36)
[2021-08-14] MEDS: traMADol HCL 50 MG TABLET PO PRN (10:36)
[2021-08-14] MEDS: BUDESONIDE/FORMETEROL FUMARATE 160/4.5 mcg INHALER IH SCH (10:37)
[2021-08-14] MEDS: ACETAMINOPHEN 500 MG TABLET (FP) PO PRN (10:37)
[2021-08-14] MEDS: PANTOPRAZOLE 20 MG TABLET PO SCH (10:37)
[2021-08-14] MEDS: NAPROXEN 500 MG TABLET PO SCH (10:38)
[2021-08-14 13:40] VITALS: BP 103/57; PULSE 60; TEMP 98.6
== END 2021-08-14 17:30 | disposition home or self-care (01) | DRG 552 ==
LOC: JER 09:31 → JERBED 18:07 → J4S 08-11 20:07
DX: M47.812 Spondylosis without myelopathy or radiculopathy, cervical region (principal); M06.9 Rheumatoid arthritis, unspecified; M75.101 Unspecified rotator cuff tear or rupture of right shoulder, not specified as traumatic; M79.603 Pain in arm, unspecified; F10.10 Alcohol abuse, uncomplicated; F14.10 Cocaine abuse, uncomplicated; I10 Essential (primary) hypertension; M10.9 Gout, unspecified; E83.42 Hypomagnesemia
CPT/HCPCS: 36415; 70450-TC; 71101-TC-LT-FY; 71260-TC; 72125-TC; 73030-TC-RT-FY; 73060-TC-RT-FY; 73110-TC-RT-FY; 80048; 80053; 80307; 81003; 82962; 83735; 84100; 84484; 84550; 85025; 85651; 86038; 86140; 86431; 87040; 87086; 93005; 93010; 93306-TC; 93880-TC; 93971; 97116-GP; 97161-GP; 99285-25; C9803-CS; Q9967; U0003; U0005

== ENCOUNTER 2022-01-24 20:39 | Inpatient (IN) | payer OTHER ==
[2022-01-24 22:27] VITALS: BMI 21.3
[2022-01-24] MEDS ORDERED: guaiFENesin 200 MG/10 ML 10 ML UNIT-DOSE CUPS PO PRN (22:41)
[2022-01-24] MEDS ORDERED: IBUPROFEN 400 MG TABLET (FP) PO PRN (22:41)
[2022-01-24] MEDS ORDERED: METHOCARBAMOL 500 MG TABLET PO PRN (22:41)
[2022-01-24] MEDS ORDERED: NICOTINE POLACRILEX 2 MG GUM BUC PRN (22:41)
[2022-01-24] MEDS ORDERED: NALOXONE HCL (KLOXXADO) 8 MG SPRAY NS PRN (22:41)
[2022-01-24] MEDS ORDERED: LOPERAMIDE HCL 2 MG CAPSULE PO PRN (22:41)
[2022-01-24] MEDS ORDERED: BISMUTH SUBSALICYLATE 524 MG/30 ML PO PRN (22:41)
[2022-01-24] MEDS ORDERED: ONDANSETRON *ODT* 4 MG TABLET SL PRN (22:41)
[2022-01-24] MEDS ORDERED: MAGNESIUM CITRATE 300 ML BOTTLE PO PRN (22:41)
[2022-01-24] MEDS ORDERED: MAGNESIUM HYDROX 2400MG/30ML ORAL SUSPENSION 30 ML CUP PO PRN (22:41)
[2022-01-24] MEDS ORDERED: BENZOCAINE/MENTHOL (CHLORASEPTIC ) LOZENGE MM PRN (22:41)
[2022-01-24] MEDS ORDERED: IBUPROFEN 600 MG TABLET (FP) PO PRN (22:41)
[2022-01-24] MEDS ORDERED: hydrOXYzine PAMOATE 25 MG CAPSULE (FP) PO PRN (22:41)
[2022-01-24] MEDS ORDERED: ACETAMINOPHEN 325 MG TABLET (FP) PO PRN ×2 (22:41)
[2022-01-24] MEDS ORDERED: MAG HYDROX/AL HYDROX/SIMETH 30 ML UNIT-DOSE CUP PO PRN (22:41)
[2022-01-24] MEDS ORDERED: DICYCLOMINE HCL 10 MG CAPSULE PO PRN (22:41)
[2022-01-24] MEDS ORDERED: P-EPHED 60MG/TRIPROLIDI 2.5MG TABLET PO PRN (22:41)
[2022-01-25 09:38] LABS: HEMATOCRIT 32.2 % (35.4-49); HEMOGLOBIN 10.5 GM/dL (11.7-16.9); MCH 30.8 pg (25.7-33.7); MCHC 32.6 g/dl (32.0-35.9); MEAN CELL VOLUME 94.2 fl (80-96); PLATELET COUNT 289 10^3/uL (134-434); RBC 3.42 M/mm3 (4.00-5.60); RDW 13.7 % (11.9-15.9); WHITE BLOOD COUNT 4.9 K/mm3 (4.0-10.0)
[2022-01-25 09:47] LABS: BLOOD UREA NITROGEN 12.6 mg/dL (7-18)
[2022-01-25 09:48] LABS: ALBUMIN 3.3 g/dl (3.4-5.0)
[2022-01-25 09:51] LABS: CREATININE 0.9 mg/dL (0.55-1.3)
[2022-01-25 09:52] LABS: BILIRUBIN,TOTAL 0.4 mg/dL (0.2-1); TOT PROT 6.8 g/dl (6.4-8.2)
[2022-01-25] MEDS: NICOTINE 14 MG/24 HOURS TOPICAL PATCH TD SCH (10:44)
[2022-01-25] MEDS: PRENATAL VITAMINS W/ FOLIC ACID TABLET (FP) PO SCH (10:44)
[2022-01-25] MEDS ORDERED: FLU VACC QS2022-23(6MOS UP)/PF 60 MCG/0.5 ML SYRINGE IM ONE (12:00)
[2022-01-25] MEDS ORDERED: MELATONIN 5 MG TABLETS PO SCH (22:00)
[2022-01-25] MEDS ORDERED: THIAMINE HCL 100 MG TABLET (FP) PO SCH (22:00)
[2022-01-26 09:16] VITALS: TEMP 97.8
[2022-01-26] MEDS: NICOTINE 14 MG/24 HOURS TOPICAL PATCH TD SCH (10:39)
[2022-01-26] MEDS: PRENATAL VITAMINS W/ FOLIC ACID TABLET (FP) PO SCH (10:39)
[2022-01-26 12:58] VITALS: BP 129/66; PULSE 57; RESP 18
== END 2022-01-26 12:21 | disposition home or self-care (01) | DRG 897 ==
LOC: YASAS 20:39 → UNDOADMIN 22:34 → Y3N 22:34 → UNDODISIN 01-26 12:21
PROVIDERS: ADMIT Allergy & Immunology; ATTEND Surgery
PROC: HZ2ZZZZ Detoxification Services for Substance Abuse Treatment (ICD-10-PCS; principal; 2022-01-24)
DX: F10.230 Alcohol dependence with withdrawal, uncomplicated (principal); F14.20 Cocaine dependence, uncomplicated; F17.210 Nicotine dependence, cigarettes, uncomplicated; G47.00 Insomnia, unspecified; M54.30 Sciatica, unspecified side; G89.29 Other chronic pain; Z87.19 Personal history of other diseases of the digestive system; Z86.79 Personal history of other diseases of the circulatory system; Z87.09 Personal history of other diseases of the respiratory system; Z91.81 History of falling; Z99.89 Dependence on other enabling machines and devices; Z28.310 Unvaccinated for COVID-19; Z28.9 Immunization not carried out for unspecified reason
CPT/HCPCS: 36415; 80053; 85027; 86780; 87811; C9803-CS; G0008; Q2036; U0003; U0005

== ENCOUNTER 2022-04-05 21:28 | Observation (INO) | payer OTHER ==
[2022-04-05 21:52] VITALS: BMI 25.0
[2022-04-06] MEDS ORDERED: KETOROLAC TROMETHAMINE 30 MG/1 ML VIAL IM ONE (00:54)
[2022-04-06] MEDS ORDERED: KETOROLAC TROMETHAMINE 30 MG/1 ML VIAL ONE (01:01)
[2022-04-06 03:42] LABS: BASO % 0.5 % (0-2.0); EOS % 0.3 % (0-4.5); HEMOGLOBIN 11.1 GM/dL (11.7-16.9); LYMPH % 14.4 % (8-40); MCH 31.2 pg (25.7-33.7); MCHC 33.8 g/dl (32.0-35.9); MEAN CELL VOLUME 92.3 fl (80-96); MEAN PLT VOLUME 7.5 fl (7.5-11.1); MONO % 14.1 % (3.8-10.2); NEUT % 70.7 % (42.8-82.8); PLATELET COUNT 276 10^3/uL (134-434); RBC 3.57 M/mm3 (4.00-5.60); RDW 13.8 % (11.9-15.9); WHITE BLOOD COUNT 8.4 K/mm3 (4.0-10.0)
[2022-04-06 04:02] LABS: CALCIUM 9.2 mg/dL (8.5-10.1)
[2022-04-06 04:03] LABS: ALBUMIN 3.4 g/dl (3.4-5.0); BLOOD UREA NITROGEN 6.8 mg/dL (7-18)
[2022-04-06 04:06] LABS: CREATININE 0.9 mg/dL (0.55-1.3)
[2022-04-06 04:07] LABS: BILIRUBIN,TOTAL 0.4 mg/dL (0.2-1); TOT PROT 7.3 g/dl (6.4-8.2)
[2022-04-06 04:30] LABS: ERYTHROCYTE SEDIMENTATION RATE 98 mm/hr (0-20)
[2022-04-06] MEDS: INDOMETHACIN 25 MG CAPSULE PO SCH ×4 (06:29→22:57)
[2022-04-06] MEDS ORDERED: ENOXAPARIN NA (PORCINE) 40 MG/0.4 ML DISP.SYRIN SQ ONE (08:18)
[2022-04-06] MEDS: ENOXAPARIN NA (PORCINE) 40 MG/0.4 ML DISP.SYRIN SQ SCH (09:13)
[2022-04-07] MEDS: INDOMETHACIN 25 MG CAPSULE PO SCH ×3 (06:36→21:59)
[2022-04-07] MEDS: ENOXAPARIN NA (PORCINE) 40 MG/0.4 ML DISP.SYRIN SQ SCH (09:17)
[2022-04-07 09:49] LABS: BASO % 0.4 % (0-2.0); EOS % 1.3 % (0-4.5); HEMATOCRIT 30.5 % (35.4-49); HEMOGLOBIN 10.1 GM/dL (11.7-16.9); LYMPH % 21.2 % (8-40); MCH 30.7 pg (25.7-33.7); MCHC 33.3 g/dl (32.0-35.9); MEAN CELL VOLUME 92.1 fl (80-96); MEAN PLT VOLUME 7.8 fl (7.5-11.1); MONO % 13.1 % (3.8-10.2); PLATELET COUNT 245 10^3/uL (134-434); RBC 3.31 M/mm3 (4.00-5.60); RDW 13.6 % (11.9-15.9); WHITE BLOOD COUNT 6.2 K/mm3 (4.0-10.0)
[2022-04-07 10:07] LABS: BLOOD UREA NITROGEN 9.8 mg/dL (7-18); CALCIUM 8.9 mg/dL (8.5-10.1); MAGNESIUM 1.3 mg/dL (1.8-2.4)
[2022-04-07 10:10] LABS: CREATININE 0.9 mg/dL (0.55-1.3); PHOSPHOROUS 2.9 mg/dL (2.5-4.9)
[2022-04-07 10:12] LABS: BILIRUBIN,TOTAL 0.5 mg/dL (0.2-1)
[2022-04-07 10:21] LABS: ALBUMIN 2.7 g/dl (3.4-5.0)
[2022-04-07] MEDS ORDERED: MAGNESIUM SULF 50% (8.12 MEQ/2 ML-1 GM VIAL) IVPB ONE (10:51)
[2022-04-07] MEDS ORDERED: KCL 10 MEQ IVPB 10 MEQ/100 ML INFUS.BAG IVPB SCH (11:00)
[2022-04-07] MEDS: guaiFENesin/CODEINE 5 ML UNIT-DOSE CUPS PO PRN (14:37)
[2022-04-07 21:40] LABS: BF WBC & OTHER NUCLEATED CELLS 43417 /mm3; BODY FLUID MONOCYTE 14 %; BODYL FLD EOSINOPHIL 2 %
[2022-04-07 22:58] LABS: CRYSTALS,SYNOVIAL FLUID NEGATIVE
[2022-04-08] MEDS: INDOMETHACIN 25 MG CAPSULE PO SCH ×3 (06:02→21:09)
[2022-04-08] MEDS: ENOXAPARIN NA (PORCINE) 40 MG/0.4 ML DISP.SYRIN SQ SCH (09:39)
[2022-04-08] MEDS ORDERED: CEFTRIAXONE 1 GM in DEXTROSE 5%-WATER - 50 ML IVPB SCH (10:00)
[2022-04-08 10:37] LABS: BASO % 0.5 % (0-2.0); EOS % 2.4 % (0-4.5); HEMATOCRIT 28.8 % (35.4-49); HEMOGLOBIN 9.5 GM/dL (11.7-16.9); LYMPH % 23.1 % (8-40); MCH 30.5 pg (25.7-33.7); MEAN CELL VOLUME 92.5 fl (80-96); MEAN PLT VOLUME 8.3 fl (7.5-11.1); MONO % 14.7 % (3.8-10.2); NEUT % 59.3 % (42.8-82.8); PLATELET COUNT 267 10^3/uL (134-434); RBC 3.12 M/mm3 (4.00-5.60); RDW 13.4 % (11.9-15.9); WHITE BLOOD COUNT 5.3 K/mm3 (4.0-10.0)
[2022-04-08 10:55] LABS: CALCIUM 8.8 mg/dL (8.5-10.1)
[2022-04-08 10:56] LABS: ALBUMIN 2.6 g/dl (3.4-5.0); BLOOD UREA NITROGEN 10.9 mg/dL (7-18); MAGNESIUM 1.5 mg/dL (1.8-2.4)
[2022-04-08 10:59] LABS: CREATININE 0.8 mg/dL (0.55-1.3); PHOSPHOROUS 3.3 mg/dL (2.5-4.9)
[2022-04-08 11:00] LABS: BILIRUBIN,TOTAL 0.2 mg/dL (0.2-1); TOT PROT 5.8 g/dl (6.4-8.2)
[2022-04-08] MEDS ORDERED: MAGNESIUM SULF 50% (8.12 MEQ/2 ML-1 GM VIAL) IVPB ONE (11:58)
[2022-04-08] MEDS: guaiFENesin/CODEINE 5 ML UNIT-DOSE CUPS PO PRN (12:34)
[2022-04-09] MEDS: INDOMETHACIN 25 MG CAPSULE PO SCH (05:17)
[2022-04-09] MEDS ORDERED: INDOMETHACIN 25 MG CAPSULE PO SCH (08:16)
[2022-04-09] MEDS ORDERED: INDOMETHACIN 50 MG CAPSULE PO SCH (08:37)
[2022-04-09] MEDS: ENOXAPARIN NA (PORCINE) 40 MG/0.4 ML DISP.SYRIN SQ SCH (09:42)
[2022-04-09] MEDS ORDERED: ACETAMINOPHEN 1000 MG/100 ML BAG IVPB ONE (10:20)
[2022-04-09 10:25] LABS: BASO % 0.9 % (0-2.0); EOS % 3.2 % (0-4.5); HEMOGLOBIN 10.1 GM/dL (11.7-16.9); LYMPH % 24.6 % (8-40); MCH 31.1 pg (25.7-33.7); MCHC 33.6 g/dl (32.0-35.9); MEAN CELL VOLUME 92.6 fl (80-96); MEAN PLT VOLUME 7.9 fl (7.5-11.1); MONO % 14.9 % (3.8-10.2); NEUT % 56.4 % (42.8-82.8); PLATELET COUNT 289 10^3/uL (134-434); RBC 3.24 M/mm3 (4.00-5.60); RDW 13.3 % (11.9-15.9); WHITE BLOOD COUNT 5.7 K/mm3 (4.0-10.0)
[2022-04-09 10:58] LABS: CALCIUM 9.1 mg/dL (8.5-10.1)
[2022-04-09 10:59] LABS: ALBUMIN 2.8 g/dl (3.4-5.0); BLOOD UREA NITROGEN 10.6 mg/dL (7-18); MAGNESIUM 1.6 mg/dL (1.8-2.4)
[2022-04-09 11:02] LABS: CREATININE 0.8 mg/dL (0.55-1.3); PHOSPHOROUS 3.5 mg/dL (2.5-4.9)
[2022-04-09 11:04] LABS: BILIRUBIN,TOTAL 0.3 mg/dL (0.2-1); TOT PROT 6.3 g/dl (6.4-8.2)
[2022-04-09 14:26] VITALS: BP 112/64; PULSE 79; RESP 20; TEMP 98.2
== END 2022-04-09 15:28 | disposition home or self-care (01) ==
LOC: JER 21:28 → JERBED 04-06 05:02 → UNDOADMOB 04-06 05:02 → INTOOBSV 04-06 05:02 → J6W 04-06 12:39 → JERBED 04-06 12:39 → J6W 04-06 16:01
PROVIDERS: ADMIT Family Medicine
PROC: 3E03329 Introduction of Other Anti-infective into Peripheral Vein, Percutaneous Approach (ICD-10-PCS; principal; 2022-04-06)
PROC: 3E033NZ Introduction of Analgesics, Hypnotics, Sedatives into Peripheral Vein, Percutaneous Approach (ICD-10-PCS; 2022-04-06)
PROC: 3E023GC Introduction of Other Therapeutic Substance into Muscle, Percutaneous Approach (ICD-10-PCS; 2022-04-06)
PROC: 3E0233Z Introduction of Anti-inflammatory into Muscle, Percutaneous Approach (ICD-10-PCS; 2022-04-06)
PROC: 3E033GC Introduction of Other Therapeutic Substance into Peripheral Vein, Percutaneous Approach (ICD-10-PCS; 2022-04-06)
PROC: 3E0337Z Introduction of Electrolytic and Water Balance Substance into Peripheral Vein, Percutaneous Approach (ICD-10-PCS; 2022-04-06)
DX: M25.561 Pain in right knee (principal); R22.41 Localized swelling, mass and lump, right lower limb; M11.261 Other chondrocalcinosis, right knee; I25.10 Atherosclerotic heart disease of native coronary artery without angina pectoris; M10.9 Gout, unspecified; R26.2 Difficulty in walking, not elsewhere classified; I10 Essential (primary) hypertension; K85.90 Acute pancreatitis without necrosis or infection, unspecified; F19.10 Other psychoactive substance abuse, uncomplicated
CPT/HCPCS: 0241U-QW; 36415; 73560-TC-RT-FY; 73590-TC-RT-FY; 73610-TC-RT-FY; 80053; 82962; 83036; 83735; 84100; 84550; 85025; 85651; 86038; 86140; 86431; 86618; 87040; 87070; 87075; 87205; 89060; 93005; 93010; 93971-TC; 96361; 96365; 96372; 96375; 96376; 97116-GP; 97162-GP; 99285-25; G0378

== ENCOUNTER 2023-12-28 18:35 | Inpatient (IN) | payer OTHER ==
[2023-12-28 19:53] LABS: BASO % 0.3 % (0-2.0); HEMATOCRIT 37.6 % (35.4-49); HEMOGLOBIN 12.6 GM/dL (11.7-16.9); LYMPH % 11.5 % (8-40); MCH 31.6 pg (25.7-33.7); MCHC 33.6 g/dl (32.0-35.9); MEAN CELL VOLUME 94.1 fl (80-96); MEAN PLT VOLUME 8.4 fl (7.5-11.1); MONO % 6.6 % (3.8-10.2); NEUT % 81.6 % (42.8-82.8); PLATELET COUNT 199 10^3/uL (134-434); RBC 3.99 M/mm3 (4.00-5.60); RDW 13.7 % (11.9-15.9); WHITE BLOOD COUNT 8.7 K/mm3 (4.0-10.0)
[2023-12-28 20:01] LABS: INR 1.06 (0.83-1.09); PROTHROMBIN TIME (PATIENT) 12.2 SEC (9.7-13.0)
[2023-12-28 20:04] LABS: ACTIVATED PTT 37.7 SECONDS (25.2-36.5)
[2023-12-28 20:08] LABS: POTASSIUM 3.6 mmol/L (3.5-5.1); SODIUM 135 mmol/L (136-145)
[2023-12-28 20:10] LABS: CO2 29 mmol/L (21-32)
[2023-12-28 20:13] LABS: CREATININE 0.8 mg/dL (0.55-1.3)
[2023-12-28 20:15] LABS: TOT PROT 7.5 g/dl (6.4-8.2)
[2023-12-28 20:16] LABS: BILIRUBIN,TOTAL 0.8 mg/dL (0.2-1); LDL CHOLESTEROL (ONLY SJRH) 30 mg/dL (5-100)
[2023-12-28 20:31] LABS: CHLORIDE 95 mmol/L (98-107)
[2023-12-28 20:33] LABS: CALCIUM 9.2 mg/dL (8.5-10.1)
[2023-12-28 20:34] LABS: ALBUMIN 3.9 g/dl (3.4-5.0); ANION GAP 11 mmol/L (4-13); BLOOD UREA NITROGEN 11.4 mg/dL (7-18); GLUCOSE,RANDOM 118 mg/dL (74-106)
[2023-12-28 20:37] LABS: CHOLESTEROL 145 mg/dL (50-200); SGOT/AST 80 U/L (15-37); SGPT/ALT 30 U/L (13-61)
[2023-12-28 20:39] LABS: HDL CHOLESTEROL 113 mg/dL (40-60)
[2023-12-28 20:40] LABS: ALK PHOS 79 U/L (45-117)
[2023-12-28] MEDS ORDERED: ASPIRIN 81 MG CHEWABLE TABLETS ONE ×2 (22:00→22:07)
[2023-12-28] MEDS: ASPIRIN 325 MG TABLET PO ONE ×2 (22:03→22:14)
[2023-12-29] MEDS: SODIUM CHLORIDE 1,000 ML IV SCH (00:28)
[2023-12-29 07:34] LABS: BASO % 0.4 % (0-2.0); HEMATOCRIT 40.6 % (35.4-49); HEMOGLOBIN 13.6 GM/dL (11.7-16.9); LYMPH % 16.6 % (8-40); MCH 31.5 pg (25.7-33.7); MCHC 33.6 g/dl (32.0-35.9); MEAN CELL VOLUME 93.7 fl (80-96); MEAN PLT VOLUME 9.5 fl (7.5-11.1); MONO % 7.8 % (3.8-10.2); NEUT % 75.2 % (42.8-82.8); PLATELET COUNT 222 10^3/uL (134-434); RBC 4.33 M/mm3 (4.00-5.60); RDW 13.4 % (11.9-15.9); WHITE BLOOD COUNT 8.1 K/mm3 (4.0-10.0)
[2023-12-29 07:59] LABS: POTASSIUM 3.6 mmol/L (3.5-5.1)
[2023-12-29 08:00] LABS: MAGNESIUM 1.2 mg/dL (1.8-2.4)
[2023-12-29 08:02] LABS: CALCIUM 9.7 mg/dL (8.5-10.1)
[2023-12-29 08:03] LABS: ALBUMIN 4.1 g/dl (3.4-5.0)
[2023-12-29 08:06] LABS: CREATININE 0.7 mg/dL (0.55-1.3)
[2023-12-29] MEDS: ASPIRIN COATED 81 MG TABLET.EC PO SCH (09:05)
[2023-12-29] MEDS: ENOXAPARIN NA (PORCINE) 40 MG/0.4 ML DISP.SYRIN SQ SCH (09:05)
[2023-12-29] MEDS: MAGNESIUM SULFATE IN WATER 2 GM/50 ML IVPB IVPB ONE (13:03)
[2023-12-29] MEDS: POTASSIUM CHLORIDE ORAL LIQUID 20 MEQ/15 ML PO ONE (13:03)
[2023-12-29] MEDS: DEXTROSE 5%-NORMAL SALINE 1,000 ML IV SCH (16:28)
[2023-12-29 16:37] LABS: URINE APPEARANCE CLOUDY; URINE COLOR YELLOW; URINE GLUCOSE (UA) NEGATIVE (NEGATIVE)
[2023-12-29 16:38] LABS: PH,URINE 5.5 (5.0-8.0); URINE BILIRUBIN NEGATIVE (NEGATIVE); URINE KETONE 1+ (NEGATIVE)
[2023-12-29 16:39] LABS: URINE LEUK ESTERASE 2+ (NEGATIVE); URINE NITRITE NEGATIVE (NEGATIVE); URINE PROTEIN 1+ (NEGATIVE)
[2023-12-29] MEDS: ATORVASTATIN CA 40 MG TABLET (FP) PO SCH (21:51)
[2023-12-29 22:03] LABS: YEAST POSITIVE (NEGATIVE)
[2023-12-29] MEDS: HALOPERIDOL LACTATE 5 MG/ML IM ONE (23:32)
[2023-12-30 07:27] LABS: CHLORIDE 100 mmol/L (98-107); SODIUM 137 mmol/L (136-145)
[2023-12-30 07:29] LABS: CALCIUM 8.9 mg/dL (8.5-10.1)
[2023-12-30 07:30] LABS: ALBUMIN 3.7 g/dl (3.4-5.0); BLOOD UREA NITROGEN 17.3 mg/dL (7-18); CO2 30 mmol/L (21-32); GLUCOSE,RANDOM 104 mg/dL (74-106)
[2023-12-30 07:33] LABS: CREATININE 0.7 mg/dL (0.55-1.3); SGOT/AST 88 U/L (15-37); SGPT/ALT 39 U/L (13-61)
[2023-12-30 07:35] LABS: BASO % 0.2 % (0-2.0); BILIRUBIN,TOTAL 0.7 mg/dL (0.2-1); EOS % 0.2 % (0-4.5); HEMOGLOBIN 12.1 GM/dL (11.7-16.9); LYMPH % 19.1 % (8-40); MCH 31.5 pg (25.7-33.7); MCHC 33.5 g/dl (32.0-35.9); MEAN CELL VOLUME 93.9 fl (80-96); MEAN PLT VOLUME 9.1 fl (7.5-11.1); MONO % 8.5 % (3.8-10.2); PLATELET COUNT 208 10^3/uL (134-434); RBC 3.83 M/mm3 (4.00-5.60); RDW 13.1 % (11.9-15.9); TOT PROT 7.1 g/dl (6.4-8.2); WHITE BLOOD COUNT 8.3 K/mm3 (4.0-10.0)
[2023-12-30 07:36] LABS: ALK PHOS 66 U/L (45-117)
[2023-12-30 07:55] LABS: ANION GAP 7 mmol/L (4-13); POTASSIUM 2.9 mmol/L (3.5-5.1)
[2023-12-30] MEDS: KCL 10 MEQ IVPB 10 MEQ/100 ML INFUS.BAG IVPB SCH (10:58)
[2023-12-30] MEDS: D5-1/2NS+20 MEQ KCL - 20 MEQ/1,000 ML INFUS.BAG IV SCH (13:31)
[2023-12-30] MEDS: POTASSIUM CHLORIDE ORAL LIQUID 20 MEQ/15 ML PO ONE (13:33)
[2023-12-31 08:27] LABS: BASO % 0.5 % (0-2.0); EOS % 0.8 % (0-4.5); HEMATOCRIT 37.9 % (35.4-49); HEMOGLOBIN 12.9 GM/dL (11.7-16.9); LYMPH % 29.1 % (8-40); MCH 31.5 pg (25.7-33.7); MEAN CELL VOLUME 92.7 fl (80-96); MEAN PLT VOLUME 8.9 fl (7.5-11.1); MONO % 8.9 % (3.8-10.2); NEUT % 60.7 % (42.8-82.8); PLATELET COUNT 206 10^3/uL (134-434); RBC 4.09 M/mm3 (4.00-5.60); RDW 13.2 % (11.9-15.9)
[2023-12-31 08:41] LABS: POTASSIUM 3.7 mmol/L (3.5-5.1)
[2023-12-31 08:54] LABS: ALBUMIN 3.6 g/dl (3.4-5.0); CALCIUM 9.2 mg/dL (8.5-10.1)
[2023-12-31 08:57] LABS: CREATININE 0.6 mg/dL (0.55-1.3)
[2023-12-31 08:59] LABS: BILIRUBIN,TOTAL 0.7 mg/dL (0.2-1); TOT PROT 6.6 g/dl (6.4-8.2)
[2023-12-31 12:40] LABS: MAGNESIUM 1.4 mg/dL (1.8-2.4)
[2024-01-01] MEDS: QUEtiapine FUMARATE 25 MG TABLET PO ONE (18:45)
[2024-01-02 08:08] LABS: BASO % 0.5 % (0-2.0); EOS % 2.1 % (0-4.5); HEMATOCRIT 37.3 % (35.4-49); HEMOGLOBIN 12.8 GM/dL (11.7-16.9); LYMPH % 29.7 % (8-40); MCH 31.6 pg (25.7-33.7); MCHC 34.3 g/dl (32.0-35.9); MEAN CELL VOLUME 91.9 fl (80-96); MEAN PLT VOLUME 8.8 fl (7.5-11.1); MONO % 10.8 % (3.8-10.2); NEUT % 56.9 % (42.8-82.8); PLATELET COUNT 234 10^3/uL (134-434); RBC 4.06 M/mm3 (4.00-5.60); RDW 13.1 % (11.9-15.9); WHITE BLOOD COUNT 6.4 K/mm3 (4.0-10.0)
[2024-01-02 08:21] LABS: POTASSIUM 4.2 mmol/L (3.5-5.1)
[2024-01-02 08:31] LABS: ALBUMIN 3.8 g/dl (3.4-5.0); CALCIUM 9.7 mg/dL (8.5-10.1)
[2024-01-02 08:32] LABS: BLOOD UREA NITROGEN 12.4 mg/dL (7-18)
[2024-01-02 08:35] LABS: CREATININE 0.6 mg/dL (0.55-1.3)
[2024-01-02 08:36] LABS: BILIRUBIN,TOTAL 0.7 mg/dL (0.2-1); TOT PROT 7.2 g/dl (6.4-8.2)
[2024-01-02] MEDS: QUEtiapine FUMARATE 25 MG TABLET PO SCH (09:09)
[2024-01-03 06:42] VITALS: RESP 18
[2024-01-05 12:19] VITALS: BMI 20.1
[2024-01-05 13:14] LABS: BASO % 0.9 % (0-2.0); EOS % 2.2 % (0-4.5); HEMATOCRIT 31.6 % (35.4-49); HEMOGLOBIN 10.5 GM/dL (11.7-16.9); LYMPH % 18.8 % (8-40); MCH 31.2 pg (25.7-33.7); MCHC 33.1 g/dl (32.0-35.9); MEAN CELL VOLUME 94.4 fl (80-96); MONO % 15.1 % (3.8-10.2); PLATELET COUNT 189 10^3/uL (134-434); RBC 3.35 M/mm3 (4.00-5.60); RDW 13.1 % (11.9-15.9); WHITE BLOOD COUNT 6.6 K/mm3 (4.0-10.0)
[2024-01-05 13:34] LABS: POTASSIUM 4.6 mmol/L (3.5-5.1)
[2024-01-05 13:38] LABS: CALCIUM 9.5 mg/dL (8.5-10.1)
[2024-01-05 13:41] LABS: CREATININE 0.7 mg/dL (0.55-1.3)
[2024-01-05 14:19] VITALS: BP 118/76; PULSE 59; TEMP 97.7
[2024-01-05] MEDS ORDERED: MAGNESIUM SULF 50% (8.12 MEQ/2 ML-1 GM VIAL) IVPB ONE (16:40)
[2024-01-05] MEDS: MAGNESIUM OXIDE 400 MG TABLET (FP) PO ONE (17:21)
== END 2024-01-05 17:58 | DRG 64 ==
LOC: JER 18:35 → JERBED 22:21 → J4W 12-29 03:47
PROVIDERS: ADMIT Internal Medicine; ATTEND Internal Medicine
DX: I63.89 Other cerebral infarction (principal); E43 Unspecified severe protein-calorie malnutrition; G81.94 Hemiplegia, unspecified affecting left nondominant side; M62.82 Rhabdomyolysis; Z68.1 Body mass index [BMI] 19.9 or less, adult; R47.81 Slurred speech; R29.707 NIHSS score 7; G40.909 Epilepsy, unspecified, not intractable, without status epilepticus; I25.10 Atherosclerotic heart disease of native coronary artery without angina pectoris; M10.9 Gout, unspecified; E83.42 Hypomagnesemia; G47.00 Insomnia, unspecified; R79.89 Other specified abnormal findings of blood chemistry; F19.10 Other psychoactive substance abuse, uncomplicated; E87.6 Hypokalemia; I11.0 Hypertensive heart disease with heart failure; I50.9 Heart failure, unspecified; S00.81XA Abrasion of other part of head, initial encounter; W18.30XA Fall on same level, unspecified, initial encounter; Y93.9 Activity, unspecified; Y92.099 Unspecified place in other non-institutional residence as the place of occurrence of the external cause; Y99.9 Unspecified external cause status
CPT/HCPCS: 36415; 70450-TC; 70496-TC; 70498-TC; 70551-TC; 71045-TC-FY; 80048; 80053; 80061; 81003; 82550; 82553; 82962; 83036; 83735; 84100; 84484; 85025; 85610; 85730; 86850; 86870; 86880; 86900; 86901; 86902; 93005; 93010; 93306-TC; 93880-TC; 97116-GP; 97162-GP; 99285-25; Q9967

== ENCOUNTER 2024-12-07 08:05 | Observation (INO) | payer OTHER ==
[2024-12-07 09:15] LABS: ABSOLUTE IMMATURE GRANULOCYTES 0.02 x10^3/uL (0.0-0.031); BASOPHILS # 0.05 x10^3/uL (0.01-0.08); EOSINOPHIL % 2.6 % (0.8-7.0); EOSINOPHILS # 0.15 x10^3/uL (0.04-0.54); MCHC 32.7 g/dl (32.3-36.5); MEAN CELL VOLUME 94.3 fl (79.0-92.2); MEAN PLT VOLUME 9.9 fl (9.4-12.4); MONOCYTE # 0.65 x10^3/uL (0.30-0.82); MONOCYTE % 11.1 % (5.3-12.2); RDW 12.9 % (12.2-16.6)
[2024-12-07 09:22] LABS: INR 1.03 (0.83-1.09); PROTHROMBIN TIME (PATIENT) 11.2 SEC (9.7-13.0)
[2024-12-07 09:24] LABS: ACTIVATED PTT 37.0 SECONDS (25.2-36.5)
[2024-12-07 10:14] LABS: GLUCOSE,RANDOM 98.0 mg/dL (74-106); TOT PROT 7.1 g/dl (6.4-8.2)
[2024-12-07 10:15] LABS: CO2 26.0 mmol/L (21-32)
[2024-12-07 10:17] LABS: ALK PHOS 116.0 U/L (40-150)
[2024-12-07 10:20] LABS: CREATININE 0.64 mg/dL (0.55-1.3); SGOT/AST 26.0 U/L (5-34); SGPT/ALT 16.0 U/L (0-55)
[2024-12-07 10:32] LABS: HIV INTERPRETATION NEGATIVE (NEGATIVE)
[2024-12-07] MEDS ORDERED: CLOPIDOGREL BISULFATE 300 MG TABLET ONE (12:01)
[2024-12-07] MEDS ORDERED: ASPIRIN 81 MG CHEWABLE TABLETS ONE (12:02)
[2024-12-07] MEDS: ASPIRIN 81 MG CHEWABLE TABLETS PO ONE (12:05)
[2024-12-07] MEDS: CLOPIDOGREL BISULFATE 300 MG TABLET PO ONE (12:05)
[2024-12-07 12:50] LABS: HCV DIAGNOSTIC IN-HOUSE W/RFLX REACTIVE (NONREACTIVE)
[2024-12-07] MEDS: ACETAMINOPHEN 325 MG TABLET (FP) PO PRN (20:55)
[2024-12-07] MEDS: levETIRAcetam 500 MG TABLET (FP) PO SCH (21:20)
[2024-12-07] MEDS: ATORVASTATIN CA 40 MG TABLET (FP) PO SCH (21:20)
[2024-12-07] MEDS: THIAMINE 100 MG TABLET PO SCH (21:21)
[2024-12-07] MEDS: PHENYTOIN 100 MG/4 ML U-D CUP PO SCH (21:31)
[2024-12-08] MEDS: MAGNESIUM SULFATE IN WATER 2 GM/50 ML IVPB IVPB ONE (00:34)
[2024-12-08 07:00] LABS: GLUCOSE,RANDOM 101.0 mg/dL (74-106); MCHC 33.5 g/dl (32.3-36.5); MEAN CELL VOLUME 92.0 fl (79.0-92.2); MEAN PLT VOLUME 10.0 fl (9.4-12.4); RDW 12.7 % (12.2-16.6)
[2024-12-08 07:01] LABS: TOT PROT 6.2 g/dl (6.4-8.2)
[2024-12-08 07:02] LABS: CO2 29.0 mmol/L (21-32)
[2024-12-08 07:06] LABS: CREATININE 0.58 mg/dL (0.55-1.3); SGOT/AST 19.0 U/L (5-34); SGPT/ALT 12.0 U/L (0-55)
[2024-12-08 07:07] LABS: LDL CHOLESTEROL (ONLY SJRH) 46.0 mg/dL (5-100)
[2024-12-08 07:08] LABS: ALK PHOS 101.0 U/L (40-150)
[2024-12-08] MEDS: POTASSIUM CHLORIDE ORAL LIQUID 20 MEQ/15 ML PO ONE (10:01)
[2024-12-08] MEDS: ASPIRIN COATED 81 MG TABLET.EC PO SCH (10:01)
[2024-12-08] MEDS: FOLIC ACID 1 MG TABLET (FP) PO SCH (10:01)
[2024-12-08 15:16] VITALS: BMI 19.3
[2024-12-09 15:03] VITALS: RESP 18
[2024-12-09] MEDS: levETIRAcetam 500 MG TABLET (FP) PO SCH (21:15)
[2024-12-09] MEDS: PHENYTOIN 100 MG/4 ML U-D CUP PO SCH (21:15)
[2024-12-09] MEDS: ATORVASTATIN CA 40 MG TABLET (FP) PO SCH (21:15)
[2024-12-09] MEDS: THIAMINE 100 MG TABLET PO SCH (21:16)
[2024-12-09] MEDS: ACETAMINOPHEN 325 MG TABLET (FP) PO PRN (23:49)
[2024-12-10] MEDS: MAG HYDROX/AL HYDROX/SIMETH 30 ML UNIT-DOSE CUP PO ONE (02:28)
[2024-12-10 06:45] VITALS: TEMP 97.7
[2024-12-10 08:17] LABS: GLUCOSE,RANDOM 102.0 mg/dL (74-106)
[2024-12-10 08:18] LABS: TOT PROT 6.6 g/dl (6.4-8.2)
[2024-12-10 08:19] LABS: CO2 29.0 mmol/L (21-32)
[2024-12-10 08:20] LABS: ALK PHOS 109.0 U/L (40-150)
[2024-12-10 08:23] LABS: CREATININE 0.82 mg/dL (0.55-1.3); SGOT/AST 25.0 U/L (5-34); SGPT/ALT 18.0 U/L (0-55)
[2024-12-10 08:25] LABS: MCHC 32.3 g/dl (32.3-36.5); MEAN CELL VOLUME 94.3 fl (79.0-92.2); MEAN PLT VOLUME 10.3 fl (9.4-12.4); RDW 13.0 % (12.2-16.6)
[2024-12-10 08:34] VITALS: BP 113/68
[2024-12-10] MEDS: FOLIC ACID 1 MG TABLET (FP) PO SCH (10:06)
[2024-12-10] MEDS: ASPIRIN COATED 81 MG TABLET.EC PO SCH (10:07)
[2024-12-10] MEDS: PANTOPRAZOLE 40 MG TABLET PO ONE (15:38)
[2024-12-10 15:39] VITALS: PULSE 64
[2024-12-10] MEDS ORDERED: MAG HYDROX/AL HYDROX/SIMETH 30 ML UNIT-DOSE CUP PO SCH (18:00)
== END 2024-12-10 17:07 ==
LOC: JER 08:05 → JERBED 10:31 → J2W 12:52 → J6W TELE 12-09 17:13
PROVIDERS: ADMIT Family Medicine; ATTEND Family Medicine
PROC: 3E033GC Introduction of Other Therapeutic Substance into Peripheral Vein, Percutaneous Approach (ICD-10-PCS; principal; 2024-12-07)
DX: I69.391 Dysphagia following cerebral infarction (principal); I10 Essential (primary) hypertension; F19.10 Other psychoactive substance abuse, uncomplicated; I25.10 Atherosclerotic heart disease of native coronary artery without angina pectoris; M10.9 Gout, unspecified; D64.9 Anemia, unspecified; M19.90 Unspecified osteoarthritis, unspecified site; I25.2 Old myocardial infarction; J40 Bronchitis, not specified as acute or chronic; Z87.19 Personal history of other diseases of the digestive system; F99 Mental disorder, not otherwise specified; F17.210 Nicotine dependence, cigarettes, uncomplicated
CPT/HCPCS: 36415; 70450-TC; 70496-TC; 70498-TC; 71045-TC-FY; 71250-TC; 80053; 80061; 80177; 82607; 82747; 82962; 83036; 83735; 84207; 84484; 85014; 85025; 85027; 85610; 85730; 86803; 86850; 86870; 86880; 86900; 86901; 86902; 87389; 87522; 93005; 93010; 94660; 96365; 97116-GP; 97161-GP; 99285-25; G0378